=== PATIENT | female | born 1945 | race Caucasian/White ===

== ENCOUNTER 2020-01-15 14:23 | Emergency (ER) | payer MEDICARE, MEDICAID, SELFPAY ==
[2020-01-15] VITALS (8 sets, daily range): BP systolic 117–159; BP diastolic 71–92; PULSE 73–94; RESP 15–18; TEMP 36.6; O2SAT 93–96; BMI 23.5
--- NOTE | 2020-01-15 14:49 | CT_ITS ---
WS: [id number] CT HEAD NONCONTRAST HISTORY: AMS TECHNIQUE: Contiguous axial imaging performed through the brain in 2.5 mm imaging. Bone and soft tiss ue windows. Sagittal and coronal reformats reviewed. All CT scans at [facility] use at ast one of these dose optimization techniques: automated exposure control; mA and/or kV adjustment pe r patient size (includes targeted exams where dose is matched to clinical indication); or iterative r econstruction. DLP: 530.27 mGy.cm COMPARISON: 06/15/2019 No acute intracranial hemorrhage, midline shift or mass effect. Mild atrophy and moderate chronic microvascular ischemic disease. Ventricles: Normal size with no hydrocephalus. Paranasal sinuses: As visualized are clear. Mastoid air cells: Well pneumatized. Calvarium and scalp: Skull is intact with no soft tissue edema or swelling. CT/CT head wo con* [id number] IMPRESSION: 1. No acute intracranial hemorrhage. 2. Mild cerebral atrophy and moderate chronic microvascular ischemic disease. Similar to the prior study of 06/15/2019.
--- NOTE | 2020-01-15 14:49 | XR_ITS ---
WS: [id number] PORTABLE CHEST HISTORY: AMS COMPARISON: 03/15/2019 Mild pulmonary hyperexpansion. No pneumonia. Normal vasculature. No pleural effusion or pneumothorax. Cardiac size: Normal. Mediastinum/Aorta: Mild atherosclerosis aorta. Diffuse osteopenia. XR/XR chest 1V portable [id number] IMPRESSION: Chronic emphysema with no pneumonia.
--- NOTE | 2020-01-15 14:50 | ECG_ITS ---
Measurements Intervals [place] Rate: 79 P: 52 IL: 142 QRS: 36 QRSD: 89 T: 84 QT: 401 QTc: 461 SINUS RHYTHM NONSPECIFIC T-WAVE ABNORMALITY Compared to ECG 06/13/2019 23:41:49 T-wave abnormality now present Electronically Signed On 01-15-2020 16:48:16 CDT by Ata Stapleton M.D. [id number] f
--- NOTE | 2020-01-15 15:31 | W.ED.AMS ---
HPI - Altered Mental Status General: Chief Complaint: Altered Mental Status Stated Complaint: AMS Time Seen by Provider: 01/15/20 14:38 History of Present Illness: HPI narrative: Patient is a 74-year-old female coming from [facility]. She was sent for decreased mental status and decreased respiratory rate. She also had a fall over the weekend and there is concern that she could have an occult right hip fracture. Review of Systems General: Reports: ROS unobtainable due to mental status PFSH ED PFSH: Social History Smoking and tobacco status: unknown if ever smoked Physical Exam Const: COMMON NORMALS: no acute distress and no limitations GENERAL APPEARANCE: comfortable HENMT: HEAD & SCALP: normal to inspection FACE & SINUS: normal facial exam Eye: GENERAL EYE: appearance normal, both eyes and all related structures Neck/C-Spine: COMMON NORMALS: supple, no meningeal signs and no JVD Chest: COMMONS NORMALS: normal inspection of the chest Resp: COMMON NORMALS: normal respiratory effort, No use of accessory muscles and clear to auscultation bilaterally AUSCULTATION: clear to auscultation bilaterally Cardio: COMMON NORMALS: no JVD, regular rate, regular rhythm and No murmurs present (Cardio) RATE: regular rate RHYTHM: regular rhythm GI: COMMON NORMALS: Normal to inspection, nondistended, normoactive bowel sounds present, Soft to palpation and non-tender INSPECTION: Yes normal to inspection AUSCULTATION: Yes normoactive bowel sounds PALPATION: Yes Soft to palpation Back/Pelvis: COMMON NORMALS: thoracic and lumbar spine normal to inspection Extremity: COMMON NORMALS: normal to inspection RIGHT LOWER EXTREMITY: Yes hip joint (Pain with any attempt to range the hip, pulses intact bilaterally.) Neuro: COMMON NORMALS: moves all extremities, no focal motor deficits and no sensory deficits noted MENINGEAL SIGNS: Yes no meningeal signs Psych: ACTIVITY/MOTOR BEHAVIOR: Yes psychomotor slowing Skin: COMMON NORMALS: no rashes or lesions noted and turgor normal GENERAL SKIN EXAM: no rashes or lesions noted and turgor normal Course ED course: The patient was worked up with head CT, x-rays and then a CT of her hip and blood work. Chest x-ray was also done. The work-up was unremarkable and I called and spoke to Shima who is a nurse at the [place] [facility]. She was familiar with this patient and was able to tell me that this is fairly close to her baseline. It sounds like they have had to make a lot of medication changes recently trying to find something that would control agitation without causing her to be oversedated. As we did not find any acute cause for her mental status today and it sounds like this is very close to her baseline we will let her go back to the [place] [facility]. Vital Signs: Vital signs: Vital Signs Temperature 97.8 F 01/15/20 14:29 Pulse Rate 94 01/15/20 18:30 Respiratory Rate 18 01/15/20 18:30 Blood Pressure 159/92 01/15/20 18:30 Pulse Oximetry 95 01/15/20 18:30 MDM - Altered Mental Status Lab Data: Labs: Lab Results 01/15/20 01/15/20 01/15/20 Range/Units 15:25 15:36 15:36 WBC 11.9 H (4.0-10.0) 10^3/ uL RBC 3.65 L (4.1-5.3) 10^6/u L Hgb 11.5 (11.5-15.3) g/dL Hct 36.4 L (37.0-47.0) % MCV 99.7 H (81-99) fL MCH 31.5 (28.0-34.0) pg MCHC 31.6 (30.0-36.0) g/dL RDW 12.8 (12.1-15.1) % Plt Count 289 (130-400) 10^3/c mm MPV 10.6 H (7.4-10.4) fL Neut % (Auto) 61.9 % Lymph % (Auto) 23.7 % [place] % (Auto) 12.4 % Eos % (Auto) 1.0 % Baso % (Auto) 0.7 % Neut # (Auto) 7.4 (1.8-7.7) 10^3/u L Lymph # (Auto) 2.8 (0.8-4.8) 10^3/u L [place] # (Auto) 1.5 H (0.2-0.9) 10^3/u L Eos # (Auto) 0.1 (0.0-0.8) 10^3/u L Baso # (Auto) 0.1 (0.0-0.1) 10^3/u L Nucleated RBC % (a uto) 0 % Nucleated RBCs # 0.0 /100WBC ESR (0-15) mm/hr D-Dimer (0-0.59) ug/mIFE U Specimen Type Arterial Sample Site Radial, left ABG pH 7.45 (7.35-7.45) ABG pCO2 40.7 (35-45) mmHg ABG pO2 56.7 L (80.0-100.0) mmH g ABG HCO3 27.9 H (22-26) mmol/L ABG Base Excess 3.5 H (-2.0-2.0) mmol/ L Yovany Test Pos Hematocrit 38.7 (37-47) % O2 Delivery Device Nc O2 Liters/Min 2.0 % Hospital Sales Representative ID jmn Sodium 139 (136-145) mmol/L Potassium 4.2 (3.5-5.1) mmol/L Chloride 101 (98-107) mmol/L Carbon Dioxide 24 (22-29) mmol/L Anion Gap 18.2 (5-19) BUN 24 H (8-23) mg/dL Creatinine 0.7 (0.5-0.9) mg/dL Glucose 105 (65-115) mg/dL Calculated Osmolal ity 285 (285-295) mOsm/k g Lactate (0.5-2.2) mmol/L Calcium 9.4 (8.5-10.5) mg/dL Total Bilirubin 0.7 (0.15-1.2) mg/dL AST 14 (0-32) U/L ALT 8 (0-33) U/L Alkaline Phosphata se 74 (35-105) IU/L Troponin T Baselin e (0-10) ng/mL Troponin T 120 Min jackson (0-10) ng/mL Delta Troponin T (0-10) ABS# C-Reactive Protein 21.3 H (0.0-4.9) mg/L Total Protein 7.2 (6.6-8.7) g/dL Albumin 3.9 (3.5-5.2) g/dL Globulin 3.3 (1.3-4.6) g/dL Procalcitonin 0.06 (0-0.5) ng/mL Urine Color (Yellow) Urine Appearance (CLEAR) Urine pH (5-7) Ur Specific Gravit y (1.005-1.030) Urine Protein (Negative) Urine Glucose (UA) (Normal) Urine Ketones (Negative) Urine Blood (Negative) Urine Nitrate (Negative) Urine Bilirubin (NEGATIVE) Urine Urobilinogen (Negative) mg/dL Ur Leukocyte Faye ase (Negative) Valproic Acid 44.9 L (50-100) mcg/mL 01/15/20 01/15/20 01/15/20 Range/Units 15:36 15:36 15:36 WBC (4.0-10.0) 10^3/ uL RBC (4.1-5.3) 10^6/u L Hgb (11.5-15.3) g/dL Hct (37.0-47.0) % MCV (81-99) fL MCH (28.0-34.0) pg MCHC (30.0-36.0) g/dL RDW (12.1-15.1) % Plt Count (130-400) 10^3/c mm MPV (7.4-10.4) fL Neut % (Auto) % Lymph % (Auto) % [place] % (Auto) % Eos % (Auto) % Baso % (Auto) % Neut # (Auto) (1.8-7.7) 10^3/u L Lymph # (Auto) (0.8-4.8) 10^3/u L [place] # (Auto) (0.2-0.9) 10^3/u L Eos # (Auto) (0.0-0.8) 10^3/u L Baso # (Auto) (0.0-0.1) 10^3/u L Nucleated RBC % (a uto) % Nucleated RBCs # /100WBC ESR 56 H (0-15) mm/hr D-Dimer 0.60 H (0-0.59) ug/mIFE U Specimen Type Sample Site ABG pH (7.35-7.45) ABG pCO2 (35-45) mmHg ABG pO2 (80.0-100.0) mmH g ABG HCO3 (22-26) mmol/L ABG Base Excess (-2.0-2.0) mmol/ L Yovany Test Hematocrit (37-47) % O2 Delivery Device O2 Liters/Min % Hospital Sales Representative ID Sodium (136-145) mmol/L Potassium (3.5-5.1) mmol/L Chloride (98-107) mmol/L Carbon Dioxide (22-29) mmol/L Anion Gap (5-19) BUN (8-23) mg/dL Creatinine (0.5-0.9) mg/dL Glucose (65-115) mg/dL Calculated Osmolal ity (285-295) mOsm/k g Lactate 1.3 (0.5-2.2) mmol/L Calcium (8.5-10.5) mg/dL Total Bilirubin (0.15-1.2) mg/dL AST (0-32) U/L ALT (0-33) U/L Alkaline Phosphata se (35-105) IU/L Troponin T Baselin e (0-10) ng/mL Troponin T 120 Min jackson (0-10) ng/mL Delta Troponin T (0-10) ABS# C-Reactive Protein (0.0-4.9) mg/L Total Protein (6.6-8.7) g/dL Albumin (3.5-5.2) g/dL Globulin (1.3-4.6) g/dL Procalcitonin (0-0.5) ng/mL Urine Color (Yellow) Urine Appearance (CLEAR) Urine pH (5-7) Ur Specific Gravit y (1.005-1.030) Urine Protein (Negative) Urine Glucose (UA) (Normal) Urine Ketones (Negative) Urine Blood (Negative) Urine Nitrate (Negative) Urine Bilirubin (NEGATIVE) Urine Urobilinogen (Negative) mg/dL Ur Leukocyte Faye ase (Negative) Valproic Acid (50-100) mcg/mL 01/15/20 01/15/20 01/15/20 Range/Units 15:36 17:34 18:30 WBC (4.0-10.0) 10^3/ uL RBC (4.1-5.3) 10^6/u L Hgb (11.5-15.3) g/dL Hct (37.0-47.0) % MCV (81-99) fL MCH (28.0-34.0) pg MCHC (30.0-36.0) g/dL RDW (12.1-15.1) % Plt Count (130-400) 10^3/c mm MPV (7.4-10.4) fL Neut % (Auto) % Lymph % (Auto) % [place] % (Auto) % Eos % (Auto) % Baso % (Auto) % Neut # (Auto) (1.8-7.7) 10^3/u L Lymph # (Auto) (0.8-4.8) 10^3/u L [place] # (Auto) (0.2-0.9) 10^3/u L Eos # (Auto) (0.0-0.8) 10^3/u L Baso # (Auto) (0.0-0.1) 10^3/u L Nucleated RBC % (a uto) % Nucleated RBCs # /100WBC ESR (0-15) mm/hr D-Dimer (0-0.59) ug/mIFE U Specimen Type Sample Site ABG pH (7.35-7.45) ABG pCO2 (35-45) mmHg ABG pO2 (80.0-100.0) mmH g ABG HCO3 (22-26) mmol/L ABG Base Excess (-2.0-2.0) mmol/ L Yovany Test Hematocrit (37-47) % O2 Delivery Device O2 Liters/Min % Hospital Sales Representative ID Sodium (136-145) mmol/L Potassium (3.5-5.1) mmol/L Chloride (98-107) mmol/L Carbon Dioxide (22-29) mmol/L Anion Gap (5-19) BUN (8-23) mg/dL Creatinine (0.5-0.9) mg/dL Glucose (65-115) mg/dL Calculated Osmolal ity (285-295) mOsm/k g Lactate (0.5-2.2) mmol/L Calcium (8.5-10.5) mg/dL Total Bilirubin (0.15-1.2) mg/dL AST (0-32) U/L ALT (0-33) U/L Alkaline Phosphata se (35-105) IU/L Troponin T Baselin e 13 H (0-10) ng/mL Troponin T 120 Min jackson 12.43 H (0-10) ng/mL Delta Troponin T -0.57 L (0-10) ABS# C-Reactive Protein (0.0-4.9) mg/L Total Protein (6.6-8.7) g/dL Albumin (3.5-5.2) g/dL Globulin (1.3-4.6) g/dL Procalcitonin (0-0.5) ng/mL Urine Color Yellow (Yellow) Urine Appearance Clear (CLEAR) Urine pH 8 H (5-7) Ur Specific Gravit y 1.015 (1.005-1.030) Urine Protein Neg (Negative) Urine Glucose (UA) Norm (Normal) Urine Ketones Negative (Negative) Urine Blood Neg (Negative) Urine Nitrate Negative (Negative) Urine Bilirubin Neg (NEGATIVE) Urine Urobilinogen 1 H (Negative) mg/dL Ur Leukocyte Faye ase Negative (Negative) Valproic Acid (50-100) mcg/mL Discharge Plan Discharge Patient Disposition: [facility] Clinical Impression: Altered mental status Qualifiers: Altered mental status type: unspecified Qualified Code(s): R41.82 - Altered mental status, unspecified Contusion of hip Qualifiers: Encounter type: initial encounter Laterality: right Qualified Code(s): S70.01XA - Contusion of right hip, initial encounter Condition: Stable Prescriptions: No Action metformin 500 mg Tablet 500 mg PO DAILY RF: 0 Advair Diskus 250-50 mcg/dose Blister With Device 1 inh INHALATION BID RF: 0 atorvastatin 20 mg Tablet 20 mg PO DAILY RF: 0 divalproex 250 mg Tablet,Delayed Release (Dr/Ec) 250 mg PO BID RF: 0 [place] 5-325 mg Tablet 1 tab PO Q4H PRN (Reason: Pain) RF: 0 cyanocobalamin (vitamin B-12) 1,000 mcg Tablet 1,000 mcg PO DAILY RF: 0 Norvasc 5 mg Tablet 5 mg PO DAILY RF: 0 Aspir-81 81 mg Tablet,Delayed Release (Dr/Ec) 81 mg PO DAILY RF: 0 venlafaxine 100 mg Tablet 100 mg PO BID RF: 0 lorazepam 0.5 mg Tablet 0.5 mg PO BID PRN (Reason: unknown) RF: 0 baclofen 10 mg Tablet 10 mg PO TID RF: 0 benztropine 1 mg Tablet 1 mg PO DAILY RF: 0 omeprazole 20 mg Capsule,Delayed Release(Dr/Ec) 20 mg PO DAILY RF: 0 folic acid 1 mg Tablet 1 mg PO DAILY RF: 0 Singulair 10 mg Tablet 10 mg PO DAILY RF: 0 mirtazapine 15 mg Tablet 15 mg PO DAILY RF: 0 Flonase Allergy Relief 50 mcg/actuation [place],Suspension 2 spray INTRANASAL DAILY RF: 0 memantine 5 mg Tablet 5 mg PO BID RF: 0 metoprolol tartrate 25 mg Tablet 25 mg PO DAILY RF: 0 T-Gel Shampoo See Rx Instructions .ROUTE .COMPLEX RF: 0 Miralax 17 gram Powder In Packet 17 g PO DAILY PRN (Reason: Constipation) RF: 0 Senna-S 8.6-50 mg Tablet 1 tab-cap PO BID PRN (Reason: Constipation) RF: 0 acetaminophen 500 mg Tablet 500 mg PO DAILY PRN (Reason: prn) RF: 0 Milk of Magnesia 400 mg/5 mL Suspension 30 ml PO DAILY PRN (Reason: Constipation) RF: 0 calcium carbonate 500 mg calcium (1,250 mg) Tablet 500 mg PO DAILY PRN (Reason: unknown) RF: 0 bisacodyl 10 mg Suppository 10 mg OH DAILY PRN (Reason: Constipation) RF: 0 Enema Disposable 19-7 gram/118 mL Enema 118 ml OH DAILY PRN (Reason: unknown) RF: 0 Colace 100 mg Capsule 100 mg PO BID PRN (Reason: unknown) RF: 0 haloperidol decanoate 50 mg/mL solution 50 mg IM Q30D RF: 0 albuterol sulfate 90 mcg/actuation Hfa Aerosol Inhaler 2 puff INHALATION Q6H PRN (Reason: Shortness Of Breath) RF: 0 Discharge Orders: Discharge Order (Routine); Ordered 01/15/20 Ordered By: Norma Bobby Discharge Diet: Usual diet Discharge Activity: Resume usual activity Activity Restrictions/Additional Instructions: Continue current medications Coding Level of Care Code ED Apparel Sales Associate for Michael Catalan
--- NOTE | 2020-01-15 15:32 | XR_ITS ---
WS: [id number] PELVIS AND BILATERAL HIPS TECHNIQUE: AP pelvis and AP and lateral hips. HISTORY: fall, hip pain COMPARISON: None available. Pelvis: Osteopenia. Symmetric appearance of the bones of the pelvis. Sacrum is poorly visualized due to overlying soft tissue. Mild narrowing of the hip joints. Right hip: Mild narrowing of the RIGHT hip joint. No fracture or dislocation. Left hip: Mild narrowing of the LEFT hip joint. No fracture or dislocation. Quality of examination is limited. XR/XR hip BI m 5V wo/w pel* [id number] IMPRESSION: 1. No fractures are identified within the pelvis or hips. Quality of examinati on is slightly suboptimal due to body habitus. If pain continues consider addit ional evaluation by CT. 2. Mild bilateral hip joint arthritis.
[2020-01-15 15:38] LABS: ABG PCO2 40.7 mmHg (35-45); ABG PH Result 7.45 (7.35-7.45); Arterial Blood Gas Hematocrit 38.7 % (37-47); Base Excess ABG 3.5 mmol/L (-2.0-2.0); Blood Gas Allen Test Pos; Blood Gas Sample Site Radial, left; Blood Gas Sample Type Arterial; HCO3 ABG 27.9 mmol/L (22-26); Oxygen Device NC; PO2 ABG 56.7 mmHg (80.0-100.0)
[2020-01-15 15:47] LABS: Basophils # 0.1 10^3/uL (0.0-0.1); Basophils % 0.7 %; Eosinophils # 0.1 10^3/uL (0.0-0.8); Hematocrit 36.4 % (37.0-47.0); Hemoglobin 11.5 g/dL (11.5-15.3); Lymphocytes # 2.8 10^3/uL (0.8-4.8); Lymphocytes % 23.7 %; Mean Corpuscular HGB Conc 31.6 g/dL (30.0-36.0); Mean Corpuscular Hemoglobin 31.5 pg (28.0-34.0); Mean Corpuscular Volume 99.7 fL (81-99); Mean Platelet Volume 10.6 fL (7.4-10.4); Monocytes # 1.5 10^3/uL (0.2-0.9); Monocytes % 12.4 %; Neutrophils # 7.4 10^3/uL (1.8-7.7); Neutrophils % 61.9 %; Nucleated Red Blood Cells % 0 %; Platelet Count 289 10^3/cmm (130-400); Red Blood Count 3.65 10^6/uL (4.1-5.3); Red Cell Distribution Width 12.8 % (12.1-15.1); White Blood Count 11.9 10^3/uL (4.0-10.0)
[2020-01-15 16:03] LABS: Lactate (Lactic Acid level) 1.3 mmol/L (0.5-2.2)
[2020-01-15 16:04] LABS: Troponin(5th) Baseline 13 ng/mL (0-10)
[2020-01-15 16:30] LABS: Alanine Aminotransferase 8 U/L (0-33); Albumin Level 3.9 g/dL (3.5-5.2); Alkaline Phosphatase 74 IU/L (35-105); Anion Gap 18.2 (5-19); Aspartate Amino Transferase 14 U/L (0-32); Blood Urea Nitrogen 24 mg/dL (8-23); Calcium 9.4 mg/dL (8.5-10.5); Carbon Dioxide 24 mmol/L (22-29); Chloride 101 mmol/L (98-107); Creatinine Clr Calc Pharmacy 64.3984; Globulin 3.3 g/dL (1.3-4.6); Glucose 105 mg/dL (65-115); Osmolality Calculated 285 mOsm/kg (285-295); Potassium 4.2 mmol/L (3.5-5.1); Sodium 139 mmol/L (136-145); Total Bilirubin 0.7 mg/dL (0.15-1.2); Total Protein 7.2 g/dL (6.6-8.7); Valproic Acid Level 44.9 mcg/mL (50-100)
[2020-01-15 17:17] LABS: Procalcitonin 0.06 ng/mL (0-0.5)
[2020-01-15 17:28] LABS: C Reactive Protein 21.3 mg/L (0.0-4.9)
--- NOTE | 2020-01-15 17:44 | PC.NURSE ---
EKG done at 1714 and shown to ER doctor
[2020-01-15 18:10] LABS: Troponin 5 2HR 12.43 ng/mL (0-10)
[2020-01-15 18:13] LABS: Troponin 5 2HR Delta -0.57 ABS# (0-10)
[2020-01-15 18:39] LABS: Add Urine Microscopic? NO
[2020-01-15 18:48] LABS: Bilirubin Urine Neg (NEGATIVE); Blood Urine Neg (Negative); Glucose Urine UA Norm (Normal); Ketones Urine Negative (Negative); Leukocyte Esterase Urine Negative (Negative); Nitrate Urine Negative (Negative); Protein Urine Neg (Negative); Specific Gravity, Urine 1.015 (1.005-1.030); Urine Appearance Clear (CLEAR); Urine Color Yellow (Yellow); Urobilinogen Urine 1 mg/dL (Negative); pH Urine 8 (5-7)
--- NOTE | 2020-01-15 19:15 | CTR_ITS ---
PROCEDURE INFORMATION: Exam: CT Right Lower Extremity Without Contrast, Hip Exam date and time: 01/15/2020 7:21 PM Age: 74 years old Clinical indication: Injury or trauma; Fall; Initial encounter; Blunt trauma; Hip; Right; Additional info: Pain, equivalent xray TECHNIQUE: Imaging protocol: CT of the Right lower extremity without contrast was performed. Exam focused on the hip. Radiation optimization: All CT scans at this facility use at least one of these dose optimization techniques: automated exposure control; mA and/or kV adjustment per patient size (includes targeted exams where dose is matched to clinical indication); or iterative reconstruction. COMPARISON: CR XR hip BI m 5V wo/w pel* [id number] 01/15/2020 4:11 PM RADIATION DOSE METRICS: Total DLP: 1822.9 mGy-cm FINDINGS: Bones/joints: No visible fracture, subluxation, or dislocation. No visible joint effusion. 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 Soft tissues: Right buttocks subcutaneous contusion and hematoma measuring approximately 80 mm x 38 mm x 60 mm. Retroperitoneal space: Intraperitoneal and retroperitoneal structures within the field of view without visible evidence of active pathologic process. CT/CT hip RT wo con* [id number] IMPRESSION: 1. No visible fracture, subluxation, or dislocation. 2. Right buttock soft tissue contusion/hematoma. Radiation Dose CTDIVOL = (mGy): DLP = 1822.9 (mGy-cm)
[2020-01-15 20:08] LABS: Erythrocyte Sedimentation Rate 56 mm/hr (0-15)
--- NOTE | 2020-01-15 20:50 | ECG_ITS ---
Measurements Intervals [place] Rate: 85 P: 53 IL: 148 QRS: 38 QRSD: 84 T: 63 QT: 378 QTc: 450 SINUS RHYTHM Compared to ECG 01/15/2020 15:20:30 T-wave abnormality no longer present Electronically Signed On 01-16-2020 19:00:43 CDT by Kaitlynn Salter M.D. [id number]
[2020-01-16 00:59] VITALS: PULSE 102; O2SAT 96
== END 2020-01-15 23:50 | disposition skilled nursing facility (03) ==
PROVIDERS: Emergency Provider Emergency Medicine
DX: R41.82 Altered mental status, unspecified (principal); S70.01XA Contusion of right hip, initial encounter; W19.XXXA Unspecified fall, initial encounter; Z79.82 Long term (current) use of aspirin
CPT/HCPCS: 12345; 36415; 36600; 70450; 71045; 73523; 73700; 80053; 80164; 81003; 82803; 83605; 84145; 84484; 85025; 85378; 85651; 86140; 93005; 99283; 99284

== ENCOUNTER 2020-07-03 13:01 | Inpatient (IN) | payer MEDICARE, MEDICAID, SELFPAY ==
[2020-07-03] VITALS (25 sets, daily range): BP systolic 79–108; BP diastolic 53–79; PULSE 73–135; RESP 14–54; TEMP 36.9–38.4; O2SAT 81–97; BMI 23.1
[2020-07-03] MEDS: succinylcholine 20 mg/mL SDV 10mL 125 MG IVP (13:09)
--- NOTE | 2020-07-03 13:17 | XRR_ITS ---
PROCEDURE INFORMATION: Exam: XR Chest, 1 View Exam date and time: 07/03/2020 1:23 PM Age: 75 years old Clinical indication: Shortness of breath; Patient HX: PT intubated, limited HX available, PT did test positive for covid recently; Additional info: SOB TECHNIQUE: Imaging protocol: XR of the chest Views: 1 view. COMPARISON: CR XR chest 1V portable [id number] 01/15/2020 3:16 PM FINDINGS: Tubes, catheters and devices: An endotracheal tube is present in satisfactory position. A nasogastric tube is present with the tip projecting at the gastroesophageal junction and further advancement into the stomach is advised. Lungs: There is pulmonary interstitial fibrosis which is similar to old study. No new infiltrates are seen. Pleural space: Unremarkable. No pleural effusion. No pneumothorax. Heart/Mediastinum: Unremarkable. No cardiomegaly. Bones/joints: Unremarkable. XR/XR chest 1V portable [id number] IMPRESSION: 1. The tip of the nasogastric tube is at the GE junction and advancement into the stomach is advised. 2. No acute cardiopulmonary abnormality.
[2020-07-03] MEDS: sodium chloride 0.9% 1,000 ML 999 ML IV ×2 (13:22→15:45)
--- NOTE | 2020-07-03 13:27 | ECG_ITS ---
[facility] Test Date: 2020-07-03 Pat Name: Naida Yap Department: Room: Gender: Female Boom Worker: : 1945 Requested By: Norma Heath Order Number: [id number] Shawn MD: Chandler Santos M.D. Measurements Intervals [place] Rate: 104 P: 81 VT: 122 QRS: 52 QRSD: 80 T: 72 QT: 355 QTc: 468 Interpretive Statements SINUS TACHYCARDIA WITH OCCASIONAL SUPRAVENTRICULAR PREMATURE COMPLEXES ABNORMAL RHYTHM ECG Compared to ECG 01/15/2020 17:14:25 Sinus rhythm no longer present Electronically Signed On 07-03-2020 18:58:07 CANVAS GOODS SUPERVISOR by Chandler Santos M.D. [email or web address] health st. rita's medical centerBluePoint Security™/store/[id number] f
[2020-07-03 13:36] LABS: INR 1.98 (0.8-1.2)
[2020-07-03 13:37] LABS: Basophils # 0.1 10^3/uL (0.0-0.1); Basophils % 0.5 %; Eosinophils # 0.1 10^3/uL (0.0-0.8); Eosinophils % 0.2 %; Fibrinogen 613 mg/dL (174-498); Hemoglobin 15.2 g/dL (11.5-15.3); Lymphocytes # 1.2 10^3/uL (0.8-4.8); Lymphocytes % 5.6 %; Mean Corpuscular HGB Conc 29.8 g/dL (30.0-36.0); Mean Corpuscular Hemoglobin 30.9 pg (28.0-34.0); Mean Corpuscular Volume 103.7 fL (81-99); Mean Platelet Volume 12.3 fL (7.4-10.4); Monocytes % 4.7 %; Neutrophils % 86.1 %; Nucleated Red Blood Cells # 0.1 /100WBC; Nucleated Red Blood Cells % 0.5 %; Platelet Count 332 10^3/cmm (130-400); Red Blood Count 4.92 10^6/uL (4.1-5.3); Red Cell Distribution Width 15.3 % (12.1-15.1)
[2020-07-03 13:43] LABS: ABG PCO2 35.7 mmHg (35-45); ABG PH Result 7.33 (7.35-7.45); Arterial Blood Gas Hematocrit 40.5 % (37-47); Base Excess ABG -6.5 mmol/L (-2.0-2.0); Blood Gas Allen Test Pos; Blood Gas Sample Type Arterial; HCO3 ABG 18.7 mmol/L (22-26); PO2 ABG 73.3 mmHg (80.0-100.0)
[2020-07-03 13:44] LABS: Blood Gas Operator Identificat CAK; Blood Gas Sample Site Brachial, left; Blood Gas Tidal Volume 0.45; Oxygen Device VENT
[2020-07-03 13:44] LABS: Troponin(5th) Baseline 66 ng/L (0-10)
--- NOTE | 2020-07-03 13:49 | PC.NURSE ---
Pt arrived via EMS from [facility] in resp distress. RT and Dr Bobby at bedside with pt arrival. Pt was immediately set up for intubation. Pt was given medications and intubated with an 8.0 tube, 24 at the lip at 1310. OG placed by Dr Bobby. Kowalski catheter placed. Pt tolerated all procedures well. Pt was given a bolus of 50mcg from the drip at 1327. Pt placed in soft restraints for safety at 1332. OG tube placed further by Dr Bobby at 1352. EKG performed at bedside at 1343. Pt tolerating sedation at this time. Dr Bobby aware of pt BP trends.
--- NOTE | 2020-07-03 13:57 | W.ED.COVID ---
HPI - COVID General: Chief Complaint: COVID symptoms Stated Complaint: RESP DISTRESS; COVID + Time Seen by Provider: 07/03/20 13:16 Triage information: Has fever, cough or shortness of breath. Exposure to COVID + person last 14 days History of Present Illness: HPI Narrative: This patient is a 75-year-old snf resident from [facility]. She presents today with respiratory failure on day 9 of a Covid diagnosis. She had a positive Covid test on June 24. I am not able to obtain any further history about her course. I see from her snf MAR that she is on azithromycin and dexamethasone which were prescribed on the . She has a history of dementia but is normally conversational. Today she is poorly responsive. At the snf she had sats in the 80s on nasal cannula. She was put on 15 L by nonrebreather by EMS and her sats are still only in the mid 80s. Respiratory rates in the 60s and heart rates in the 130s. She is a full code. MD complaint: known COVID positive Prior covid testing: yes, results known Prior testing date: 06/24/20 COVID 19 common symptoms: positive fever(s) and dyspnea Onset (ago): unknown Severity: severe Pertinent comorbid conditions: diabetes, COPD/respiratory disease and on home oxygen Treatment prior to arrival: other (See HPI) COVID Results: No Data to Display Review of Systems General: Reports: ROS unobtainable due to medical condition and ROS unobtainable due to mental status Const: Reports: fever(s) Resp: Reports: dyspnea [facility] ED PFSH: Social History Smoking and tobacco status: unknown if ever smoked Physical Exam Const: GENERAL APPEARANCE: in distress, anxious, lethargic, ill appearing and frail appearing NUTRITIONAL APPEARANCE: thin ORIENTATION/CONSCIOUSNESS: Yes lethargic HENMT: HEAD & SCALP: normal to inspection FACE & SINUS: normal facial exam Eye: GENERAL EYE: appearance normal, both eyes and all related structures Neck/C-Spine: COMMON NORMALS: supple, no meningeal signs and no JVD Chest: COMMONS NORMALS: normal inspection of the chest Resp: EFFORT & INSPECTION: Yes tachypneic, Yes respiratory distress and Yes uses accessory muscles AUSCULTATION: diminished lung sounds Cardio: COMMON NORMALS: no JVD, regular rate, regular rhythm and No murmurs present (Cardio) RATE: regular rate RHYTHM: regular rhythm GI: COMMON NORMALS: Normal to inspection, nondistended, normoactive bowel sounds present, Soft to palpation and non-tender INSPECTION: Yes normal to inspection AUSCULTATION: Yes normoactive bowel sounds PALPATION: Yes Soft to palpation Back/Pelvis: COMMON NORMALS: thoracic and lumbar spine normal to inspection Extremity: COMMON NORMALS: normal to inspection Neuro: COMMON NORMALS: moves all extremities, no focal motor deficits and no sensory deficits noted SENSORIUM/ORIENTATION: Yes lethargic MENINGEAL SIGNS: Yes no meningeal signs Psych: COMMON NORMALS: mental status grossly normal, cooperative and normal affect Skin: COMMON NORMALS: no rashes or lesions noted and turgor normal GENERAL SKIN EXAM: no rashes or lesions noted and turgor normal Procedures Central Line Placement Left IJ: Time Out Performed: Yes Patient Placed on Monitor/Pulse Ox: Yes MD Prep: mask, gown and gloves Central Line Prep: Chlorhexidine scrub Ultrasound Used for Placement: No (Ultrasound was not functioning properly and was of limited utility) Central Line Lumen Inserted: triple Post Procedure: sutured in place, good blood return, all ports aspirated, flushed, capped and sterile dressing applied Post Procedure X-Ray: tip of catheter in good position (Suspicious for arterial placement) Complications: arterial puncture/cannulation (Possibly) Additional Comments: Initial attempt on the right IJ with difficulty passing the catheter. Intubation Time out performed: Yes sedative: Etomidate paralytic: Succinylcholine Laryngoscope: fiber optic video scope ET Tube Size: 8 ET Tube Uncuffed: No Tube Secured Depth (cm): 24 Tube Secured Location: lips Tube Placement Confirmation: visualized tube passing through cords, equal breath sounds bilaterally, no breath sounds over epigastrium and confirmation by capnometry Patient Tolerated Procedure: well Intubation Complications: none Course ED course: Ms. byrne was having severe respiratory distress on arrival and was intubated very shortly after arrival. She was given succinylcholine and etomidate and intubated without difficulty. Her oxygenation did improve but she continued to require high FiO2 of 80%. Chest x-ray was remarkably clear. Clinically she appeared extremely dry and this was confirmed by her blood work with a sodium of 162. Renal function showed a BUN of 55 and a creatinine of 1.8. BNP was elevated at 2062. She was given fluids for hypotension and dehydration. A total of 2 L of normal saline were eventually given and then she was started on Levophed for continued hypotension. She was given IV Decadron, remdesivir, IV Tylenol and subcu heparin due to a Lovenox allergy. White count was 22,000. INR was 1.98. D-dimer was 15.65. Fibrinogen was 613. Lactate was 4.8. CRP was 86.5. Procalcitonin was 1.9. Initial ABG showed a pH of 7.33 with a PaCO2 of 35.7 and a PaO2 of 73.3. Bicarb was 18.7 with a base excess of -6.5. Initially we did not think we were can have a bed here at this hospital but we were able to eventually get 1 after moving some patients around on the floor and in the VICU. She remained borderline hypotensive in the ER. Heart rate remained around 80 and her sats right now are 97% on the ventilator. Temperature came down. She looked overall better with better perfusion of her skin. She will be admitted to Dr. Sanford. He requested that I put a central line in. At the time she did have 4 peripheral IVs but he wanted to run Levophed and preferred to have a central line. Attempted a central line in the right IJ and was not able to get it to advance. And then attempted again in the left IJ and I am suspicious that it might be placed in the artery. The chest x-ray was also suspicious for this though not confirmatory. I discussed this with Dr. Sanford and were going to see what it looks like on the CT of the chest that he has already ordered. If it appears to be in the artery we will take it out and apply pressure. For now I have asked the nurses not to use the central line and we will not give any further anticoagulation until the location of the line is confirmed. She is getting the Levophed through peripheral line without any problem so far. She also has a Kowalski in place with very minimal urine output. Reevaluation(s): Reevaluation #1: The patient still not had gone for CT or to the ICU when I left at the end of my shift. I explained the situation to Dr. Honeycutt and he will be available to place another central line if necessary. Vital Signs: Vital signs: Vital Signs Temperature 98.5 F 07/04/20 04:00 Pulse Rate 82 07/04/20 16:15 Respiratory Rate 19 H 07/04/20 17:06 Blood Pressure 96/53 07/04/20 16:15 Pulse Oximetry 93 07/04/20 16:15 MDM - COVID Lab Data Result diagrams: 07/04/20 03:15 07/04/20 10:55 Labs: Lab Results 07/03/20 07/03/20 07/03/20 Range/Units 13:07 13:07 13:07 WBC 22.0 H (4.0-10.0) 10^3/uL RBC 4.92 (4.1-5.3) 10^6/uL Hgb 15.2 (11.5-15.3) g/dL Hct 51.0 H (37.0-47.0) % MCV 103.7 H (81-99) fL MCH 30.9 (28.0-34.0) pg MCHC 29.8 L (30.0-36.0) g/dL RDW 15.3 H (12.1-15.1) % Plt Count 332 (130-400) 10^3/cmm MPV 12.3 H (7.4-10.4) fL Neut % (Auto) 86.1 % Lymph % (Auto) 5.6 % Daggett % (Auto) 4.7 % Eos % (Auto) 0.2 % Baso % (Auto) 0.5 % Neut # (Auto) 18.90 H (1.8-7.7) 10^3/uL Lymph # (Auto) 1.2 (0.8-4.8) 10^3/uL Daggett # (Auto) 1.0 H (0.2-0.9) 10^3/uL Eos # (Auto) 0.1 (0.0-0.8) 10^3/uL Baso # (Auto) 0.1 (0.0-0.1) 10^3/uL Nucleated RBC % (auto) 0.5 % Nucleated RBCs # 0.1 /100WBC PT 23.30 H (12.1-14.9) SECONDS INR 1.98 H (0.8-1.2) Fibrinogen 613 H (174-498) mg/dL D-Dimer (0-0.59) ug/mIFEU Specimen Type Sample Site ABG pH (7.35-7.45) ABG pCO2 (35-45) mmHg ABG pO2 (80.0-100.0) mmHg ABG HCO3 (22-26) mmol/L ABG Base Excess (-2.0-2.0) mmol/L Yovany Test Hematocrit (37-47) % O2 Delivery Device FiO2 % Tidal Volume PEEP cmH20 Wireless Technician ID Sodium 162 H* (136-145) mmol/L Potassium 4.4 (3.5-5.1) mmol/L Chloride 123 H (98-107) mmol/L Carbon Dioxide 19 L (22-29) mmol/L Anion Gap 24.4 H (5-19) BUN 55 H (8-23) mg/dL Creatinine 1.8 H (0.5-0.9) mg/dL GFR Calculation Not Reportable Glucose 152 H (65-115) mg/dL Calculated Osmolality 352 H (285-295) mOsm/kg Lactic Acid (0.5-2.2) mmol/L Lactic Acid (Sepsis) (0.5-2.2) mmol/L Uric Acid (2.4-5.7) mg/dL Calcium 9.4 (8.5-10.5) mg/dL Magnesium (1.7-2.3) mg/dL Total Bilirubin 0.3 (0.15-1.2) mg/dL AST 33 H (0-32) U/L ALT 11 (0-33) U/L Alkaline Phosphatase 75 (35-105) IU/L Creatine Kinase (26-192) U/L Troponin T Baseline (0-10) ng/L Troponin T 120 Minute (0-10) ng/L Delta Troponin T (0-10) ABS# C-Reactive Protein 86.5 H (0.0-4.9) mg/L NT-Pro-B Natriuret Pep 2062 H (0-125) pg/mL Total Protein 7.1 (6.6-8.7) g/dL Albumin 3.7 (3.5-5.2) g/dL Globulin 3.4 (1.3-4.6) g/dL Procalcitonin (0-0.5) ng/mL TSH (0.27-4.20) uIU/mL Urine Color (Yellow) Urine Appearance (CLEAR) Urine pH (5-7) Ur Specific [place] (1.005-1.030) Urine Protein (Negative) Urine Glucose (UA) (Normal) Urine Ketones (Negative) Urine Blood (Negative) Urine Nitrate (Negative) Urine Bilirubin (Negative) Urine Urobilinogen (Negative) mg/dL Ur Leukocyte Esterase (Negative) Urine RBC (0-2) /hpf Urine WBC (0-5) /hpf Ur Eosinophil Smear (0-0) Ur Squamous Epith Cells (0-5) /hpf Amorphous Sediment Urine Bacteria (NONE) /hpf Hyaline Casts /lpf Urine Mucus /hpf Urine Eosinophils U Random Total Protein mg/dL Ur Random Sodium mmol/L Ur Random Potassium mmol/L Ur Random Chloride mmol/L Ur Random Urea Nitrogn mg/dL Urine Creatinine Valproic Acid (50-100) ug/mL Influenza Type A Ag (Negative) Influenza Type B Ag (Negative) 07/03/20 07/03/20 07/03/20 Range/Units 13:07 13:07 13:07 WBC (4.0-10.0) 10^3/uL RBC (4.1-5.3) 10^6/uL Hgb (11.5-15.3) g/dL Hct (37.0-47.0) % MCV (81-99) fL MCH (28.0-34.0) pg MCHC (30.0-36.0) g/dL RDW (12.1-15.1) % Plt Count (130-400) 10^3/cmm MPV (7.4-10.4) fL Neut % (Auto) % Lymph % (Auto) % Daggett % (Auto) % Eos % (Auto) % Baso % (Auto) % Neut # (Auto) (1.8-7.7) 10^3/uL Lymph # (Auto) (0.8-4.8) 10^3/uL Daggett # (Auto) (0.2-0.9) 10^3/uL Eos # (Auto) (0.0-0.8) 10^3/uL Baso # (Auto) (0.0-0.1) 10^3/uL Nucleated RBC % (auto) % Nucleated RBCs # /100WBC PT (12.1-14.9) SECONDS INR (0.8-1.2) Fibrinogen (174-498) mg/dL D-Dimer 15.65 H (0-0.59) ug/mIFEU Specimen Type Sample Site ABG pH (7.35-7.45) ABG pCO2 (35-45) mmHg ABG pO2 (80.0-100.0) mmHg ABG HCO3 (22-26) mmol/L ABG Base Excess (-2.0-2.0) mmol/L Yovany Test Hematocrit (37-47) % O2 Delivery Device FiO2 % Tidal Volume PEEP cmH20 Wireless Technician ID Sodium (136-145) mmol/L Potassium (3.5-5.1) mmol/L Chloride (98-107) mmol/L Carbon Dioxide (22-29) mmol/L Anion Gap (5-19) BUN (8-23) mg/dL Creatinine (0.5-0.9) mg/dL GFR Calculation Glucose (65-115) mg/dL Calculated Osmolality (285-295) mOsm/kg Lactic Acid 4.8 H* (0.5-2.2) mmol/L Lactic Acid (Sepsis) (0.5-2.2) mmol/L Uric Acid (2.4-5.7) mg/dL Calcium (8.5-10.5) mg/dL Magnesium 2.5 H (1.7-2.3) mg/dL Total Bilirubin (0.15-1.2) mg/dL AST (0-32) U/L ALT (0-33) U/L Alkaline Phosphatase (35-105) IU/L Creatine Kinase (26-192) U/L Troponin T Baseline (0-10) ng/L Troponin T 120 Minute (0-10) ng/L Delta Troponin T (0-10) ABS# C-Reactive Protein (0.0-4.9) mg/L NT-Pro-B Natriuret Pep (0-125) pg/mL Total Protein (6.6-8.7) g/dL Albumin (3.5-5.2) g/dL Globulin (1.3-4.6) g/dL Procalcitonin 1.90 H (0-0.5) ng/mL TSH (0.27-4.20) uIU/mL Urine Color (Yellow) Urine Appearance (CLEAR) Urine pH (5-7) Ur Specific [place] (1.005-1.030) Urine Protein (Negative) Urine Glucose (UA) (Normal) Urine Ketones (Negative) Urine Blood (Negative) Urine Nitrate (Negative) Urine Bilirubin (Negative) Urine Urobilinogen (Negative) mg/dL Ur Leukocyte Esterase (Negative) Urine RBC (0-2) /hpf Urine WBC (0-5) /hpf Ur Eosinophil Smear (0-0) Ur Squamous Epith Cells (0-5) /hpf Amorphous Sediment Urine Bacteria (NONE) /hpf Hyaline Casts /lpf Urine Mucus /hpf Urine Eosinophils U Random Total Protein mg/dL Ur Random Sodium mmol/L Ur Random Potassium mmol/L Ur Random Chloride mmol/L Ur Random Urea Nitrogn mg/dL Urine Creatinine Valproic Acid (50-100) ug/mL Influenza Type A Ag (Negative) Influenza Type B Ag (Negative) 07/03/20 07/03/20 07/03/20 Range/Units 13:07 13:07 13:07 WBC (4.0-10.0) 10^3/uL RBC (4.1-5.3) 10^6/uL Hgb (11.5-15.3) g/dL Hct (37.0-47.0) % MCV (81-99) fL MCH (28.0-34.0) pg MCHC (30.0-36.0) g/dL RDW (12.1-15.1) % Plt Count (130-400) 10^3/cmm MPV (7.4-10.4) fL Neut % (Auto) % Lymph % (Auto) % Daggett % (Auto) % Eos % (Auto) % Baso % (Auto) % Neut # (Auto) (1.8-7.7) 10^3/uL Lymph # (Auto) (0.8-4.8) 10^3/uL Daggett # (Auto) (0.2-0.9) 10^3/uL Eos # (Auto) (0.0-0.8) 10^3/uL Baso # (Auto) (0.0-0.1) 10^3/uL Nucleated RBC % (auto) % Nucleated RBCs # /100WBC PT (12.1-14.9) SECONDS INR (0.8-1.2) Fibrinogen (174-498) mg/dL D-Dimer (0-0.59) ug/mIFEU Specimen Type Sample Site ABG pH (7.35-7.45) ABG pCO2 (35-45) mmHg ABG pO2 (80.0-100.0) mmHg ABG HCO3 (22-26) mmol/L ABG Base Excess (-2.0-2.0) mmol/L Yovany Test Hematocrit (37-47) % O2 Delivery Device FiO2 % Tidal Volume PEEP cmH20 Wireless Technician ID Sodium (136-145) mmol/L Potassium (3.5-5.1) mmol/L Chloride (98-107) mmol/L Carbon Dioxide (22-29) mmol/L Anion Gap (5-19) BUN (8-23) mg/dL Creatinine (0.5-0.9) mg/dL GFR Calculation Glucose (65-115) mg/dL Calculated Osmolality (285-295) mOsm/kg Lactic Acid (0.5-2.2) mmol/L Lactic Acid (Sepsis) (0.5-2.2) mmol/L Uric Acid 10.5 H (2.4-5.7) mg/dL Calcium (8.5-10.5) mg/dL Magnesium (1.7-2.3) mg/dL Total Bilirubin (0.15-1.2) mg/dL AST (0-32) U/L ALT (0-33) U/L Alkaline Phosphatase (35-105) IU/L Creatine Kinase 31 (26-192) U/L Troponin T Baseline 66 H (0-10) ng/L Troponin T 120 Minute (0-10) ng/L Delta Troponin T (0-10) ABS# C-Reactive Protein (0.0-4.9) mg/L NT-Pro-B Natriuret Pep (0-125) pg/mL Total Protein (6.6-8.7) g/dL Albumin (3.5-5.2) g/dL Globulin (1.3-4.6) g/dL Procalcitonin (0-0.5) ng/mL TSH 0.86 (0.27-4.20) uIU/mL Urine Color (Yellow) Urine Appearance (CLEAR) Urine pH (5-7) Ur Specific [place] (1.005-1.030) Urine Protein (Negative) Urine Glucose (UA) (Normal) Urine Ketones (Negative) Urine Blood (Negative) Urine Nitrate (Negative) Urine Bilirubin (Negative) Urine Urobilinogen (Negative) mg/dL Ur Leukocyte Esterase (Negative) Urine RBC (0-2) /hpf Urine WBC (0-5) /hpf Ur Eosinophil Smear (0-0) Ur Squamous Epith Cells (0-5) /hpf Amorphous Sediment Urine Bacteria (NONE) /hpf Hyaline Casts /lpf Urine Mucus /hpf Urine Eosinophils U Random Total Protein mg/dL Ur Random Sodium mmol/L Ur Random Potassium mmol/L Ur Random Chloride mmol/L Ur Random Urea Nitrogn mg/dL Urine Creatinine Valproic Acid 27.0 L (50-100) ug/mL Influenza Type A Ag (Negative) Influenza Type B Ag (Negative) 07/03/20 07/03/20 07/03/20 Range/Units 13:28 13:28 13:28 WBC (4.0-10.0) 10^3/uL RBC (4.1-5.3) 10^6/uL Hgb (11.5-15.3) g/dL Hct (37.0-47.0) % MCV (81-99) fL MCH (28.0-34.0) pg MCHC (30.0-36.0) g/dL RDW (12.1-15.1) % Plt Count (130-400) 10^3/cmm MPV (7.4-10.4) fL Neut % (Auto) % Lymph % (Auto) % Daggett % (Auto) % Eos % (Auto) % Baso % (Auto) % Neut # (Auto) (1.8-7.7) 10^3/uL Lymph # (Auto) (0.8-4.8) 10^3/uL Daggett # (Auto) (0.2-0.9) 10^3/uL Eos # (Auto) (0.0-0.8) 10^3/uL Baso # (Auto) (0.0-0.1) 10^3/uL Nucleated RBC % (auto) % Nucleated RBCs # /100WBC PT (12.1-14.9) SECONDS INR (0.8-1.2) Fibrinogen (174-498) mg/dL D-Dimer (0-0.59) ug/mIFEU Specimen Type Sample Site ABG pH (7.35-7.45) ABG pCO2 (35-45) mmHg ABG pO2 (80.0-100.0) mmHg ABG HCO3 (22-26) mmol/L ABG Base Excess (-2.0-2.0) mmol/L Yovany Test Hematocrit (37-47) % O2 Delivery Device FiO2 % Tidal Volume PEEP cmH20 Wireless Technician ID Sodium (136-145) mmol/L Potassium (3.5-5.1) mmol/L Chloride (98-107) mmol/L Carbon Dioxide (22-29) mmol/L Anion Gap (5-19) BUN (8-23) mg/dL Creatinine (0.5-0.9) mg/dL GFR Calculation Glucose (65-115) mg/dL Calculated Osmolality (285-295) mOsm/kg Lactic Acid (0.5-2.2) mmol/L Lactic Acid (Sepsis) (0.5-2.2) mmol/L Uric Acid (2.4-5.7) mg/dL Calcium (8.5-10.5) mg/dL Magnesium (1.7-2.3) mg/dL Total Bilirubin (0.15-1.2) mg/dL AST (0-32) U/L ALT (0-33) U/L Alkaline Phosphatase (35-105) IU/L Creatine Kinase (26-192) U/L Troponin T Baseline (0-10) ng/L Troponin T 120 Minute (0-10) ng/L Delta Troponin T (0-10) ABS# C-Reactive Protein (0.0-4.9) mg/L NT-Pro-B Natriuret Pep (0-125) pg/mL Total Protein (6.6-8.7) g/dL Albumin (3.5-5.2) g/dL Globulin (1.3-4.6) g/dL Procalcitonin (0-0.5) ng/mL TSH (0.27-4.20) uIU/mL Urine Color Yellow (Yellow) Urine Appearance Hazy A (CLEAR) Urine pH 5 (5-7) Ur Specific [place] 1.010 (1.005-1.030) Urine Protein 1+ H (Negative) Urine Glucose (UA) Norm (Normal) Urine Ketones 1+ H (Negative) Urine Blood 3+ H (Negative) Urine Nitrate Negative (Negative) Urine Bilirubin Neg (Negative) Urine Urobilinogen 1 H (Negative) mg/dL Ur Leukocyte Esterase Trace H (Negative) Urine RBC 15-25 H (0-2) /hpf Urine WBC 0-4 H (0-5) /hpf Ur Eosinophil Smear 0 (0-0) Ur Squamous Epith Cells 0-4 H (0-5) /hpf Amorphous Sediment Not Reportable Urine Bacteria Trace (NONE) /hpf Hyaline Casts /lpf Urine Mucus 2+ /hpf Urine Eosinophils No eosinophils seen U Random Total Protein 73 mg/dL Ur Random Sodium 13 mmol/L Ur Random Potassium 42 mmol/L Ur Random Chloride 18 mmol/L Ur Random Urea Nitrogn mg/dL Urine Creatinine Cancelled 138 Valproic Acid (50-100) ug/mL Influenza Type A Ag (Negative) Influenza Type B Ag (Negative) 07/03/20 07/03/20 07/03/20 Range/Units 13:28 13:28 13:31 WBC (4.0-10.0) 10^3/uL RBC (4.1-5.3) 10^6/uL Hgb (11.5-15.3) g/dL Hct (37.0-47.0) % MCV (81-99) fL MCH (28.0-34.0) pg MCHC (30.0-36.0) g/dL RDW (12.1-15.1) % Plt Count (130-400) 10^3/cmm MPV (7.4-10.4) fL Neut % (Auto) % Lymph % (Auto) % Daggett % (Auto) % Eos % (Auto) % Baso % (Auto) % Neut # (Auto) (1.8-7.7) 10^3/uL Lymph # (Auto) (0.8-4.8) 10^3/uL Daggett # (Auto) (0.2-0.9) 10^3/uL Eos # (Auto) (0.0-0.8) 10^3/uL Baso # (Auto) (0.0-0.1) 10^3/uL Nucleated RBC % (auto) % Nucleated RBCs # /100WBC PT (12.1-14.9) SECONDS INR (0.8-1.2) Fibrinogen (174-498) mg/dL D-Dimer (0-0.59) ug/mIFEU Specimen Type Arterial Sample Site Brachial, left ABG pH 7.33 L (7.35-7.45) ABG pCO2 35.7 (35-45) mmHg ABG pO2 73.3 L (80.0-100.0) mmHg ABG HCO3 18.7 L (22-26) mmol/L ABG Base Excess -6.5 L (-2.0-2.0) mmol/L Yovany Test Pos Hematocrit 40.5 (37-47) % O2 Delivery Device Vent FiO2 80.0 % Tidal Volume 0.45 PEEP 10.0 cmH20 Wireless Technician ID Cak Sodium (136-145) mmol/L Potassium (3.5-5.1) mmol/L Chloride (98-107) mmol/L Carbon Dioxide (22-29) mmol/L Anion Gap (5-19) BUN (8-23) mg/dL Creatinine (0.5-0.9) mg/dL GFR Calculation Glucose (65-115) mg/dL Calculated Osmolality (285-295) mOsm/kg Lactic Acid (0.5-2.2) mmol/L Lactic Acid (Sepsis) (0.5-2.2) mmol/L Uric Acid (2.4-5.7) mg/dL Calcium (8.5-10.5) mg/dL Magnesium (1.7-2.3) mg/dL Total Bilirubin (0.15-1.2) mg/dL AST (0-32) U/L ALT (0-33) U/L Alkaline Phosphatase (35-105) IU/L Creatine Kinase (26-192) U/L Troponin T Baseline (0-10) ng/L Troponin T 120 Minute (0-10) ng/L Delta Troponin T (0-10) ABS# C-Reactive Protein (0.0-4.9) mg/L NT-Pro-B Natriuret Pep (0-125) pg/mL Total Protein (6.6-8.7) g/dL Albumin (3.5-5.2) g/dL Globulin (1.3-4.6) g/dL Procalcitonin (0-0.5) ng/mL TSH (0.27-4.20) uIU/mL Urine Color Yellow (Yellow) Urine Appearance Sl hazy (CLEAR) Urine pH 5 (5-7) Ur Specific [place] 1.010 (1.005-1.030) Urine Protein 1+ H (Negative) Urine Glucose (UA) Norm (Normal) Urine Ketones 1+ H (Negative) Urine Blood 3+ H (Negative) Urine Nitrate Negative (Negative) Urine Bilirubin Neg (Negative) Urine Urobilinogen Norm (Negative) mg/dL Ur Leukocyte Esterase Negative (Negative) Urine RBC 50-80 H (0-2) /hpf Urine WBC 5-10 H (0-5) /hpf Ur Eosinophil Smear (0-0) Ur Squamous Epith Cells 15-25 H (0-5) /hpf Amorphous Sediment 2+ Urine Bacteria 2+ H (NONE) /hpf Hyaline Casts 0-4 H /lpf Urine Mucus /hpf Urine Eosinophils U Random Total Protein mg/dL Ur Random Sodium Cancelled mmol/L Ur Random Potassium mmol/L Ur Random Chloride mmol/L Ur Random Urea Nitrogn 908 mg/dL Urine Creatinine Valproic Acid (50-100) ug/mL Influenza Type A Ag (Negative) Influenza Type B Ag (Negative) 07/03/20 07/03/20 07/03/20 Range/Units 13:54 15:33 16:30 WBC (4.0-10.0) 10^3/uL RBC (4.1-5.3) 10^6/uL Hgb (11.5-15.3) g/dL Hct (37.0-47.0) % MCV (81-99) fL MCH (28.0-34.0) pg MCHC (30.0-36.0) g/dL RDW (12.1-15.1) % Plt Count (130-400) 10^3/cmm MPV (7.4-10.4) fL Neut % (Auto) % Lymph % (Auto) % Daggett % (Auto) % Eos % (Auto) % Baso % (Auto) % Neut # (Auto) (1.8-7.7) 10^3/uL Lymph # (Auto) (0.8-4.8) 10^3/uL Daggett # (Auto) (0.2-0.9) 10^3/uL Eos # (Auto) (0.0-0.8) 10^3/uL Baso # (Auto) (0.0-0.1) 10^3/uL Nucleated RBC % (auto) % Nucleated RBCs # /100WBC PT (12.1-14.9) SECONDS INR (0.8-1.2) Fibrinogen (174-498) mg/dL D-Dimer (0-0.59) ug/mIFEU Specimen Type Arterial Sample Site Radial, right ABG pH 7.30 L (7.35-7.45) ABG pCO2 34.1 L (35-45) mmHg ABG pO2 84.8 (80.0-100.0) mmHg ABG HCO3 16.8 L (22-26) mmol/L ABG Base Excess -8.6 L (-2.0-2.0) mmol/L Yovany Test Pos Hematocrit 37.4 (37-47) % O2 Delivery Device Vent FiO2 90.0 % Tidal Volume 0.45 PEEP 10.0 cmH20 Wireless Technician ID Cak Sodium (136-145) mmol/L Potassium (3.5-5.1) mmol/L Chloride (98-107) mmol/L Carbon Dioxide (22-29) mmol/L Anion Gap (5-19) BUN (8-23) mg/dL Creatinine (0.5-0.9) mg/dL GFR Calculation Glucose (65-115) mg/dL Calculated Osmolality (285-295) mOsm/kg Lactic Acid (0.5-2.2) mmol/L Lactic Acid (Sepsis) (0.5-2.2) mmol/L Uric Acid (2.4-5.7) mg/dL Calcium (8.5-10.5) mg/dL Magnesium (1.7-2.3) mg/dL Total Bilirubin (0.15-1.2) mg/dL AST (0-32) U/L ALT (0-33) U/L Alkaline Phosphatase (35-105) IU/L Creatine Kinase (26-192) U/L Troponin T Baseline (0-10) ng/L Troponin T 120 Minute 80.13 H (0-10) ng/L Delta Troponin T 14.13 H* (0-10) ABS# C-Reactive Protein (0.0-4.9) mg/L NT-Pro-B Natriuret Pep (0-125) pg/mL Total Protein (6.6-8.7) g/dL Albumin (3.5-5.2) g/dL Globulin (1.3-4.6) g/dL Procalcitonin (0-0.5) ng/mL TSH (0.27-4.20) uIU/mL Urine Color (Yellow) Urine Appearance (CLEAR) Urine pH (5-7) Ur Specific [place] (1.005-1.030) Urine Protein (Negative) Urine Glucose (UA) (Normal) Urine Ketones (Negative) Urine Blood (Negative) Urine Nitrate (Negative) Urine Bilirubin (Negative) Urine Urobilinogen (Negative) mg/dL Ur Leukocyte Esterase (Negative) Urine RBC (0-2) /hpf Urine WBC (0-5) /hpf Ur Eosinophil Smear (0-0) Ur Squamous Epith Cells (0-5) /hpf Amorphous Sediment Urine Bacteria (NONE) /hpf Hyaline Casts /lpf Urine Mucus /hpf Urine Eosinophils U Random Total Protein mg/dL Ur Random Sodium mmol/L Ur Random Potassium mmol/L Ur Random Chloride mmol/L Ur Random Urea Nitrogn mg/dL Urine Creatinine Valproic Acid (50-100) ug/mL Influenza Type A Ag Negative (Negative) Influenza Type B Ag Negative (Negative) 07/03/20 07/03/20 Range/Units 16:30 16:30 WBC (4.0-10.0) 10^3/uL RBC (4.1-5.3) 10^6/uL Hgb (11.5-15.3) g/dL Hct (37.0-47.0) % MCV (81-99) fL MCH (28.0-34.0) pg MCHC (30.0-36.0) g/dL RDW (12.1-15.1) % Plt Count (130-400) 10^3/cmm MPV (7.4-10.4) fL Neut % (Auto) % Lymph % (Auto) % [place] % (Auto) % Eos % (Auto) % Baso % (Auto) % Neut # (Auto) (1.8-7.7) 10^3/uL Lymph # (Auto) (0.8-4.8) 10^3/uL [place] # (Auto) (0.2-0.9) 10^3/uL Eos # (Auto) (0.0-0.8) 10^3/uL Baso # (Auto) (0.0-0.1) 10^3/uL Nucleated RBC % (auto) % Nucleated RBCs # /100WBC PT (12.1-14.9) SECONDS INR (0.8-1.2) Fibrinogen (174-498) mg/dL D-Dimer (0-0.59) ug/mIFEU Specimen Type Sample Site ABG pH (7.35-7.45) ABG pCO2 (35-45) mmHg ABG pO2 (80.0-100.0) mmHg ABG HCO3 (22-26) mmol/L ABG Base Excess (-2.0-2.0) mmol/L Yovany Test Hematocrit (37-47) % O2 Delivery Device FiO2 % Tidal Volume PEEP cmH20 Wireless Technician ID Sodium 161 H* (136-145) mmol/L Potassium (3.5-5.1) mmol/L Chloride (98-107) mmol/L Carbon Dioxide (22-29) mmol/L Anion Gap (5-19) BUN (8-23) mg/dL Creatinine (0.5-0.9) mg/dL GFR Calculation Glucose (65-115) mg/dL Calculated Osmolality (285-295) mOsm/kg Lactic Acid (0.5-2.2) mmol/L Lactic Acid (Sepsis) 4.7 H* (0.5-2.2) mmol/L Uric Acid (2.4-5.7) mg/dL Calcium (8.5-10.5) mg/dL Magnesium (1.7-2.3) mg/dL Total Bilirubin (0.15-1.2) mg/dL AST (0-32) U/L ALT (0-33) U/L Alkaline Phosphatase (35-105) IU/L Creatine Kinase (26-192) U/L Troponin T Baseline (0-10) ng/L Troponin T 120 Minute (0-10) ng/L Delta Troponin T (0-10) ABS# C-Reactive Protein (0.0-4.9) mg/L NT-Pro-B Natriuret Pep (0-125) pg/mL Total Protein (6.6-8.7) g/dL Albumin (3.5-5.2) g/dL Globulin (1.3-4.6) g/dL Procalcitonin (0-0.5) ng/mL TSH (0.27-4.20) uIU/mL Urine Color (Yellow) Urine Appearance (CLEAR) Urine pH (5-7) Ur Specific [place] (1.005-1.030) Urine Protein (Negative) Urine Glucose (UA) (Normal) Urine Ketones (Negative) Urine Blood (Negative) Urine Nitrate (Negative) Urine Bilirubin (Negative) Urine Urobilinogen (Negative) mg/dL Ur Leukocyte Esterase (Negative) Urine RBC (0-2) /hpf Urine WBC (0-5) /hpf Ur Eosinophil Smear (0-0) Ur Squamous Epith Cells (0-5) /hpf Amorphous Sediment Urine Bacteria (NONE) /hpf Hyaline Casts /lpf Urine Mucus /hpf Urine Eosinophils U Random Total Protein mg/dL Ur Random Sodium mmol/L Ur Random Potassium mmol/L Ur Random Chloride mmol/L Ur Random Urea Nitrogn mg/dL Urine Creatinine Valproic Acid (50-100) ug/mL Influenza Type A Ag (Negative) Influenza Type B Ag (Negative) COVID Results: No Data to Display Discharge Plan Discharge Patient Disposition: Admitted As Inpatient Admit Provider: Kaitlynn Valadez Clinical Impression: Pneumonia due to 2019 novel coronavirus, Acute hyponatremia, Acute renal insufficiency Condition: Stable Coding Level of Care Code ED Energy Sales Consultant for Jodig Fwd Exam Comprehensive
[2020-07-03] MEDS: dexamethasone 4 mg/mL INJ 6 MG IVP (14:02)
--- NOTE | 2020-07-03 14:06 | PC.NURSE ---
Reastraints removed and ROM done for pt. Radial pulses strong bilaterally. Placed back in restraints for safety. Pt resting comfortably at this time.
[2020-07-03 14:18] LABS: D Dimer 15.65 ug/mIFEU (0-0.59)
[2020-07-03 14:27] LABS: Lactic Sepsis W/Reflex 4.8 mmol/L (0.5-2.2)
[2020-07-03 14:29] LABS: Influenza A by IFA Negative (Negative); Influenza B by IFA Negative (Negative)
[2020-07-03] MEDS: heparin 5,000 unit/mL INJ 1 mL 5000 UNIT SUBCUT (14:53)
[2020-07-03 15:08] LABS: Alanine Aminotransferase 11 U/L (0-33); Albumin Level 3.7 g/dL (3.5-5.2); Alkaline Phosphatase 75 IU/L (35-105); Anion Gap 24.4 (5-19); Aspartate Amino Transferase 33 U/L (0-32); Blood Urea Nitrogen 55 mg/dL (8-23); C Reactive Protein 86.5 mg/L (0.0-4.9); Calcium 9.4 mg/dL (8.5-10.5); Carbon Dioxide 19 mmol/L (22-29); Chloride 123 mmol/L (98-107); Globulin 3.4 g/dL (1.3-4.6); Glucose 152 mg/dL (65-115); NT Pro B Type Natriuretic Pept 2062 pg/mL (0-125); Osmolality Calculated 352 mOsm/kg (285-295); Potassium 4.4 mmol/L (3.5-5.1); Total Bilirubin 0.3 mg/dL (0.15-1.2); Total Protein 7.1 g/dL (6.6-8.7)
[2020-07-03 15:14] LABS: Reflex Lactate Order REFLEX LACTIC ORDERD
[2020-07-03 15:19] LABS: Sodium 162 mmol/L (136-145)
[2020-07-03 15:22] LABS: Magnesium 2.5 mg/dL (1.7-2.3)
[2020-07-03 15:27] LABS: Add Urine Microscopic? YES; Bilirubin Urine Neg (Negative); Blood Urine 3+ (Negative); Glucose Urine UA Norm (Normal); Ketones Urine 1+ (Negative); Leukocyte Esterase Urine Trace (Negative); Nitrate Urine Negative (Negative); Protein Urine 1+ (Negative); Urine Appearance Hazy (CLEAR); Urine Color Yellow (Yellow); Urobilinogen Urine 1 mg/dL (Negative); pH Urine 5 (5-7)
[2020-07-03 15:40] LABS: Mucus Urine 2+ /hpf; RBC Urine 15-25 /hpf (0-2); Squamous Epithelial Cell Urine 0-4 /hpf (0-5); WBC Urine 0-4 /hpf (0-5)
[2020-07-03 15:41] LABS: Add Urine Culture? Yes; Bacteria Urine TRACE /hpf
[2020-07-03 15:44] LABS: Blood Gas Allen Test Pos; Blood Gas Operator Identificat CAK; Blood Gas Sample Type Arterial
[2020-07-03 16:05] LABS: ABG PCO2 34.1 mmHg (35-45); Arterial Blood Gas Hematocrit 37.4 % (37-47); Base Excess ABG -8.6 mmol/L (-2.0-2.0); Blood Gas Sample Site Radial, right; Blood Gas Tidal Volume 0.45; HCO3 ABG 16.8 mmol/L (22-26); Oxygen Device VENT; PO2 ABG 84.8 mmHg (80.0-100.0)
--- NOTE | 2020-07-03 16:21 | PM.HP ---
Providers/Chief Complaint Chief Complaint: RESP DISTRESS; COVID + History of Present Illness This is a 75-year-old female with a past medical history of TIA, frequent UTIs, COPD, hypertension, type 2 diabetes mellitus, GERD, chronic back pain, depression and anxiety, possible CVA requiring transfer to [place] on June 14, 2019 who presents to [facility] due to complaints of confusion, hypoxia, shortness of breath, cough, fevers, fatigue, malaise. Patient tested positive at [facility], 3 weeks ago from COVID-19, she was on 5 L at 1 point, she would have intermittent shortness of breath, fatigue, malaise, poor appetite. Yesterday according to nursing staff patient did not look well, received a liter bolus, look better. This morning patient had increased shortness of breath, increased confusion, was not responding appropriately, desat to the low 80s on 15 L, complaints of shortness of breath. According to group home, patient has had a slow decline over the last few months, her mentation has slowly declined, appetite has slowly declined, she is less mobile, she has become less functional. Over the last 3 weeks, she is has had a significant decline in her functioning, she has not been eating well, less mobile, not responding appropriate, more confused. Down to the emergency room, patient was found to have decreased mental status, decreased respiratory rate, so she was intubated by the ER physician. Patient was examined in the ER, she is intubated, sedated, awaiting central line placement, she has mottling of her bilateral lower extremities, urine output is minimal at 150 cc. Review of Systems General: Reports: ROS unobtainable due to endotracheal tube and ROS unobtainable due to medical condition Medications/Allergies Home Medications Medication Instructions Recorded Confirmed Last Taken Type T-Gel Shampoo See Rx Instructions .ROUTE .COMPLEX 01/15/20 07/03/20 07/02/20 History amlodipine [Norvasc] 5 mg PO DAILY 01/15/20 07/03/20 07/03/20 History aspirin [Aspir-81] 81 mg PO DAILY 01/15/20 07/03/20 07/03/20 History atorvastatin 20 mg PO DAILY 01/15/20 07/03/20 07/02/20 History benztropine 1 mg PO DAILY 01/15/20 07/03/2007/03/20 History bisacodyl 10 mg SD DAILY PRN 01/15/20 07/03/20 06/28/20 History cyanocobalamin (vitamin B-12) 1,000 mcg PO DAILY 01/15/20 07/03/20 07/03/20 History divalproex 250 mg PO BID 01/15/20 07/03/20 07/03/20 History docusate sodium [Colace] 100 mg PO BID PRN 01/15/20 07/03/20 07/03/20 History fluticasone propion-salmeterol 1 inh INHALATION BID 01/15/20 07/03/20 07/03/20 History [Advair Diskus] fluticasone propionate [Flonase 2 spray INTRANASAL DAILY 01/15/20 07/03/20 07/03/20 History Allergy Relief] folic acid 1 mg PO DAILY 01/15/20 07/03/20 07/03/20 History memantine 5 mg PO BID 01/15/20 07/03/20 07/03/20 History metformin 500 mg PO DAILY 01/15/20 07/03/20 07/03/20 History metoprolol tartrate 25 mg PO DAILY 01/15/20 07/03/20 07/03/20 History mirtazapine 15 mg PO DAILY 01/15/20 07/03/20 07/02/20 History montelukast [Singulair] 10 mg PO DAILY 01/15/20 07/03/20 07/02/20 History omeprazole 20 mg PO DAILY 01/15/20 07/03/20 07/03/20 History sennosides-docusate sodium 1 tab-cap PO BID PRN 01/15/20 07/03/20 06/29/20 History [Senna-S] venlafaxine 100 mg PO BID 01/15/20 07/03/20 07/03/20 History ascorbic acid (vitamin C) [Vitamin 1 tab PO DAILY 07/03/20 07/03/20 07/03/20 History C] azithromycin 250 mg PO DAILY 07/03/20 07/03/20 07/03/20 History cholecalciferol (vitamin D3) 125 mcg PO DAILY 07/03/20 07/03/20 07/03/20 History [Vitamin D3] dexamethasone 6 mg PO DAILY 07/03/20 07/03/20 07/03/20 History zinc 100 mg PO DAILY 07/03/20 07/03/20 07/03/20 History Allergies Allergy/AdvReac Type Severity Reaction Status Date / Time cephalexin Allergy Unknown Verified 01/15/20 14:36 enoxaparin [From Lovenox] Allergy Unknown Verified 01/15/20 14:36 Penicillins Allergy Unknown Verified 01/15/20 14:36 Sulfa (Sulfonamide Allergy Unknown Verified 01/15/20 14:36 Antibiotics) sulfamethoxazole Allergy Unknown Verified 01/15/20 14:36 [From Bactrim] trimethoprim Allergy Unknown Verified 01/15/20 14:36 PFSH Acute PFSH: Social History Smoking and tobacco status: unknown if ever smoked Vitals/I&O/Wt Last Vital Signs Temp 101.1 F H 07/03/20 14:08 Pulse 96 07/03/20 15:14 Resp 18 07/03/20 15:29 BP 81/53 07/03/20 15:14 Pulse Ox 90 07/03/20 15:14 07/03/20 07/03/20 07/03/20 06:59 14:59 22:59 Intake Total 100 / 100 Balance 100 / 100 Weight last 48 hrs Weight 61.235 kg Physical Exam Narrative: EXAM NARRATIVE: Intubated sedated Const: COMMON NORMALS: no acute distress HENMT: COMMON NORMALS: normocephalic HEAD & SCALP: normocephalic Eye: COMMON NORMALS: Equal, round and reactive pupils present GENERAL EYE: appearance normal, both eyes and all related structures PUPIL: Yes Equal, round and reactive pupils present DIRECT OPHTHALMOSCOPY: Yes no papilledema Neck/C-Spine: COMMON NORMALS: full ROM, no lymphadenopathy, no JVD and Thyroid normal THYROID: Thyroid normal Lymph: LYMPHATIC: no lymphadenopathy noted Resp: COMMON NORMALS: normal respiratory effort, No retractions, No use of accessory muscles and clear to auscultation bilaterally AUSCULTATION: crackles and wheezes Cardio: COMMON NORMALS: no JVD, regular rate, regular rhythm, S1 normal heart sound present, S2 normal heart sound present, No gallops present (Cardio), No clicks present (Cardio) and No murmurs present (Cardio) RATE: regular rate RHYTHM: regular rhythm HEART SOUNDS: S1 normal heart sound present and S2 normal heart sound present GI: COMMON NORMALS: Normal to inspection, nondistended, normoactive bowel sounds present, Soft to palpation, non-tender and No hepatosplenomegaly present PALPATION: Yes Soft to palpation and Yes No hepatosplenomegaly present Extremity: COMMON NORMALS: normal to inspection, full ROM and no pedal edema Neuro: OTHER: Intubated, sedated Urinary Catheter Management^: Kowalski: Cath Placed During This Visit: yes Reason for Continuing Indwelling Catheter: Accurate Measurement of Urinary Output in Critically Ill Patients Urinary Catheter Date of Insertion: 07/03/20 Urinary Catheter Time of Insertion: 13:27 Sepsis: Is patient septic: Yes Focused sepsis exam performed: Yes Date exam was performed: 07/03/20 Time exam was performed: 16:30 Data : 07/03/20 13:07 07/03/20 13:07 Micro: Microbiology 07/03/20 14:50 Gram Stain - Final Sputum - Endotracheal Tube Aspirate A&P Assessment and plan (1) Acute respiratory failure with hypoxia: -Secondary to COVID-19 pneumonia, secondary bacterial infection, UTI -Evidence of multiorgan failure -Evidence of septic shock PLAN: -Admit to viral ICU -Patient is a full code -Therapeutic Lovenox for DVT prophylaxis -Patient's DPOA is Sukh Andrade counts [phone], I have already updated on patient's status -Prognosis is guarded, status is critical -On the ventilator, minimize PEEP, minimize FiO2 -Fentanyl and propofol for sedation -Decadron day 1 -Remdesivir day 1 -Broad-spectrum antibiotics vancomycin, Primaxin, azithromycin -Start tube feeds, Jevity, low-dose sliding scale, maintain blood sugars between 180-225 -D5 water hydration for hypovolemic hyponatremia -Start Levophed, maintain MAP greater than 65 -Therapeutic Lovenox, for concerns for hypercoagulability associate with COVID-19, high D-dimer, cannot do CT angiogram given creatinine -For now I will hold off on Lasix therapy, given TODD, concerns for dehydration -Follow urine cultures, blood cultures, respiratory cultures, urine bacterial antigens -Follow serial inflammatory markers -Daily EKGs to monitor QTC -We will consider consulting pulmonary service Status: Acute (2) Pneumonia due to 2019 novel coronavirus: Status: Acute (3) Acute renal insufficiency: -Acute kidney injury, secondary to sepsis, secondary to dehydration, creatinine 1.8, BUN 55 -D5 water at 100 cc an hour, monitor urine output, monitor creatinine Status: Acute (4) Secondary bacterial pneumonia: Status: Acute (5) Septic shock: Status: Acute (6) Lactic acidosis: Status: Acute (7) NSTEMI (non-ST elevated myocardial infarction): -Likely supply demand ischemia from acute respiratory failure, septic shock, lactic acidosis -Continue aspirin 81 mg, atorvastatin 40 mg -We will order cardiac echocardiogram -Serial EKGs, serial troponins, telemetry monitoring Status: Acute (8) UTI (urinary tract infection): Primaxin as above, CT abdomen pelvis to rule out obstructive uropathy, follow urine culture Status: Acute (9) Dehydration with hypernatremia: -Hypovolemic hypernatremia -D5 water at 100 cc an hour Status: Acute (10) Transaminitis: Status: Acute (11) Type 2 diabetes mellitus: A1c, moderate dose sliding scale Status: Acute Attestations Medical Necessity Statement*: Patient requires hospitalization, inpatient, greater than 2 midnights, for acute hypoxic respiratory failure, COVID-19 pneumonia, secondary bacterial pneumonia, multiorgan failure, acute kidney injury, hypernatremia, dehydration Coding Level of Care Code Acute Traffic Operations Manager for Chg Fwd Exam Comprehensive Diagnoses Acute respiratory failure with hypoxia J96.01 Pneumonia due to 2019 novel coronavirus U07.1; J12.89 Acute renal insufficiency N28.9 Secondary bacterial pneumonia J15.9 Septic shock A41.9; R65.21 Lactic acidosis E87.2 NSTEMI (non-ST elevated myocardial infarction) I21.4 UTI (urinary tract infection) N39.0 Dehydration with hypernatremia E87.0 Transaminitis R74.01 Type 2 diabetes mellitus E11.9 Sepsis Event Note Evaluation Current stage of sepsis: severe sepsis Initial hypotension due to sepsis/infection: SBP < 90 mmHg Possible source: pulmonary and genitourinary Focused Exam Vital Signs Temp Pulse Pulse Resp BP BP Pulse Ox 07/03/20 16:35 88 27 H 108/58 95 07/03/20 15:29 18 07/03/20 15:14 96 24 H 81/53 90 07/03/20 14:41 24 H 07/03/20 14:37 96 07/03/20 14:36 91 24 H 91/58 07/03/20 14:08 101.1 F H 100 25 H 87/66 94 07/03/20 14:01 100 22 H 90/59 93 07/03/20 13:53 100 20 H 82/57 93 07/03/20 13:45 111 H 23 H 89/53 92 07/03/20 13:33 110 H 20 H 79/59 96 07/03/20 13:30 120 H 20 H 92/71 96 07/03/20 13:28 120 H 20 H 92/71 96 07/03/20 13:24 25 H 07/03/20 13:22 109 H 20 H 87/69 95 07/03/20 13:13 106 H 14 108/76 92 07/03/20 13:09 100.6 F H 135 H 54 H 104/79 81 L 07/03/20 13:08 100.6 F H 135 H 54 H 104/79 81 L Capillary refill: > 3 Seconds Peripheral pulse strength: 1+ Faint Peripheral pulse location: Pedal Skin exam: pale and mottling Date exam was performed: 07/03/20 Time exam was performed: 16:58 Problem List (1) Acute respiratory failure with hypoxia: Status: Acute (2) Pneumonia due to 2019 novel coronavirus: Status: Acute (3) Acute renal insufficiency: Status: Acute (4) Secondary bacterial pneumonia: Status: Acute (5) Septic shock: Status: Acute (6) Lactic acidosis: Status: Acute (7) NSTEMI (non-ST elevated myocardial infarction): Status: Acute (8) UTI (urinary tract infection): Status: Acute (9) Dehydration with hypernatremia: Status: Acute (10) Transaminitis: Status: Acute (11) Type 2 diabetes mellitus: Status: Acute
--- NOTE | 2020-07-03 16:29 | CTR_ITS ---
PROCEDURE INFORMATION: Exam: CT Chest Without Contrast Exam date and time: 07/03/2020 4:45 PM Age: 75 years old Clinical indication: Other: Covid +; Other: Resp distress; Additional info: R/O obstructive uropathy TECHNIQUE: Imaging protocol: Computed tomography of the chest without contrast. Radiation optimization: All CT scans at this facility use at least one of these dose optimization techniques: automated exposure control; mA and/or kV adjustment per patient size (includes targeted exams where dose is matched to clinical indication); or iterative reconstruction. COMPARISON: 1. CR XR hip BI m 5V wo/w pel* [id number] 01/15/2020 4:11 PM 2. CR - (CHEST, ) 07/03/2020 5:18:09 PM RADIATION DOSE METRICS: Total DLP (mGy-cm): 1378.13 FINDINGS: Tubes, catheters and devices: Endotracheal tube is in place with its tip approximately 2 cm above the thomas. There is a catheter entering the left subclavian artery with its tip in the ascending thoracic aorta. Lungs: There is also some dependent density in the upper lobes along the fissures. Some small areas of ground-glass opacity in the periphery of the lower lobes and upper lobes could represent some infectious or inflammatory disease. These findings are indeterminate for COVID-19 infection. There are changes of pulmonary emphysema in both lungs. Pleural space: Unremarkable. No pneumothorax. No pleural effusion. Heart: Unremarkable. No cardiomegaly. No pericardial effusion. 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 There is dependent atelectasis and pneumonia at the posterior lung bases. Aorta: Unremarkable. No aortic aneurysm. Lymph nodes: Unremarkable. No enlarged lymph nodes. Bones/joints: Unremarkable. No acute fracture. Soft tissues: Unremarkable. IMPRESSION: 1. The catheter entering along the left side of the neck is intra arterial in position with its tip in the ascending thoracic aorta. 2. 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 3. Small bilateral pleural effusions. 4. Bilateral lower lobe atelectasis and pneumonia. 5. Minimal peripheral pulmonary infiltrates which are nonspecific and could represent some infectious or inflammatory disease including COVID-19. PROCEDURE INFORMATION: Exam: CT Abdomen And Pelvis Without Contrast Exam date and time: 07/03/2020 4:45 PM Age: 75 years old Clinical indication: Other: Covid +; Other: Resp distress; Additional info: R/O obstructive uropathy TECHNIQUE: Imaging protocol: Computed tomography of the abdomen and pelvis without contrast. Radiation optimization: All CT scans at this facility use at least one of these dose optimization techniques: automated exposure control; mA and/or kV adjustment per patient size (includes targeted exams where dose is matched to clinical indication); or iterative reconstruction. COMPARISON: CR XR hip BI m 5V wo/w pel* [id number] 01/15/2020 4:11 PM RADIATION DOSE METRICS: Total DLP (mGy-cm): 1378.13 FINDINGS: Limitations: The absence of intravenous contrast lessens the sensitivity of this study for solid organ abnormalities. Liver: There is no focal abnormality within the liver. Gallbladder and bile ducts: There has been a cholecystectomy. Pancreas: The pancreas is normal. Spleen: The spleen is normal. Adrenal glands: The adrenal glands are normal. Kidneys and ureters: There are multiple left renal collecting system calcifications. There is a 2 mm stone in the proximal left ureter. This measures approximately 400 Hounsfield units and is not definitely seen on the equipment oiler image. There is no evidence of hydronephrosis. There is no stone in the right ureter. Stomach and bowel: There is no evidence of intestinal obstruction. There is no evidence of colitis/diverticulitis. Appendix: Not identified. Intraperitoneal space: There is no evidence of free intraperitoneal fluid. Vasculature: The aorta demonstrates severe atherosclerotic calcification and ectasia. There is ectasia of the distal abdominal aorta with maximum diameter of 2.7 cm. Lymph nodes: Unremarkable. No enlarged lymph nodes. Urinary bladder: Drained by Kowalski catheter. Reproductive: There has been a hysterectomy. Bones/joints: There is compression fracture of the superior endplate of L3 which appears to be chronic. Correlation with the clinical findings is suggested.. Soft tissues: Unremarkable. CT/CT chest abd pel wo con IMPRESSION: 1. Left nephrolithiasis 2. Small stone in the proximal left ureter. 3. L3 compression fracture probably chronic. Correlate with clinical findings Radiation Dose CTDIVOL = (mGy): DLP = 1378.13~1378.13 (mGy-cm)
[2020-07-03] MEDS: midazolam 1 mg/mL INJ 2 mL 2 MG (16:44)
--- NOTE | 2020-07-03 17:18 | XRR_ITS ---
PROCEDURE INFORMATION: Exam: XR Chest, 1 View Exam date and time: 07/03/2020 5:19 PM Age: 75 years old Clinical indication: Device placement; Other: Central line; Additional info: Central line placement TECHNIQUE: Imaging protocol: XR of the chest Views: 1 view. COMPARISON: CR XR chest 1V portable [id number] 07/03/2020 1:12 PM FINDINGS: Tubes, catheters and devices: There is an endotracheal tube in place with its tip approximately 1.5 cm above the thomas. There is a new catheter in place on the left side of the neck, the tip is overlying the mid mediastinum and it is difficult to tell from this examination where there it is an arterial or venous catheter. Additional radiography is suggested. Lungs: There are changes of COPD in both lungs and interstitial fibrosis in both lungs not significantly changed. There is mild basilar atelectasis. Pleural space: No pneumothorax is identified. Heart/Mediastinum: Unremarkable. No cardiomegaly. Bones/joints: Unremarkable. XR/XR chest 1V portable [id number] IMPRESSION: 1. New catheter identified. It is uncertain this is an arterial or venous catheter. 2. No pneumothorax.
[2020-07-03 17:25] LABS: Troponin 5 2HR 80.13 ng/L (0-10)
--- NOTE | 2020-07-03 17:49 | PM.CONSULT ---
Providers/Reason For Consult Consulting Physican/Specialty*: Nephrology Reason for Consult*: TODD History of Present Illness History of Present Illness Thank you for consultation. Today I had the pleasure of reviewing this unfortunate 75-year-old female for evaluation of acute renal failure. She presents to our facility with a known COVID-19 positive test 3 weeks ago. She apparently presented with intermittent shortness of breath, fatigue, malaise, poor appetite, progressive confusion, progressively altered mental status. Essentially she developed hypoxic respiratory failure in the emergency room and required intubation mechanical ventilation. She is now critically sick. She has been profoundly hypotensive since hospitalization and has now been started on Levophed at 4 mics per minute. She is received 2 L of normal saline bolus as well. There is slight improvement in her blood pressure, last measured 85/56. Creatinine is elevated at 1.8. Kowalski catheter was placed in the 150 cc of urine has been produced over the last 4-5 hours. No known pre-existing kidney disease: Back in December of this year creatinine was 0.7. Other germane labs include an elevated serum sodium 162, giving us a free water deficit of 5.7 L. Her bicarb is drifting down to 19, she hasn't elevated lactic acid of 5, last blood gas demonstrated pH 7.3, PCO2 down to 34 and bicarb of 16.8. Otherwise she has a known past medical history of CVA, TIA, frequent UTI, COPD, hypertension, type 2 diabetes, GERD, chronic back pain, depression and anxiety. Meds/Allergies Home Medications and Allergies Home Medications Medication Instructions Recorded Confirmed Last Taken Type T-Gel Shampoo See Rx Instructions .ROUTE .COMPLEX 01/15/20 07/03/20 07/02/20 History amlodipine [Norvasc] 5 mg PO DAILY 01/15/20 07/03/20 07/03/20 History aspirin [Aspir-81] 81 mg PO DAILY 01/15/20 07/03/20 07/03/20 History atorvastatin 20 mg PO DAILY 01/15/20 07/03/20 07/02/20 History benztropine 1 mg PO DAILY 01/15/20 07/03/20 07/03/20 History bisacodyl 10 mg MA DAILY PRN 01/15/20 07/03/20 06/28/20 History cyanocobalamin (vitamin B-12) 1,000 mcg PO DAILY 01/15/20 07/03/20 07/03/20 History divalproex 250 mg PO BID 01/15/20 07/03/20 07/03/20 History docusate sodium [Colace] 100 mg PO BID PRN 01/15/20 07/03/20 07/03/20 History fluticasone propion-salmeterol 1 inh INHALATION BID 01/15/20 07/03/20 07/03/20 History [Advair Diskus] fluticasone propionate [Flonase 2 spray INTRANASAL DAILY 01/15/20 07/03/20 07/03/20 History Allergy Relief] folic acid 1 mg PO DAILY 01/15/20 07/03/20 07/03/20 History memantine 5 mg PO BID 01/15/20 07/03/20 07/03/20 History metformin 500 mg PO DAILY 01/15/20 07/03/20 07/03/20 History metoprolol tartrate 25 mg PO DAILY 01/15/20 07/03/20 07/03/20 History mirtazapine 15 mg PO DAILY 01/15/20 07/03/20 07/02/20 History montelukast [Singulair] 10 mg PO DAILY 01/15/20 07/03/20 07/02/20 History omeprazole 20 mg PO DAILY 01/15/20 07/03/20 07/03/20 History sennosides-docusate sodium 1 tab-cap PO BID PRN 01/15/20 07/03/20 06/29/20 History [Senna-S] venlafaxine 100 mg PO BID 01/15/20 07/03/20 07/03/20 History ascorbic acid (vitamin C) [Vitamin 1 tab PO DAILY 07/03/20 07/03/20 07/03/20 History C] azithromycin 250 mg PO DAILY 07/03/20 07/03/20 07/03/20 History cholecalciferol (vitamin D3) 125 mcg PO DAILY 07/03/20 07/03/20 07/03/20 History [Vitamin D3] dexamethasone 6 mg PO DAILY 07/03/20 07/03/20 07/03/20 History zinc 100 mg PO DAILY 07/03/20 07/03/20 07/03/20 History Allergies Allergy/AdvReac Type Severity Reaction Status Date / Time cephalexin Allergy Unknown Verified 01/15/20 14:36 enoxaparin [From Lovenox] Allergy Unknown Verified 01/15/20 14:36 Penicillins Allergy Unknown Verified 01/15/20 14:36 Sulfa (Sulfonamide Allergy Unknown Verified 01/15/20 14:36 Antibiotics) sulfamethoxazole Allergy Unknown Verified 01/15/20 14:36 [From Bactrim] trimethoprim Allergy Unknown Verified 01/15/20 14:36 Current Medications Current Medications Generic Name Dose Route Start Last Admin Trade Name Freq PRN Reason Stop Dose Admin Fentanyl 1,000 mcg/ Sodium 100 mls @ 0 mls/hr 07/03/20 13:15 07/03/20 16:40 Chloride IV 50 mcg/hr .Q0M TAJ 5 mls/hr Titration Protocol Per Protocol Norepinephrine Bitartrate 4 mg 254 mls @ 0 mls/hr 07/03/20 16:55 07/03/20 17:15 / Dextrose IV 4 mcg/min .Q0M TAJ 15.2 mls/hr Administration Protocol Per Protocol PFSH Acute PFSH: Social History Smoking and tobacco status: unknown if ever smoked Vitals/I&O/Wt Last Vital Signs Temp 101.1 F H 07/03/20 14:08 Pulse 88 07/03/20 16:35 Resp 27 H 07/03/20 16:35 BP 108/58 07/03/20 16:35 Pulse Ox 95 07/03/20 16:35 07/03/20 07/03/20 07/03/20 06:59 14:59 22:59 Intake Total 100 / 100 1108.375 / 1208.375 Balance 100 / 100 1108.375 / 1208.375 Weight last 48 hrs Weight 61.235 kg Physical Exam Narrative: EXAM NARRATIVE: Per RN Patient intubated and vented Rales in bases of lungs Belly soft, BS Ext without edema Grossly non focal but sedated on the vent Urinary Catheter Management^: Kowalski: Cath Placed During This Visit: yes Reason for Continuing Indwelling Catheter: Accurate Measurement of Urinary Output in Critically Ill Patients Urinary Catheter Date of Insertion: 07/03/20 Urinary Catheter Time of Insertion: 13:27 Data Micro: Micro: Microbiology 07/03/20 14:50 Gram Stain - Final Sputum - Endotrac heal Tube Aspirate A&P Additional A&P Information 1. Oligoanuric renal failure. Likely to have profound prerenal azotemia, also a high risk of developing ATN both from renal hypoperfusion and sepsis. At this time we are giving her volume i.e. she does not require ultrafiltration. She does have a metabolic acidosis with partial respiratory compensation, if the acidosis gets progressively worse, this may require dialysis. Otherwise chemistry looks noncritical. In the next 24-48 hours we'll get renal sonogram, more for completion as I do not suspect anatomical injury to cause renal failure We'll repeat urine microscopy, fractional excretion of sodium and urea We'll get CPK, TSH, uric acid for completion Continue pressors to maintain MAP greater than 65 Continue IV hydration for the time being Avoid usual nephrotoxic agents Strict ins and outs 2. Hypernatremia Free water deficit 5.7 L We'll give half-normal saline at 100 cc/h Every 12 BMP 3. Vent dependent respiratory failure Secondary to Covid, possible superimposed pneumonia On combination antibiotics including vancomycin, Primaxin, azithromycin Dexamethasone Remdesivir Vent management per ICU team I would like to thank Dr. Chandler for this consultation, as always it is a pleasure for myself and the [facility] Renal Telemed team to follow these cases with you. Interview performed via telemedicine with the aid of the bedside nurse. Albert Hitchcock MD [phone] Consult Attestations Medical Necessity Statement: eval for renal failure Coding Level of Care Code Acute Hot Air Furnace Installer And Repairer for Michael Catalan
[2020-07-03 17:53] LABS: Lactic Acid level (Lactate) 4.7 mmol/L (0.5-2.2); Sodium 161 mmol/L (136-145); Troponin 5 2HR Delta 14.13 ABS# (0-10)
--- NOTE | 2020-07-03 18:07 | CTR_ITS ---
PROCEDURE INFORMATION: Exam: CT Neck Without Contrast Exam date and time: 07/03/2020 6:10 PM Age: 75 years old Clinical indication: Device placement; Central line; Additional info: Possible arterial central line TECHNIQUE: Imaging protocol: Computed tomography images of the neck without contrast. Radiation optimization: All CT scans at this facility use at least one of these dose optimization techniques: automated exposure control; mA and/or kV adjustment per patient size (includes targeted exams where dose is matched to clinical indication); or iterative reconstruction. COMPARISON: CTA Head/Neck [id number] 06/14/2019 2:07 AM RADIATION DOSE METRICS: Total DLP (mGy-cm): 449.72 FINDINGS: Nasopharynx: Unremarkable. Oropharynx: Unremarkable. No significant tonsillar enlargement. Hypopharynx: Unremarkable. Larynx: Unremarkable. Normal epiglottis. Retropharyngeal space: Unremarkable. Submandibular/Parotid glands: Normal. Glands are normal in size. Thyroid: Normal. No enlarged or calcified nodules. Lymph nodes: Unremarkable. No lymphadenopathy. Trachea: Endotracheal tube is in place. Lungs: Unremarkable as visualized. Bones/joints: Unremarkable. No acute fracture. Vasculature: There is a left sided central line in intra arterial position. This is described also on the preceding CT scan of the chest, the tip is in the ascending thoracic aorta as seen on that examination. There is atherosclerotic calcification in the carotid arteries on both sides. Soft tissues: Unremarkable. No significant soft tissue swelling. CT/CT neck wo con [id number] IMPRESSION: 1. Intra-arterial position of catheter. 2. Otherwise no acute finding in the neck Radiation Dose CTDIVOL = (mGy): DLP = 449.72 (mGy-cm)
[2020-07-03] MEDS: sodium chloride 0.45% 1,000 ML 100 ML IV (18:18)
[2020-07-03] MEDS: azithromycin 500 MG in sodium chloride 0.9% 250 ML 250 MG IV (18:19)
[2020-07-03 19:00] LABS: Bilirubin Urine Neg (Negative); Blood Urine 3+ (Negative); Glucose Urine UA Norm (Normal); Ketones Urine 1+ (Negative); Leukocyte Esterase Urine Negative (Negative); Nitrate Urine Negative (Negative); Protein Urine 1+ (Negative); Urine Appearance SL Hazy (CLEAR); Urine Color Yellow (Yellow); Urobilinogen Urine Norm (Negative); pH Urine 5 (5-7)
[2020-07-03 19:02] LABS: Add Urine Culture? No; Amorphous Sediment Urine 2+ /hpf; Bacteria Urine 2+ /hpf; Hyaline Casts Urine 0-4 /lpf; RBC Urine 50-80 /hpf (0-2); Squamous Epithelial Cell Urine 15-25 /hpf (0-5)
[2020-07-03 19:17] LABS: Potassium, Radom Urine 42 mmol/L; Urine Creatinine 138 mg/dL (28-217)
--- NOTE | 2020-07-03 19:27 | ECG_ITS ---
[facility] ED Test Date: 2020-07-03 Pat Name: Naida Yap Department: Room: ICU19 Gender: Female Child Care Nurse: : 1945 Requested By: Norma Heath Order Number: [id number] Shawn MD: Blessing Bertrand M.D. Measurements Intervals [place] Rate: 102 P: NE: -1 QRS: 49 QRSD: 84 T: 58 QT: 349 QTc: 455 Interpretive Statements ATRIAL FIBRILLATION WITH RAPID VENTRICULAR RESPONSE NONSPECIFIC ST & T-WAVE ABNORMALITY Compared to ECG 07/03/2020 13:42:36 T-wave abnormality now present Sinus tachycardia no longer present Electronically Signed On 07-07-2020 8:09:41 EPITAXIAL REACTOR TECHNICIAN by Blessing Bertrand M.D. [id number]
[2020-07-03 19:28] LABS: Urine Protein Random 73 mg/dL; Urine Random Chloride 18 mmol/L; Urine Random Sodium 13 mmol/L
[2020-07-03 19:29] LABS: Urea Nitrogen,Urine Random 908 mg/dL
[2020-07-03 19:30] LABS: Eosinophil Urine No Eosinophils Seen; Urine Eosinophil Count 0 (0-0)
[2020-07-03 19:51] LABS: Creatine Phosphokinase 31 U/L (26-192); Thyroid Stimulating Hormone 0.86 uIU/mL (0.27-4.20); Uric Acid 10.5 mg/dL (2.4-5.7)
[2020-07-03] MEDS: pantoprazole 40 mg SDV IVP (20:06)
[2020-07-03] MEDS: enoxaparin 100 mg/mL Syringe 60 MG SUBCUT (20:07)
[2020-07-03 22:12] LABS: Sodium 160 mmol/L (136-145)
[2020-07-03 22:13] LABS: Troponin 5 6HR 61.29 ng/L (0-10)
[2020-07-03 22:16] LABS: Troponin 5 6HR Delta -4.71 ng/L (0-12)
[2020-07-04] VITALS (157 sets, daily range): BP systolic 76–123; BP diastolic 46–79; PULSE 76–167; RESP 12–30; TEMP 36.6–37.4; O2SAT 89–98
[2020-07-04] MEDS: vancomycin 1,000 MG in sodium chloride 0.9% 250 ML 250 MG IV (01:41)
[2020-07-04] MEDS: dextrose 5% 1,000 ML 100 ML IV (01:41)
[2020-07-04 04:15] LABS: Hemoglobin 10.8 g/dL (11.5-15.3); Mean Corpuscular HGB Conc 28.4 g/dL (30.0-36.0); Mean Corpuscular Hemoglobin 30.6 pg (28.0-34.0); Mean Corpuscular Volume 107.6 fL (81-99); Mean Platelet Volume 13.3 fL (7.4-10.4); Platelet Count 220 10^3/cmm (130-400); Red Blood Count 3.53 10^6/uL (4.1-5.3)
[2020-07-04 04:24] LABS: Lactic Sepsis W/Reflex 2.4 mmol/L (0.5-2.2)
[2020-07-04 04:30] LABS: Alanine Aminotransferase 9 U/L (0-33); Albumin Level 2.5 g/dL (3.5-5.2); Alkaline Phosphatase 57 IU/L (35-105); Anion Gap 18.4 (5-19); Aspartate Amino Transferase 33 U/L (0-32); Blood Urea Nitrogen 60 mg/dL (8-23); C Reactive Protein 260.8 mg/L (0.0-4.9); Calcium 7.7 mg/dL (8.5-10.5); Carbon Dioxide 19 mmol/L (22-29); Chloride 126 mmol/L (98-107); Globulin 2.7 g/dL (1.3-4.6); Glucose 175 mg/dL (65-115); Magnesium 2.2 mg/dL (1.7-2.3); Osmolality Calculated 351 mOsm/kg (285-295); Phosphorus 3.7 mg/dL (2.5-4.5); Potassium 3.4 mmol/L (3.5-5.1); Sodium 160 mmol/L (136-145); Total Bilirubin 0.3 mg/dL (0.15-1.2); Total Protein 5.2 g/dL (6.6-8.7)
[2020-07-04 04:45] LABS: INR 2.21 (0.8-1.2)
[2020-07-04 04:46] LABS: Fibrinogen 484 mg/dL (174-498); NT Pro B Type Natriuretic Pept 2779 pg/mL (0-125); Procalcitonin 5.84 ng/mL (0-0.5)
[2020-07-04 04:59] LABS: Creatine Phosphokinase 79 U/L (26-192); Sodium 157 mmol/L (136-145)
[2020-07-04 05:00] LABS: Slide Review Slide Review Perform
[2020-07-04 05:02] LABS: White Blood Count 30.2 10^3/uL (4.0-10.0)
[2020-07-04 05:08] LABS: Absolute Neutrophil 23.9 10^3/cmm (1.4-6.5); Absolute Segmented Neutrophil 15.4 10/cmm (1.6-7.1); Band Neutrophils Absolute 8.5 10^3/cmm (0.0-1.2); D Dimer >= 20.00 ug/mIFEU (0-0.59); Eosinophils 0 %; Lymphocytes 11 %; Monocytes Absolute 2.1 10^3/cmm (0.1-0.6); Platelet Estimate Normal (Normal); Polychromasia 1+; Segmented Neutrophils 51 %; Total Cells Counted 100 (0-100)
[2020-07-04 05:11] LABS: ABG PCO2 39.6 mmHg (35-45); ABG PH Result 7.32 (7.35-7.45); Arterial Blood Gas Hematocrit 36.4 % (37-47); Base Excess ABG -5.4 mmol/L (-2.0-2.0); Blood Gas Allen Test Pos; Blood Gas Sample Site Brachial, right; Blood Gas Sample Type Arterial; HCO3 ABG 20.3 mmol/L (22-26); Oxygen Device VENT; PO2 ABG 69.9 mmHg (80.0-100.0)
[2020-07-04 05:12] LABS: Blood Gas Tidal Volume 0.45
[2020-07-04 05:35] LABS: Reflex Lactate Order REFLEX LACTIC ORDERD
--- NOTE | 2020-07-04 06:00 | ECG_ITS ---
[facility] ED Test Date: 2020-07-04 Pat Name: Naida Yap Department: Room: ICU19 Gender: Female Stream Control Officer: : 1945 Requested By: Omero Sanford Order Number: [id number] Shawn MD: Blessing Bertrand M.D. Measurements Intervals [place] Rate: 99 P: PA: -1 QRS: 54 QRSD: 84 T: -83 QT: 380 QTc: 489 Interpretive Statements ATRIAL FIBRILLATION NONSPECIFIC ST & T-WAVE ABNORMALITY Compared to ECG 07/03/2020 23:41:29 No significant changes Electronically Signed On 07-06-2020 22:04:27 DIRECTOR TRIAL by Blessing Bertrand M.D. [id number]
--- NOTE | 2020-07-04 07:00 | XRR_ITS ---
PROCEDURE INFORMATION: Exam: XR Chest, 1 View Exam date and time: 07/04/2020 4:00 AM Age: 75 years old Clinical indication: Condition or disease and device placement; Ett placement (vent status); Other: Covid; Patient HX: Et, og, central lines; Additional info: SOB TECHNIQUE: Imaging protocol: XR of the chest Views: 1 view. COMPARISON: CT chest abd pel wo con 07/03/2020 11:02 PM FINDINGS: Tubes, catheters and devices: An endotracheal tube is placed with its tip approximately 3.8 cm from the thomas. Lungs: There are diffuse ground-glass opacities present within the hemithoraces with some strandy opacities seen in lower hemithoraces, findings compatible with a bilateral interstitial pneumonia. Pleural space: Unremarkable. No pleural effusion. No pneumothorax. Heart/Mediastinum: Unremarkable. No cardiomegaly. Bones/joints: Unremarkable. XR/XR chest 1V portable [id number] IMPRESSION: Bilateral ground-glass opacities with strandy opacities present in the lung bases bilaterally, findings suggesting a bilateral interstitial pneumonia and bilateral basilar atelectasis. Imaging features can be seen with COVID-19 pneumonia, though are nonspecific and can occur with a variety of infectious and noninfectious processes. (Reference: López) REFERENCES: López Soler, et al., Radiological Society of [place] Expert Consensus Statement on Reporting Chest CT Findings Related to COVID-19. Endorsed by the Society of Thoracic Radiology, the [employer], and RSNA. Published November 12, 2019.
[2020-07-04 07:03] LABS: Lactic Acid level (Lactate) 2.3 mmol/L (0.5-2.2)
--- NOTE | 2020-07-04 07:32 | USCV_ITS ---
Naida Yap Age: 75 Gender: F : 1945 Exam Date: 07/04/2020 08:33 Ordering Phys: Omero Sanford MD Technologist: Zhane Mckenna Exam Location: [facility] [place] Indication: LEFT SUBCLAVIAN ARTERY INJURY Risk Factors: Unknown Previous Vascular Surgery: Unknown Right BP: / Left BP: / RIGHT LEFT PSV PSV (cm/s) (cm/s) Waveform Waveform Subclavian Proximal 145.7 Triphasic Subclavian Distal 98.6 Biphasic Axillary 65.3 Biphasic Brachial Proximal 33.6 Biphasic Brachial Mid 48.6 Biphasic Brachial at AC 88.1 Biphasic Radial at Wrist 82.7 Triphasic Ulnar at Wrist 70.1 Triphasic FINDINGS See measurements listed above. Relatively low Doppler flow velocities in the proximal and mid brachial artery segments The proximal and mid radial and ulnar arteries were not visualized-due to IV lines Normal Doppler signals in the distal radial and ulnar arteries CONCLUSIONS 1. Patent left subclavian, axillary, brachial, distal radial and ulnar arteries. The proximal and mid brachial, radial and ulnar arteries were not visualized Possibly no significant arterial obstruction, based on the above findings. Technically somewhat limited study Dr Chandler Santos MD [facility] (Electronically Signed) Final Date: 04 July 2020 10:23 S
--- NOTE | 2020-07-04 07:45 | PM.PN ---
Subjective Subjective: Interval history: sedated, intubated,unable to get a ROS. Medications: Reviewed: Yes Medication Review Details: Current Medications Ascorbic Acid (Ascorbic Acid 500 Mg Tablet) 500 mg PO DAILY [facility] Aspirin (Aspirin 81 Mg Chew Tablet) 81 mg PO DAILY TAJ Atorvastatin Calcium (Atorvastatin 40 Mg Tablet) 20 mg PO DAILY [facility] Cyanocobalamin (Cyanocobalamin 1,000 Mcg Tablet) 1,000 mcg PO DAILY [facility] Dexamethasone (Dexamethasone 4 Mg/Ml Inj) 6 mg IVP Q24H TAJ Dextrose (Dextrose 50% Syringe 50 Ml) 25 ml IVP ONCE PRN; Protocol PRN Reason: hypoglycemia protocol Dextrose (Dextrose 50% Syringe 50 Ml) 50 ml IVP PRN PRN; Protocol PRN Reason: hypoglycemia protocol Divalproex Sodium (Divalproex Dr 250 Mg Tablet) 250 mg PO BID [facility] Last Admin: 07/04/20 01:25 Dose: Not Given Documented by: Enoxaparin Sodium (Enoxaparin 60 Mg/0.6 Ml Syringe) 60 mg SUBCUT Q24H [facility] Folic Acid (Folic Acid 1 Mg Tablet) 1 mg PO DAILY [facility] Glucagon (Glucagon 1 Mg/Ml Inj 1 Ml) 1 mg IM ONCE PRN; Protocol PRN Reason: Adult Acute Hypoglycemia Prot. Fentanyl 1,000 mcg/ Sodium (Chloride) 100 mls @ 0 mls/hr IV .Q0M TAJ; Protocol Last Admin: 07/03/20 23:40 Dose: 100 mcg/hr, 10 mls/hr Documented by: remdesivir (EUA) 100 mg/ (Sodium Chloride) 100 mls @ 100 mls/hr IV Q24H [facility] Stop: 07/07/20 16:59 Propofol (Diprivan) 1,000 mg in 100 mls @ 0 mls/hr IV .Q0M TAJ; Protocol Vancomycin HCl 1,000 mg/ (Sodium Chloride) 250 mls @ 250 mls/hr IV Q24H TAJ; Protocol Last Admin: 07/04/20 01:41 Dose: 250 mls/hr Documented by: Azithromycin 500 mg/ Sodium (Chloride) 250 mls @ 250 mls/hr IV Q24H TAJ; Protocol Last Admin: 07/03/20 18:19 Dose: 250 mls/hr Documented by: Dextrose (D5w) 1,000 mls @ 100 mls/hr IV .Q10H TAJ Last Admin: 07/04/20 01:41 Dose: 100 mls/hr Documented by: Norepinephrine Bitartrate 4 mg (/ Dextrose) 254 mls @ 0 mls/hr IV .Q0M [facility]; Protocol Last Admin: 07/03/20 17:15 Dose: 4 mcg/min, 15.2 mls/hr Documented by: Dextrose (D5w) 500 mls @ 100 mls/hr IV ONCE PRN; Protocol PRN Reason: Adult Acute Hypoglycemia Prot Sodium Chloride (Sodium Chloride 0.45%) 1,000 mls @ 100 mls/hr IV .Q10H [facility] Last Admin: 07/03/20 18:18 Dose: 100 mls/hr Documented by: Imipenem/Cilastatin Sodium 250 (mg/ Sodium Chloride) 100 mls @ 200 mls/hr IV Q6H TAJ Insulin Aspart (Insulin Aspart 100 Unit/1 Ml) 0 unit SUBCUT TIDWM [facility]; Protocol Last Admin: 07/03/20 23:45 Dose: Not Given Documented by: Naloxone HCl (Naloxone 0.4 Mg/Ml Sdv) 0.1 mg IVP Q2M PRN PRN Reason: OPIATERV Ondansetron HCl (Ondansetron 2 Mg/Ml Sdv 2 Ml) 4 mg IVP Q8H PRN PRN Reason: vomiting, or N/V if npo Pantoprazole Sodium (Pantoprazole 40 Mg Sdv) 40 mg IVP Q24H [facility] Last Admin: 07/03/20 20:06 Dose: 40 mg Documented by: Vitamin D (Cholecalciferol (Vitamin D3) 5,000 Unit Tablet) 5,000 unit PO DAILY [facility] Zinc Gluconate (Zinc Gluconate 50 Mg Tablet) 100 mg PO DAILY [facility] Vitals/I&O/Wt Last Vital Signs Temp 98.5 F 07/04/20 04:00 Pulse 79 07/04/20 06:55 Resp 17 07/04/20 06:55 BP 105/64 07/04/20 06:55 Pulse Ox 95 07/04/20 06:55 07/03/20 07/04/20 07/04/20 22:59 06:59 14:59 Intake Total 1108.375 / 1208.375 35 / 1243.375 Output Total 350 / 350 Balance 1108.375 / 1208.375 -315 / 893.375 Weight last 48 hrs Weight 61.235 kg Physical Exam Narrative: EXAM NARRATIVE: intubated- fio2 65%, TV 450, peep8, rat 14. on levo @ 4 sedated, intubated, monimally responsive heent- nc/at, eomi, anicteric, + NG t neck supple lung ronchi heart reg abd soft, nt, nd, +BS ext minimal edema + lieberman Urinary Catheter Management^: Lieberman: Cath Placed During This Visit: yes Reason for Continuing Indwelling Catheter: Accurate Measurement of Urinary Output in Critically Ill Patients Urinary Catheter Date of Insertion: 07/03/20 Urinary Catheter Time of Insertion: 13:27 Data : 07/04/20 03:15 07/04/20 03:15 Micro: Microbiology 07/03/20 13:28 Bacterial Antigens - Final Urine,Voided 07/03/20 14:50 Gram Stain - Final Sputum - Endotracheal Tube Aspirate A&P Additional A&P Information 75 yr old female h/o TIA, UIT, type 2 dm, GERD. recent dx of COVID-19. Pt admitted w/ septic shock and TODD, hypernatremia. 1. Oligoanuric renal failure. DDX is prerenal azotemia, ATN both from renal hypoperfusion and sepsis. -also concern for COVID-19 induced renal disease - u/a 3+ blood, 50-80 rbc, 5-10 wbc, sq epi- 15-25 -low ur na- monitor w/ ivf -normal TSH, cpk Continue pressors to maintain MAP greater than 65 Continue IV hydration for the time being Avoid usual nephrotoxic agents Strict ins and outs -monitor k, cr, pulm status for dialysis needs -ct w/ left nephrolithiasis- no hydronephrosis 2. Hypernatremia Free water deficit 5.7 L cont half-normal saline at 125 cc/h Every 12 BMP 3. Vent dependent respiratory failure Secondary to Covid- 19 and severe b/l PNA On combination antibiotics including vancomycin, Primaxin, azithromycin - renal dose. monitor vanco levels Dexamethasone Remdesivir -only of GFR above 30 ml/min Vent management per ICU team 4. abg- 7.32/39/70- met and resp acidosis- rx infection, ivf, vent management per critical care -lactate improving from 4.8 to 2.4 5. leukocytosis - worsened- monitor exam- monitor for abscess or other infectious source 6. hgb dropped from 15- 10- pt was likely very dry -check b12, folate- high MCV 7. high INR, D-dimer. can be covid-19 related or DIC 8. uric acid 10.5- repeat- likely from intravascular volume depletion 9. + trop per medicine- check echo, especially given high BNP prognosis guarded Interview performed via telemedicine with the aid of the bedside nurse. Attestations Medical Necessity Statement*: vdrf, pna, todd, septic shock Time Spent in Patient Care: Greater than 35 minutes Coding Level of Care Code Acute Librarian Special Library for Michael Catalan
--- NOTE | 2020-07-04 07:52 | XRR_ITS ---
PROCEDURE INFORMATION: Exam: XR Abdomen, 1 View Exam date and time: 07/04/2020 8:28 AM Age: 75 years old Clinical indication: Device placement; Non-vascular device; Other: Og tube; Patient HX: PT intubated no HX available; Additional info: Gastric tube placement TECHNIQUE: Imaging protocol: XR of the abdomen. Views: Frontal supine view of the abdomen. 1 View. COMPARISON: CT chest abd pel wo con 07/03/2020 11:02 PM FINDINGS: Tubes, catheters and devices: The feeding tube enters the stomach with the tip in the distal second portion duodenum. EKG leads present overlying the abdomen. Gastrointestinal tract: Unremarkable. No bowel dilation. Organs: The gallbladder is likely surgically absent, with metallic clips overlying the gallbladder fossa. Bones/joints: L3 vertebral body compression deformity redemonstrated. XR/XR abdomen 1V* [id number] IMPRESSION: 1. Feeding tube tip in the second portion duodenum. 2. Prior cholecystectomy.
[2020-07-04 07:55] LABS: Glucose Point of Care 146 mg/dL (70-110)
[2020-07-04] MEDS: sodium chloride 0.45% 1,000 ML 100 ML IV ×2 (08:36→15:25)
[2020-07-04] MEDS: sodium bicarbonate 8.4% 1 mEq/mL 50mL Syr 50 MEQ IVP (08:36)
[2020-07-04] MEDS: dexamethasone 4 mg/mL INJ 6 MG IVP (08:37)
--- NOTE | 2020-07-04 09:02 | PC.NURSE ---
IV site where levophed is infusing noted to be infiltrated. Upon last assessment at 0800 IV site appeared WNL. IV discontinued, border marked, physician notified, will continue to monitor closely.
[2020-07-04] MEDS: zinc gluconate 50 mg Tablet 100 MG PO (09:06)
[2020-07-04] MEDS: ascorbic acid 500 mg Tablet PO (09:06)
[2020-07-04] MEDS: atorvastatin 40 mg Tablet 20 MG PO (09:06)
[2020-07-04] MEDS: cholecalciferol (vitamin D3) 5,000 unit Tablet 5000 UNIT PO (09:07)
[2020-07-04] MEDS: folic acid 1 mg Tablet PO (09:07)
[2020-07-04] MEDS: cyanocobalamin 1,000 mcg Tablet 1000 MCG PO (09:07)
[2020-07-04] MEDS: aspirin 81 mg Chew Tablet PO (09:07)
[2020-07-04] MEDS: valproic acid 250 mg/5 mL UDC PO ×2 (09:15→17:34)
[2020-07-04] MEDS: nitroglycerin 1 gm/inch oint Pkt 1 INCH TOPICAL ×2 (10:30→14:15)
[2020-07-04 11:34] LABS: Sodium 157 mmol/L (136-145)
--- NOTE | 2020-07-04 11:47 | XRR_ITS ---
PROCEDURE INFORMATION: Exam: XR Chest, 1 View Exam date and time: 07/04/2020 11:58 AM Age: 75 years old Clinical indication: Device placement; Picc; Additional info: Central line TECHNIQUE: Imaging protocol: XR of the chest Views: Frontal portable semiupright view of the chest. COMPARISON: CR XR chest 1V portable [id number] 07/04/2020 5:12 AM FINDINGS: Tubes, catheters and devices: The right internal jugular venous catheter tip is in the lower SVC. The feeding tube enters the stomach with the tip off the limits of the image. The endotracheal tube tip is approximately 13 mm above the thomas. EKG leads are present overlying the chest. Lungs: Improved right basilar pulmonary subsegmental atelectasis. Stable left basilar pulmonary subsegmental atelectasis. The pulmonary vasculature appears attenuated in the bilateral upper lung zones. Pleural space: No pleural effusion. No pneumothorax. Heart/Mediastinum: The heart is normal in size and contour. Mediastinum: Stable. Mediastinum: Stable. Vasculature: Mild aortic arch atherosclerotic calcification without ectasia. Mild tortuosity of the upper descending thoracic aorta. Diaphragm: The left hemidiaphragm is mildly elevated. Bones/joints: Stable. Stable. XR/XR chest 1V portable [id number] IMPRESSION: 1. Improved right basilar pulmonary subsegmental atelectasis. 2. Stable left basilar pulmonary subsegmental atelectasis. 3. Bilateral pulmonary emphysema. 4. The endotracheal tube tip is approximately 13 mm above the thomas. Recommend retraction of 2-3 cm. 5. Central venous catheter placement as above. No evidence of complication.
[2020-07-04 11:52] LABS: Vancomycin Random 14.8 ug/mL (20.0-40.0)
--- NOTE | 2020-07-04 12:17 | PM.PN ---
Subjective Subjective: Interval history: This morning patient was examined, she is intubated, sedated, currently on fentanyl, she remains on Levophed, had episodes with A. fib RVR, requiring Cardizem, right IJ was inserted by ER physician Dr. Grayson, left subclavian artery injury site, looks clean and dry, no active bleeding, ultrasound reviewed shows no active bleeding, has good radial and ulnar pulses on the left, she also had a right IJ attempt yesterday in the ER, no active bleeding, has minimal mottling of bilateral lower extremities, currently on 65% FiO2, tidal volume 450, PEEP of 8, respiratory rate 14. Urine output remains lackluster, 350 cc, but this has picked up a bit, additional 100 cc in the bag now, getting IV hydration with the help of nephro service Vitals/I&O/Wt Last Vital Signs Temp 98.5 F 07/04/20 04:00 Pulse 87 07/04/20 10:15 Resp 16 07/04/20 10:15 BP 111/60 07/04/20 10:15 Pulse Ox 94 07/04/20 10:15 07/03/20 07/04/20 07/04/20 22:59 06:59 14:59 Intake Total 1108.375 / 9694.662 8531 / 2243.375 753.333 / 753.333 Output Total 350 / 350 Balance 1108.375 / 1208.375 685 / 1893.375 753.333 / 753.333 Weight last 48 hrs Weight 61.235 kg Physical Exam Const: COMMON NORMALS: no acute distress GENERAL APPEARANCE: ill appearing NUTRITIONAL APPEARANCE: thin OTHER: Intubated, sedated, on the ventilator HENMT: COMMON NORMALS: normocephalic HEAD & SCALP: normocephalic Neck/C-Spine: COMMON NORMALS: no JVD Resp: COMMON NORMALS: normal respiratory effort, No retractions and No use of accessory muscles AUSCULTATION: crackles and rales Cardio: COMMON NORMALS: no JVD, S1 normal heart sound present and S2 normal heart sound present RATE: tachycardic RHYTHM: abnormal rhythm irregularly irregular HEART SOUNDS: S1 normal heart sound present and S2 normal heart sound present GI: COMMON NORMALS: Normal to inspection, nondistended, normoactive bowel sounds present, Soft to palpation, non-tender, No hepatosplenomegaly present, no masses and no bruits PALPATION: Yes Soft to palpation and Yes No hepatosplenomegaly present Extremity: COMMON NORMALS: capillary refill normal, no calf tenderness and no pedal edema NARRATIVE EXTREMITY EXAM: Minimal skin mottling bilaterally Right upper extremity, radial and ulnar pulses palpable, good capillary refill Psych: COMMON NORMALS: mental status grossly normal Urinary Catheter Management^: Kowalski: Cath Placed During This Visit: yes Reason for Continuing Indwelling Catheter: Accurate Measurement of Urinary Output in Critically Ill Patients Urinary Catheter Date of Insertion: 07/03/20 Urinary Catheter Time of Insertion: 13:27 Data : 07/04/20 03:15 07/04/20 10:55 Micro: Microbiology 07/03/20 14:50 Gram Stain - Final Sputum - Endotracheal Tube Aspirate Sputum Culture - Preliminary 07/03/20 13:28 Bacterial Antigens - Final Urine,Voided A&P Assessment and plan (1) Acute respiratory failure with hypoxia: -Secondary to COVID-19 pneumonia, secondary bacterial infection, UTI, pulmonary edema -Evidence of multiorgan failure -Evidence of DIC -A. fib with RVR -Evidence of septic shock -CT of the chest shows bilateral lower lobe atelectasis and pneumonia, minimal peripheral pulmonary infiltrates PLAN: -Admit to viral ICU -Patient is a full code -Right central line in place, x-ray no pneumothorax, tip over SVC -Therapeutic Lovenox for hypercoagulability is on hold, due to left subclavian artery injury -Patient's DPOA is Sukh Andrade counts [phone], I have already updated on patient's status -Prognosis is guarded, status is critical -On the ventilator, minimize PEEP, minimize FiO2: Currently on 65% FiO2, 450 tidal volume, PEEP of 8, will try to titrate it down -pH this morning 7.32, give 1 amp of bicarb -Fentanyl and propofol for sedation -Decadron day 1 -Remdesivir on hold due to GFR less than 30 -Broad-spectrum antibiotics vancomycin, Primaxin, azithromycin -Start tube feeds, Jevity, low-dose sliding scale, maintain blood sugars between 180-225 -On normal saline at 150 cc an hour for hypovolemic hyponatremia, if urine output does not improve, electrolyte and creatinine do not improve, will seriously consider dialysis catheter placement -On Cardizem drip for A. fib with RVR -Start Levophed, maintain MAP greater than 65 -On hold is therapeutic Lovenox, for concerns for hypercoagulability associate with COVID-19, high D-dimer, cannot do CT angiogram given creatinine -For now I will hold off on Lasix therapy, given TODD, concerns for dehydration -Follow urine cultures, blood cultures, respiratory cultures, urine bacterial antigens -Follow serial inflammatory markers -Daily EKGs to monitor QTC -Consult pulmonary service Status: Acute (2) Pneumonia due to 2019 novel coronavirus: Status: Acute (3) Acute renal insufficiency: -Acute kidney injury, secondary to sepsis, secondary to dehydration, creatinine 1.8 -Normal saline 150 cc an hour monitor urine output, monitor creatinine Status: Acute (4) Secondary bacterial pneumonia: Status: Acute (5) Septic shock: Status: Acute (6) Lactic acidosis: Status: Acute (7) NSTEMI (non-ST elevated myocardial infarction): -Likely supply demand ischemia from acute respiratory failure, septic shock, lactic acidosis -Continue aspirin 81 mg, atorvastatin 40 mg -Echocardiogram shows EF of 55%, segmental wall motion analysis difficult to analyze because of arrhythmia, however no gross wall motion abnormalities were noted -Continue telemetry monitoring Status: Acute (8) UTI (urinary tract infection): Primaxin as above, CT abdomen pelvis shows left nephrolithiasis, small stone in proximal left ureter, no evidence hydronephrosis, Status: Acute (9) Dehydration with hypernatremia: -Hypovolemic hypernatremia - Status: Acute (10) Transaminitis: Status: Acute (11) Type 2 diabetes mellitus: A1c, moderate dose sliding scale Status: Acute (12) DIC (disseminated intravascular coagulation): Status: Acute (13) Atrial fibrillation with RVR: -Cardizem drip as above -Hold anticoagulation given subclavian injury Status: Acute (14) Injury of left subclavian artery: -ct chest showed: The catheter entering along the left side of the neck is intra arterial in position with its tip in the ascending thoracic aorta. -us LUE showed;Patent left subclavian, axillary, brachial, distal radial and ulnar arteries. The proximal and mid brachial, radial and ulnar arteries were not visualized Possibly no significant arterial obstruction, based on the above findings. Technically somewhat limited study -Site looks clean and dry, no active bleeding pressure dressing applied -For now I would hold off on anticoagulation given injury -INR is elevated, D-dimer is elevated, likely DIC, would hold off on FFP, as no active bleeding -In the morning we will talk to Dr. Dias Status: Acute Attestations Medical Necessity Statement*: Patient requires hospitalization for acute hypoxic respiratory failure, multiorgan failure, DIC, A. 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 [facility] Diagnoses Acute respiratory failure with hypoxia J96.01 Pneumonia due to 2019 novel coronavirus U07.1; J12.89 Acute renal insufficiency N28.9 Secondary bacterial pneumonia J15.9 Septic shock A41.9; R65.21 Lactic acidosis E87.2 NSTEMI (non-ST elevated myocardial infarction) I21.4 UTI (urinary tract infection) N39.0 Dehydration with hypernatremia E87.0 Transaminitis R74.01 Type 2 diabetes mellitus E11.9 DIC (disseminated intravascular coagulation) D65 Atrial fibrillation with RVR I48.91 Injury of left subclavian artery S25.102A Sepsis Event Note Evaluation Current stage of sepsis: severe sepsis Persistent hypotension due to sepsis/infection: SBP < 90 mmHg Possible source: pulmonary and genitourinary Focused Exam Vital Signs Temp Pulse Resp BP Pulse Ox 07/04/20 10:15 87 16 111/60 94 07/04/20 10:00 89 18 105/61 95 07/04/20 09:45 84 14 103/69 95 07/04/20 09:30 83 16 107/61 94 07/04/20 09:15 117 H 14 109/76 95 07/04/20 09:00 98 13 115/73 94 07/04/20 08:45 86 13 117/79 95 07/04/20 08:30 118 H 19 H 111/56 93 07/04/20 08:28 86 14 94 07/04/20 08:15 84 14 96/62 95 07/04/20 08:00 86 15 94/61 94 07/04/20 07:45 88 14 97/79 93 07/04/20 07:30 92 22 H 96/57 95 07/04/20 07:15 87 14 106/62 94 07/04/20 07:00 112 H 17 105/64 93 07/04/20 06:55 79 17 105/64 95 07/04/20 06:50 89 20 H 105/64 95 07/04/20 06:45 90 17 102/56 94 07/04/20 06:40 106 H 16 102/56 94 07/04/20 06:35 83 16 102/56 94 07/04/20 06:30 113 H 15 89/56 94 07/04/20 06:25 108 H 15 89/56 94 07/04/20 06:20 88 17 89/56 95 07/04/20 06:18 15 07/04/20 06:15 99 15 91/51 95 07/04/20 06:10 85 14 91/51 95 07/04/20 06:05 107 H 15 91/51 95 07/04/20 06:00 93 16 98/56 95 07/04/20 05:55 79 15 98/56 94 07/04/20 05:50 101 H 13 98/56 94 07/04/20 05:45 113 H 12 89/52 94 07/04/20 05:40 97 16 89/52 94 07/04/20 05:35 93 13 89/52 93 07/04/20 05:30 91 13 102/70 93 07/04/20 05:25 95 19 H 102/70 92 07/04/20 05:20 121 H 18 102/70 93 07/04/20 05:15 98 13 100/60 96 07/04/20 05:10 90 15 100/60 95 07/04/20 05:05 105 H 17 100/60 95 07/04/20 05:00 81 16 102/61 95 07/04/20 04:55 93 17 102/61 95 07/04/20 04:50 95 20 H 102/61 95 07/04/20 04:45 94 18 115/64 96 07/04/20 04:40 105 H 18 115/64 95 07/04/20 04:35 93 19 H 115/64 96 07/04/20 04:30 88 15 101/60 95 07/04/20 04:25 88 16 101/60 95 07/04/20 04:20 105 H 15 101/60 95 07/04/20 04:15 105 H 16 105/64 95 07/04/20 04:10 80 19 H 105/64 95 07/04/20 04:05 97 14 105/64 95 07/04/20 04:00 98.5 F 91 15 103/63 95 07/04/20 03:55 105 H 18 103/63 95 07/04/20 03:50 84 16 103/63 95 07/04/20 03:45 77 15 104/69 95 07/04/20 03:40 110 H 28 H 104/69 95 07/04/20 03:35 88 16 104/69 95 07/04/20 03:30 107 H 18 104/58 95 07/04/20 03:28 16 07/04/20 03:27 84 15 96 07/04/20 03:25 84 16 104/58 96 07/04/20 03:20 84 14 104/58 96 07/04/20 03:15 85 19 H 100/63 96 07/04/20 03:10 112 H 16 100/63 95 07/04/20 03:05 78 16 100/63 95 07/04/20 03:00 94 19 H 107/67 96 07/04/20 02:55 76 18 107/67 96 07/04/20 02:50 92 14 107/67 96 07/04/20 02:45 100 20 H 105/65 96 07/04/20 02:40 96 13 105/65 95 07/04/20 02:35 99 17 105/65 95 07/04/20 02:30 94 13 99/66 95 07/04/20 02:25 79 13 99/66 95 07/04/20 02:20 107 H 16 99/66 95 07/04/20 02:15 89 13 107/63 96 07/04/20 02:10 93 13 107/63 95 07/04/20 02:05 79 13 107/63 95 07/04/20 02:00 98 14 107/71 95 07/04/20 01:55 85 15 107/71 95 07/04/20 01:50 103 H 13 107/71 95 07/04/20 01:45 115 H 19 H 123/65 95 07/04/20 01:40 110 H 30 H 123/65 93 07/04/20 01:36 15 07/04/20 01:35 103 H 17 123/65 98 07/04/20 01:30 101 H 19 H 98 07/04/20 01:25 93 22 H 97 07/04/20 01:20 95 22 H 98 07/04/20 01:15 93 15 98 07/04/20 01:10 93 15 98 07/04/20 01:05 94 15 98 07/04/20 01:00 95 13 98 07/04/20 00:55 76 13 98 07/04/20 00:50 100 13 98 07/04/20 00:45 94 15 98 07/04/20 00:40 123 H 17 98 07/04/20 00:35 92 15 98 07/04/20 00:30 97 14 98 Respiratory exam: Present patient mechanically ventilated Cardiovascular exam: Present tachycardia and irregularly irregular Capillary refill: > 3 Seconds Peripheral pulse strength: 1+ Faint Peripheral pulse location: Radial Skin exam: mottling Date exam was performed: 07/04/20 Time exam was performed: 12:27 Bedside Monitoring Fluid responsiveness: Fluid Responsive Date bedside monitoring was performed: 07/04/20 Time bedside monitoring was performed: 12:27 Problem List (1) Acute respiratory failure with hypoxia: Status: Acute (2) Pneumonia due to 2019 novel coronavirus: Status: Acute (3) Acute renal insufficiency: Status: Acute (4) Secondary bacterial pneumonia: Status: Acute (5) Septic shock: Status: Acute (6) Lactic acidosis: Status: Acute (7) NSTEMI (non-ST elevated myocardial infarction): Status: Acute (8) UTI (urinary tract infection): Status: Acute (9) Dehydration with hypernatremia: Status: Acute (10) Transaminitis: Status: Acute (11) Type 2 diabetes mellitus: Status: Acute (12) DIC (disseminated intravascular coagulation): Status: Acute (13) Atrial fibrillation with RVR: Status: Acute (14) Injury of left subclavian artery: Status: Acute
[2020-07-04 12:35] LABS: Alanine Aminotransferase 9 U/L (0-33); Albumin Level 2.5 g/dL (3.5-5.2); Alkaline Phosphatase 60 IU/L (35-105); Anion Gap 13.5 (5-19); Aspartate Amino Transferase 27 U/L (0-32); Blood Urea Nitrogen 55 mg/dL (8-23); Calcium 7.9 mg/dL (8.5-10.5); Carbon Dioxide 22 mmol/L (22-29); Chloride 125 mmol/L (98-107); Glucose 157 mg/dL (65-115); Osmolality Calculated 342 mOsm/kg (285-295); Potassium 3.5 mmol/L (3.5-5.1); Sodium 157 mmol/L (136-145); Total Bilirubin 0.2 mg/dL (0.15-1.2); Total Protein 5.5 g/dL (6.6-8.7)
--- NOTE | 2020-07-04 16:53 | USCV_ITS ---
Naida Yap Age: 75 Gender: F : 1945 Exam Date: 07/04/2020 06:03 Ordering Phys: Omero Sanford MD Technologist: Zhane Mckenna Exam Location: [facility] [place] Indication: SOB BP: 102 / 70 HR: 104 Rhythm: Atrial fibrillation Technical Quality: Technically difficult study MEASUREMENTS (Male / Female) Normal Values 2D ECHO LV Chamber Size 2.9 cm RV Chamber Size 2.7 cm LVOT Diameter 2.0 cm LA Diameter 3.6 cm LA Width 3.3 cm LA Height 4.9 cm RA Width 2.5 cm RA Height 3.0 cm M-MODE LV Diastolic Diameter MM 3.5 cm 4.2 - 5.9 / 3.9 - 5.3 cm LV Systolic Diameter MM 1.8 cm LV Ejection Fraction MM Teich 79.8 % IVS Diastolic Thickness MM 1.3 cm 0.6 - 1.0 / 0.6 - 0.9 cm IVS Systolic Thickness MM 1.6 cm LVPW Diastolic Thickness MM 1.6 cm 0.6 - 1.0 / 0.6 - 0.9 cm LVPW Systolic Thickness MM 2.0 cm RV Diastolic Diameter MM 1.7 cm Aortic Annulus Diameter 2.9 cm LA Ao Ratio MM 1.2 DOPPLER AV Peak Velocity 132.0 cm/s LVOT Peak Velocity 79.0 cm/s AV Area Cont Eq vti 2.5 cm squared AV Area Cont Eq pk 1.8 cm squared MV Area PHT 2.7 cm squared Mitral E to A Ratio 0.7 MV E' Velocity 57.3 cm/s TR Peak Velocity 230.0 cm/s TR Peak Gradient 21.2 mmHg TV Peak E Velocity 74.0 cm/s Right Atrial Pressure 15.0 mmHg Pulmonary Artery Systolic Pressu 36.2 mmHg PV Peak Velocity 103.0 cm/s RV Acceleration Time 0.1 s RV Ejection Time 0.2 s RV AcT/ET 0.3 FINDINGS Left Ventricle Only subcostal views were obtained. Technically very difficult study possibly normal LV size and ejection fraction. Segmental wall motion analysis difficult because of the arrhythmia. However no gross wall motion of normalities were noted. Right Ventricle Possibly normal RV size and ejection fraction Right Atrium Could not be well visualized. Left Atrium Possibly of normal size Mitral Valve Mild mitral annular calcification. Aortic Valve Thickened aortic valve. Tricuspid Valve [id number] tricuspid valve regurgitation. Pulmonic Valve Pulmonic valve not well visualized. Pericardium No pericardial effusion. Aorta Aorta not well visualized. CONCLUSIONS Possibly normal LV size and ejection fraction. (55%) Segmental wall motion analysis difficult because of the arrhythmia. However no gross wall motion of normalities were noted. Thickened aortic valve. Mild mitral annular calcification. Civi-mi-wcwlzafd tricuspid valve regurgitation. Estimated pulmonary artery peak systolic pressure 36 mmHg. This could be an underestimation because of the poor Doppler signals No pericardial effusion. Technically difficult study because of the poor ultrasonic window. (The subcostal views were obtained) Dr Chandler Santos MD [facility] (Electronically Signed) Final Date: 04 July 2020 10:15 S
--- NOTE | 2020-07-04 16:55 | USR_ITS ---
PROCEDURE INFORMATION: Exam: US Retroperitoneal; Complete; Kidneys and Bladder Exam date and time: 07/03/2020 5:03 PM Age: 75 years old Clinical indication: Abnormal findings; Abnormal lab test; Abnormal kidney function lab tests; Additional info: Gilberto TECHNIQUE: Imaging protocol: Real-time ultrasound of the retroperitoneum with image documentation. Complete exam focused on the kidneys and bladder. COMPARISON: CT chest abd pel wo con 07/03/2020 11:02 PM FINDINGS: Right kidney: The right kidney measures 10.7 x 4.1 x 4.5 cm. The renal cortex measures 1.0 cm. Unremarkable. A brief color Doppler examination of the right kidney was performed showing normal color shifts. Left kidney: Left mid renal 6.0 mm calyceal calculus. Additional smaller left renal calculi suggested, as previously demonstrated. The left kidney measures 8.7 x 4.4 x 4.0 cm. The renal cortex measured at 1.0 cm, multiple areas of focal cortical thinning. No hydronephrosis. Previously depicted left renal upper pole cyst not well demonstrated on this examination. Aorta: The proximal abdominal aorta measures 1.8 cm. The mid abdominal aorta measures 1.8 cm. The distal infrarenal abdominal aorta measures 2.5 cm (remeasured). US/US renal BI* [id number] IMPRESSION: 1. Mild distal infrarenal abdominal aortic ectasia. 2. Left renal calyceal lithiasis. 3. Left renal cortical scarring.
[2020-07-04] MEDS: azithromycin 500 MG in sodium chloride 0.9% 250 ML 250 MG IV (17:34)
[2020-07-04] MEDS: pantoprazole 40 mg SDV IVP (17:34)
[2020-07-04 17:43] LABS: Glucose Point of Care 213 mg/dL (70-110)
--- NOTE | 2020-07-04 19:00 | PC.NURSE ---
Report received, care assumed. Monitor alarms, plan of care et previous orders reviewed. Cardizem, Fentanyl, et Levophed gtts infusing, titrating to effect. Orally intubated with an 8.0 ETT secured 25 cm at the lip, see RT flowsheet for details. OGT present, placement verified per air bolus et x-ray with Jevity 1.2 infusing. Right triple lumen IJ present, placement verified per x-ray. Kowalski catheter to dependent drainage. Bilateral lower extremity SCDs. See physical assessment et vital sign flowsheet for details.
[2020-07-04] MEDS: propofol 1,000 MG/100 ML INJ 1.8 MG IV (22:27)
--- NOTE | 2020-07-04 22:28 | PC.NURSE ---
2230 Danielle Assessment: Patient is not agitated but RT is having difficulty ventilating the patient. Patient is extremely stiff, not relaxing her head or body. Attempts to verbally calm patient have been unsuccessful. Propofol gtt started et titrating to effect. Will continue to monitor.
--- NOTE | 2020-07-04 22:45 | PC.NURSE ---
Patient ventilating et sating better after propofol gtt initiation. Will continue to monitor.
[2020-07-05] VITALS (107 sets, daily range): BP systolic 86–127; BP diastolic 48–73; PULSE 78–135; RESP 14–16; TEMP 36.7–37.3; O2SAT 89–100
[2020-07-05] MEDS: sodium chloride 0.45% 1,000 ML 100 ML IV (00:07)
[2020-07-05] MEDS: vancomycin 1,000 MG in sodium chloride 0.9% 250 ML 250 MG IV ×2 (00:07→23:54)
[2020-07-05] MEDS: ipratropium-albuterol 3 mL Neb INHALATION ×2 (00:45→07:57)
[2020-07-05] MEDS: nitroglycerin 1 gm/inch oint Pkt 1 INCH TOPICAL (01:49)
[2020-07-05 04:11] LABS: ABG PCO2 42.5 mmHg (35-45); ABG PH Result 7.32 (7.35-7.45); Arterial Blood Gas Hematocrit 34.3 % (37-47); Blood Gas Allen Test Pos; Blood Gas Sample Type Arterial; HCO3 ABG 21.9 mmol/L (22-26)
[2020-07-05 04:12] LABS: Blood Gas Operator Identificat HARKR; Blood Gas Sample Site Radial, right; Blood Gas Tidal Volume 0.45; Oxygen Device VENT
[2020-07-05 04:57] LABS: Lactic Sepsis W/Reflex 2.2 mmol/L (0.5-2.2)
[2020-07-05 05:15] LABS: Creatine Phosphokinase 58 U/L (26-192); NT Pro B Type Natriuretic Pept 1245 pg/mL (0-125)
[2020-07-05 05:52] LABS: INR 1.76 (0.8-1.2)
[2020-07-05 05:53] LABS: Fibrinogen 465 mg/dL (174-498); Partial Thromboplastin Time 39.2 SECONDS (23.9-36.7)
--- NOTE | 2020-07-05 06:00 | ECG_ITS ---
[facility] ED Test Date: 2020-07-05 Pat Name: Naida Yap Department: Room: ICU19 Gender: Female [employer] Operator: : 1945 Requested By: Omero Sanford Order Number: [id number] Shawn MD: Blessing Bertrand M.D. Measurements Intervals [place] Rate: 87 P: 67 DC: 128 QRS: 18 QRSD: 78 T: 54 QT: 366 QTc: 441 Interpretive Statements SINUS RHYTHM WITH OCCASIONAL SUPRAVENTRICULAR PREMATURE COMPLEXES LOW QRS VOLTAGE IN PRECORDIAL LEADS [QRS DEFLECTION < 1.0 mV IN CHEST LEADS] SEPTAL MYOCARDIAL INFARCTION [40+ ms Q WAVE IN V1/V2], OF INDETERMINATE AGE Compared to ECG 07/04/2020 03:41:24 Low QRS voltage now present Myocardial infarct finding now present Atrial fibrillation no longer present T-wave abnormality no longer present Electronically Signed On 07-06-2020 22:00:26 [employer] VAT TENDER by Blessing Bertrand M.D. [email or web address]
[2020-07-05 06:06] LABS: D Dimer 5.94 ug/mIFEU (0-0.59)
[2020-07-05 06:17] LABS: Reflex Lactate Order REFLEX LACTIC ORDERD
--- NOTE | 2020-07-05 07:00 | XR_ITS ---
WS: [id number] Exam: XR chest 1V portable [id number] Date/Time of Exam: 07/05/2020 5:34 AM Reason For Exam: sob Comparison 07/04/2020. Bibasal pulmonary infiltrates show little change. Left lower lobe atelectasis. The lungs remain fully expanded. No pneumothorax or pleural effusion. Heart size is normal. The mediastinum is not widened. ET tube ends about 1.5 cm above the thomas unchanged in position. Right-sided IJ catheter ends at th e cavoatrial junction. Monitoring leads superimpose the chest. XR/XR chest 1V portable [id number] IMPRESSION: 1. Bilateral pulmonary infiltrates show little change. 2. ET tube ending about 1.5 cm above the thomas. Suggest retraction of the tube 2 to 3 cm for optimal position. 3. Left lower lobe atelectasis.
[2020-07-05 07:10] LABS: Basophils # 0.1 10^3/uL (0.0-0.1); Basophils % 0.3 %; Hematocrit 32.6 % (37.0-47.0); Hemoglobin 9.4 g/dL (11.5-15.3); Lymphocytes # 1.8 10^3/uL (0.8-4.8); Lymphocytes % 6.8 %; Mean Corpuscular HGB Conc 28.8 g/dL (30.0-36.0); Mean Corpuscular Hemoglobin 30.6 pg (28.0-34.0); Mean Corpuscular Volume 106.2 fL (81-99); Monocytes # 1.2 10^3/uL (0.2-0.9); Monocytes % 4.4 %; Neutrophils # 22.33 10^3/uL (1.8-7.7); Neutrophils % 84.6 %; Nucleated Red Blood Cells # 0.1 /100WBC; Nucleated Red Blood Cells % 0.3 %; Platelet Count 228 10^3/cmm (130-400); Red Blood Count 3.07 10^6/uL (4.1-5.3); White Blood Count 26.4 10^3/uL (4.0-10.0)
[2020-07-05 07:21] LABS: Lactic Acid level (Lactate) 2.4 mmol/L (0.5-2.2)
--- NOTE | 2020-07-05 07:22 | PC.NURSE ---
Report given to next shift.
[2020-07-05 07:23] LABS: Alanine Aminotransferase 10 U/L (0-33); Albumin Level 2.2 g/dL (3.5-5.2); Alkaline Phosphatase 83 IU/L (35-105); Anion Gap 12.7 (5-19); Aspartate Amino Transferase 28 U/L (0-32); Blood Urea Nitrogen 54 mg/dL (8-23); C Reactive Protein 186.8 mg/L (0.0-4.9); Calcium 7.5 mg/dL (8.5-10.5); Carbon Dioxide 23 mmol/L (22-29); Chloride 117 mmol/L (98-107); Globulin 2.5 g/dL (1.3-4.6); Glucose 265 mg/dL (65-115); Magnesium 2.1 mg/dL (1.7-2.3); Osmolality Calculated 332 mOsm/kg (285-295); Phosphorus 2.8 mg/dL (2.5-4.5); Potassium 3.7 mmol/L (3.5-5.1); Sodium 149 mmol/L (136-145); Total Bilirubin 0.2 mg/dL (0.15-1.2); Total Protein 4.7 g/dL (6.6-8.7)
--- NOTE | 2020-07-05 07:48 | PM.PN ---
Subjective Subjective: Interval history: sedated on levophed @ 8. swollen Medications: Reviewed: Yes Medication Review Details: Current Medications Albuterol/Ipratropium (Ipratropium-Albuterol 3 Ml Neb) 3 ml INHALATION Q4H.RESPIRATORY PRN PRN Reason: SHORTNESS OF BREATH Last Admin: 07/05/20 00:45 Dose: 3 ml Documented by: Ascorbic Acid (Ascorbic Acid 500 Mg Tablet) 500 mg PO DAILY [facility] Last Admin: 07/04/20 09:06 Dose: 500 mg Documented by: Aspirin (Aspirin 81 Mg Chew Tablet) 81 mg PO DAILY [facility] Last Admin: 07/04/20 09:07 Dose: 81 mg Documented by: Atorvastatin Calcium (Atorvastatin 40 Mg Tablet) 20 mg PO DAILY [facility] Last Admin: 07/04/20 09:06 Dose: 20 mg Documented by: Cyanocobalamin (Cyanocobalamin 1,000 Mcg Tablet) 1,000 mcg PO DAILY [facility] Last Admin: 07/04/20 09:07 Dose: 1,000 mcg Documented by: Dexamethasone (Dexamethasone 4 Mg/Ml Inj) 6 mg IVP Q24H [facility] Last Admin: 07/04/20 08:37 Dose: 6 mg Documented by: Dextrose (Dextrose 50% Syringe 50 Ml) 25 ml IVP ONCE PRN; Protocol PRN Reason: hypoglycemia protocol Dextrose (Dextrose 50% Syringe 50 Ml) 50 ml IVP PRN PRN; Protocol PRN Reason: hypoglycemia protocol Enoxaparin Sodium (Enoxaparin 60 Mg/0.6 Ml Syringe) 60 mg SUBCUT Q24H [facility] Folic Acid (Folic Acid 1 Mg Tablet) 1 mg PO DAILY [facility] Last Admin: 07/04/20 09:07 Dose: 1 mg Documented by: Glucagon (Glucagon 1 Mg/Ml Inj 1 Ml) 1 mg IM ONCE PRN; Protocol PRN Reason: Adult Acute Hypoglycemia Prot. Fentanyl 1,000 mcg/ Sodium (Chloride) 100 mls @ 0 mls/hr IV .Q0M TAJ; Protocol Last Admin: 07/04/20 21:47 Dose: 100 mcg/hr, 10 mls/hr Documented by: remdesivir (EUA) 100 mg/ (Sodium Chloride) 100 mls @ 100 mls/hr IV Q24H [facility] Propofol (Diprivan) 1,000 mg in 100 mls @ 0 mls/hr IV .Q0M [facility]; Protocol Last Titration: 07/05/20 00:30 Dose: 10 mcg/kg/min, 3.7 mls/hr Documented by: Vancomycin HCl 1,000 mg/ (Sodium Chloride) 250 mls @ 250 mls/hr IV Q24H [facility]; Protocol Last Admin: 07/05/20 00:07 Dose: 250 mls/hr Documented by: Azithromycin 500 mg/ Sodium (Chloride) 250 mls @ 250 mls/hr IV Q24H [facility]; Protocol Last Admin: 07/04/20 17:34 Dose: 250 mls/hr Documented by: Norepinephrine Bitartrate 4 mg (/ Dextrose) 254 mls @ 0 mls/hr IV .Q0M [facility]J; Protocol Last Titration: 07/05/20 00:30 Dose: 0 mcg/min, 0 mls/hr Documented by: Dextrose (D5w) 500 mls @ 100 mls/hr IV ONCE PRN; Protocol PRN Reason: Adult Acute Hypoglycemia Prot Sodium Chloride (Sodium Chloride 0.45%) 1,000 mls @ 100 mls/hr IV .Q10H [facility] Last Admin: 07/05/20 00:07 Dose: 100 mls/hr Documented by: Imipenem/Cilastatin Sodium 250 (mg/ Sodium Chloride) 100 mls @ 200 mls/hr IV Q6H [facility] Last Admin: 07/05/20 03:37 Dose: 200 mls/hr Documented by: Diltiazem HCl 125 mg/ Sodium (Chloride) 125 mls @ 0 mls/hr IV .Q0M [facility]; Protocol Last Titration: 07/05/20 04:12 Dose: Infused Documented by: Insulin Aspart (Insulin Aspart 100 Unit/1 Ml) 0 unit SUBCUT TIDWM [facility]; Protocol Last Admin: 07/04/20 17:34 Dose: 6 unit Documented by: Naloxone HCl (Naloxone 0.4 Mg/Ml Sdv) 0.1 mg IVP Q2M PRN PRN Reason: OPIATERV Nitroglycerin (Nitroglycerin 1 Gm/Inch Oint Pkt) 1 inch TOPICAL Q12H [facility] Stop: 07/05/20 13:14 Last Admin: 07/05/20 01:49 Dose: 1 inch Documented by: Ondansetron HCl (Ondansetron 2 Mg/Ml Sdv 2 Ml) 4 mg IVP Q8H PRN PRN Reason: vomiting, or N/V if npo Pantoprazole Sodium (Pantoprazole 40 Mg Sdv) 40 mg IVP Q24H [facility] Last Admin: 07/04/20 17:34 Dose: 40 mg Documented by: Sodium Bicarbonate (Sodium Bicarbonate 8.4% 1 Meq/Ml 50ml Syr) 50 meq IVP ONCE ONE Stop: 07/05/20 08:01 Valproic Acid (Valproic Acid 250 Mg/5 Ml Udc) 250 mg PO BID [facility] Last Admin: 07/04/20 17:34 Dose: 250 mg Documented by: Vitamin D (Cholecalciferol (Vitamin D3) 5,000 Unit Tablet) 5,000 unit PO DAILY [facility] Last Admin: 07/04/20 09:07 Dose: 5,000 unit Documented by: Zinc Gluconate (Zinc Gluconate 50 Mg Tablet) 100 mg PO DAILY [facility] Last Admin: 07/04/20 09:06 Dose: 100 mg Documented by: Vitals/I&O/Wt Last Vital Signs Temp 99.2 F 07/05/20 04:00 Pulse 81 07/05/20 06:15 Resp 15 07/05/20 05:14 BP 110/50 07/05/20 06:15 Pulse Ox 94 07/05/20 06:15 07/04/20 07/05/20 07/05/20 22:59 06:59 14:59 Intake Total 1384.272 / 2240.438 1852.082 / 4092.520 Output Total 475 / 475 Balance 909.272 / 6977.626 7504.082 / 3617.520 Weight last 48 hrs Weight 61.235 kg Physical Exam Narrative: EXAM NARRATIVE: intubated- fio2 65%, TV 450, peep 10, rate 14. on levo @ 8 sedated, intubated, heent- nc/at, eomi, anicteric, + NG tube neck supple lung ronchi and coarse b/l heart irreg irreg abd soft, nt, nd, +BS ext inc b/l edema + lieberman neuro- sedated, responds to pain Urinary Catheter Management^: Lieberman: Cath Placed During This Visit: yes Reason for Continuing Indwelling Catheter: Accurate Measurement of Urinary Output in Critically Ill Patients Urinary Catheter Date of Insertion: 07/03/20 Urinary Catheter Time of Insertion: 13:27 Data : 07/05/20 04:00 07/05/20 04:00 Micro: Microbiology 07/03/20 13:28 Urine Culture - Preliminary Urine,Clean Catch Gram Negative Rods 07/03/20 14:50 Gram Stain - Final Sputum - Endotracheal Tube Aspirate Sputum Culture - Preliminary 07/03/20 13:28 Bacterial Antigens - Final Urine,Voided A&P Additional A&P Information 75 yr old female h/o TIA, UIT, type 2 dm, GERD. recent dx of COVID-19. Pt admitted w/ septic shock and TODD, hypernatremia. 1. Oligoanuric renal failure. DDX is prerenal azotemia, ATN both from renal hypoperfusion and sepsis. -also concern for COVID-19 induced renal disease - u/a 3+ blood, 50-80 rbc, 5-10 wbc, sq epi- 15-25 -cr improved w/ ivf -d/c ivf -normal TSH, cpk Continue pressors to maintain MAP greater than 65 Avoid usual nephrotoxic agents Strict ins and outs -monitor k, cr, pulm status for dialysis needs -ct w/ left nephrolithiasis- no hydronephrosis 2. Hypernatremia na down to 149 from 160- use water via ng tube Every 12 BMP 3. Vent dependent respiratory failure Secondary to Covid- 19 and severe b/l PNA On combination antibiotics including vancomycin, Primaxin, azithromycin - renal dose. monitor vanco levels Dexamethasone Remdesivir -only of GFR above 30 ml/min Vent management per ICU team -d/c ivf -use water by ng tube 4. abg- 7.32/42/57- met and resp acidosis- rx infection, vent management per critical care -lactate improving from 4.8 to 2.2 5. leukocytosis - wbc improved to 26- monitor exam- monitor for abscess or other infectious source 6. hgb dropped from 15- 10- pt was likely very dry -check b12, folate- high MCV 7. high INR, D-dimer. can be covid-19 related or DIC 8. uric acid 10.5- repeat- likely from intravascular volume depletion 9. + trop per medicine- check echo, especially given high BNP 10. sob- start zaroxlyn prognosis guarded Interview performed via telemedicine with the aid of the bedside nurse. Attestations Medical Necessity Statement*: VDRF, COVID-19, a fib, improving TODD Time Spent in Patient Care: 16 - 35 minutes Coding Level of Care Code Acute Colorist Dyer for Michael Catalan
[2020-07-05 08:33] LABS: Glucose Point of Care 310 mg/dL (70-110)
[2020-07-05] MEDS: dexamethasone 4 mg/mL INJ 6 MG IVP (08:39)
[2020-07-05] MEDS: zinc gluconate 50 mg Tablet 100 MG PO (08:39)
[2020-07-05] MEDS: atorvastatin 40 mg Tablet 20 MG PO (08:40)
[2020-07-05] MEDS: ascorbic acid 500 mg Tablet PO (08:40)
[2020-07-05 08:41] LABS: Uric Acid 6.3 mg/dL (2.4-5.7)
[2020-07-05] MEDS: cholecalciferol (vitamin D3) 5,000 unit Tablet 5000 UNIT PO (08:41)
[2020-07-05] MEDS: folic acid 1 mg Tablet PO (08:41)
[2020-07-05] MEDS: cyanocobalamin 1,000 mcg Tablet 1000 MCG PO (08:41)
[2020-07-05] MEDS: aspirin 81 mg Chew Tablet PO (08:41)
[2020-07-05] MEDS: valproic acid 250 mg/5 mL UDC PO ×2 (08:41→17:38)
[2020-07-05] MEDS: metOLazone 5 MG Tablet PO (08:42)
[2020-07-05] MEDS: sodium bicarbonate 8.4% 1 mEq/mL 50mL Syr 50 MEQ IVP (08:42)
--- NOTE | 2020-07-05 09:02 | PC.RESP ---
PULMONARY REHAB INFORMATION SENT TO PATIENT.
[2020-07-05 11:21] LABS: Vancomycin Random 18.5 ug/mL (20.0-40.0)
[2020-07-05 11:36] LABS: Glucose Point of Care 318 mg/dL (70-110)
--- NOTE | 2020-07-05 11:54 | P.PN_ITS ---
Subjective Subjective: Interval history: Patient had a couple of A. fib events this morning, remains on Levophed 8, remains on the ventilator, intubated, sedated, FiO2 of 60%, PEEP of 10, tidal volume 450, urine output is a bit lackluster at 450, but creatinine is tending down to 1.1, afebrile, Vitals/I&O/Wt Last Vital Signs Temp 98.9 F 07/05/20 07:00 Pulse 121 H 07/05/20 10:15 Resp 16 07/05/20 11:07 BP 96/60 07/05/20 10:15 Pulse Ox 90 07/05/20 10:15 07/04/20 07/05/20 07/05/20 22:59 06:59 14:59 Intake Total 1384.272 / 2240.438 1952.082 / 4192.520 1166.667 / 1166.667 Output Total 475 / 475 Balance 909.272 / 0241.760 1866.082 / 3717.520 1166.667 / 1166.667 Weight last 48 hrs Weight 61.235 kg Physical Exam Narrative: EXAM NARRATIVE: Intubated sedated Const: COMMON NORMALS: no acute distress GENERAL APPEARANCE: ill appearing NUTRITIONAL APPEARANCE: thin OTHER: Intubated, sedated, on the ventilator HENMT: COMMON NORMALS: normocephalic HEAD & SCALP: normocephalic Eye: OTHER: Bilateral pupils, minimally reactive to light Neck/C-Spine: COMMON NORMALS: no JVD OTHER: Right central line in place, left subclavian artery injury site, has a pressure dressing on top, no skin changes Lymph: LYMPHATIC: no lymphadenopathy noted Chest: COMMONS NORMALS: normal inspection of the chest Resp: COMMON NORMALS: normal respiratory effort, No retractions, No use of acc essory muscles and clear to auscultation bilaterally AUSCULTATION: clear to auscultation bilaterally, crackles, rales and wheezes Cardio: COMMON NORMALS: no JVD, S1 normal heart sound present, S2 normal heart sound present, No gallops present (Cardio), No clicks present (Cardio) and No murmurs present (Cardio) RATE: tachycardic RHYTHM: abnormal rhythm irregularly irregular HEART SOUNDS: S1 normal heart sound present and S2 normal heart sound present GI: COMMON NORMALS: Normal to inspection, nondistended, normoactive bowel sounds present, Soft to palpation, non-tender, No hepatosplenomegaly present, no masses and no bruits PALPATION: Yes Soft to palpation and Yes No hepatosplenomegaly present Extremity: COMMON NORMALS: no pedal edema Neuro: OTHER: Intubated, sedated Skin: NARRATIVE SKIN EXAM: Left arm, Levophed infiltration site, a bit erythematous, good flushing of the skin, borders marked, Urinary Catheter Management^: Kowalski: Cath Placed During This Visit: yes Reason for Continuing Indwelling Catheter: Accurate Measurement of Urinary Output in Critically Ill Patients Urinary Catheter Date of Insertion: 07/03/20 Urinary Catheter Time of Insertion: 13:27 Sepsis: Is patient septic: Yes Focused sepsis exam performed: Yes Date exam was performed: 07/05/20 Time exam was performed: 10:00 Data : 07/05/20 04:00 07/05/20 04:00 Micro: Microbiology 07/03/20 14:50 Gram Stain - Final Sputum - Endotracheal Tube Aspirate Sputum Culture - Final Streptococcus pneumoniae 07/05/20 09:00 Blood Culture - Preliminary Blood SPECIMEN COLLECTED 07/05/20 08:40 Blood Culture - Preliminary Blood SPECIMEN COLLECTED 07/03/20 13:28 Urine Culture - Preliminary Urine,Clean Catch Gram Negative Rods 07/03/20 13:28 Bacterial Antigens - Final Urine,Voided A&P Assessment and plan (1) Acute respiratory failure with hypoxia: -Secondary to COVID-19 pneumonia, secondary bacterial infection, UTI, pulmonary edema -Evidence of multiorgan failure -Evidence of DIC -A. fib with RVR -Evidence of septic shock -CT of the chest shows bilateral lower lobe atelectasis and pneumonia, minimal peripheral pulmonary infiltrates PLAN: -Admit to viral ICU -Patient is a full code -Right central line in place, x-ray no pneumothorax, tip over SVC -Will start on heparin drip tonight for hypercoagulability associate with COVID- 19, its been more than 48 hours since her left subclavian artery injury -Patient's DPOA is Sukh Andrade counts [id number], I have already updated on patient's status -Prognosis is guarded, status is critical -On the ventilator, minimize PEEP, minimize FiO2: Currently on 60% FiO2, 450 tidal volume, PEEP of 10, will try to titrate it down -pH this morning 7.32, give 1 amp of bicarb -Fentanyl and propofol for sedation -Decadron -Remdesivir on hold, her GFR has improved to 44, but as remdesivir is renally cleared her urine output remains lackluster, I would continue to hold -Broad-spectrum antibiotics vancomycin, Primaxin, azithromycin -tube feeds, Jevity, low-dose sliding scale, maintain blood sugars between 180- 225 -Fluids have been stopped for hypovolemic hyponatremia, urine output 400 cc, creatinine 1.1 plan is to give her a diuretic such as metolazone, and see if her kidneys respond, if she does not respond she might require more diuretics and/or dialysis -On Cardizem drip for A. fib with RVR, start heparin drip as above - Levophed, maintain MAP greater than 65 -Follow urine cultures, blood cultures, respiratory cultures, urine bacterial antigens -Follow serial inflammatory markers -Daily EKGs to monitor QTC -Consult pulmonary service Status: Acute (2) Pneumonia due to 2019 novel coronavirus: Status: Acute (3) Acute renal insufficiency: -Acute kidney injury, secondary to sepsis, secondary to dehydration, creatinine 1.1 -Not performed cc, continue to monitor as above Status: Acute (4) Secondary bacterial pneumonia: Status: Acute (5) Septic shock: Status: Acute (6) Lactic acidosis: Status: Acute (7) NSTEMI (non-ST elevated myocardial infarction): -Likely supply demand ischemia from acute respiratory failure, septic shock, lactic acidosis -Continue aspirin 81 mg, atorvastatin 40 mg -Echocardiogram shows EF of 55%, segmental wall motion analysis difficult to analyze because of arrhythmia, however no gross wall motion abnormalities were noted -Continue telemetry monitoring Status: Acute (8) UTI (urinary tract infection): Primaxin as above, CT abdomen pelvis shows left nephrolithiasis, small stone in proximal left ureter, no evidence hydronephrosis, Status: Acute (9) Dehydration with hypernatremia: -Hypovolemic hypernatremia - Status: Acute (10) Transaminitis: Status: Acute (11) Type 2 diabetes mellitus: A1c, moderate dose sliding scale Status: Acute (12) DIC (disseminated intravascular coagulation): Status: Acute (13) Atrial fibrillation with RVR: -Cardizem drip as above -Hold anticoagulation given subclavian injury Status: Acute (14) Injury of left subclavian artery: -ct chest showed: The catheter entering along the left side of the neck is intra arterial in position with its tip in the ascending thoracic aorta. -us LUE showed;Patent left subclavian, axillary, brachial, distal radial and ulnar arteries. The proximal and mid brachial, radial and ulnar arteries were not visualized Possibly no significant arterial obstruction, based on the above findings. Technically somewhat limited study -Site looks clean and dry, no active bleeding pressure dressing applied -It has been more than 48 hours since her arterial injury, will resume heparin drip tonight -No active bleeding around site -unFortunately Dr. Dias is not on for cardiothoracic surgery Status: Acute Attestations Medical Necessity Statement*: Patient requires ICU level hospitalization for acute hypoxic respiratory failure secondary COVID-19, multiorgan failure, septic shock, DIC Coding Level of Care Code Acute Hims Coder for [facility] Fwd Diagnoses Acute respiratory failure with hypoxia J96.01 Pneumonia due to 2019 novel coronavirus U07.1; J12.89 Acute renal insufficiency N28.9 Secondary bacterial pneumonia J15.9 Septic shock A41.9; R65.21 Lactic acidosis E87.2 NSTEMI (non-ST elevated myocardial infarction) I21.4 UTI (urinary tract infection) N39.0 Dehydration with hypernatremia E87.0 Transaminitis R74.01 Type 2 diabetes mellitus E11.9 DIC (disseminated intravascular coagulation) D65 Atrial fibrillation with RVR I48.91 Injury of left subclavian artery S25.102A Sepsis Event Note Evaluation Current stage of sepsis: severe sepsis Persistent hypotension due to sepsis/infection: MAP < 65 mmHg Possible source: pulmonary and genitourinary Focused Exam Vital Signs Temp Pulse Resp BP Pulse Ox 07/05/20 11:07 16 07/05/20 10:15 121 H 96/60 90 07/05/20 10:00 113 H 127/63 90 07/05/20 09:45 135 H 100/65 100 07/05/20 09:30 108 H 112/58 99 07/05/20 09:20 15 07/05/20 09:15 95 105/56 94 07/05/20 09:00 93 110/51 92 07/05/20 08:45 97 108/61 94 07/05/20 08:30 93 111/56 94 07/05/20 08:15 84 104/60 94 07/05/20 08:00 84 116/62 95 07/05/20 07:57 85 15 95 07/05/20 07:45 81 117/59 95 07/05/20 07:30 80 116/60 95 07/05/20 07:15 84 112/59 95 07/05/20 07:00 98.9 F 85 110/55 94 07/05/20 06:45 85 111/62 94 07/05/20 06:30 83 111/58 94 07/05/20 06:15 81 110/50 94 07/05/20 06:00 81 111/57 93 07/05/20 05:45 80 107/55 94 07/05/20 05:30 85 114/67 89 L 07/05/20 05:15 88 89/66 95 07/05/20 05:14 15 07/05/20 05:00 82 112/60 95 07/05/20 04:45 84 104/62 95 07/05/20 04:30 80 102/56 95 07/05/20 04:15 85 107/56 94 07/05/20 04:00 99.2 F 87 95/56 92 07/05/20 03:45 90 114/59 92 07/05/20 03:30 83 107/59 95 07/05/20 03:15 83 111/55 94 07/05/20 03:00 81 109/58 94 07/05/20 02:45 84 102/54 93 07/05/20 02:30 85 98/56 93 07/05/20 02:15 91 14 112/59 92 07/05/20 02:00 86 104/54 94 07/05/20 01:45 85 119/53 95 07/05/20 01:30 86 107/49 95 07/05/20 01:15 82 113/48 94 07/05/20 01:00 86 101/58 94 07/05/20 00:52 99 07/05/20 00:45 78 16 105/52 91 07/05/20 00:30 103/54 89 L 07/05/20 00:15 83 100/65 93 07/05/20 00:03 14 07/05/20 00:00 98.5 F 90 113/63 90 Cardiovascular exam: Present tachycardia and irregularly irregular Capillary refill: < 3 Seconds Peripheral pulse strength: 1+ Faint Peripheral pulse location: Pedal Skin exam: pale Date exam was performed: 07/05/20 Time exam was performed: 11:59 Problem List (1) Acute respiratory failure with hypoxia: Status: Acute (2) Pneumonia due to 2019 novel coronavirus: Status: Acute (3) Acute renal insufficiency: Status: Acute (4) Secondary bacterial pneumonia: Status: Acute (5) Septic shock: Status: Acute (6) Lactic acidosis: Status: Acute (7) NSTEMI (non-ST elevated myocardial infarction): Status: Acute (8) UTI (urinary tract infection): Status: Acute (9) Dehydration with hypernatremia: Status: Acute (10) Transaminitis: Status: Acute (11) Type 2 diabetes mellitus: Status: Acute (12) DIC (disseminated intravascular coagulation): Status: Acute (13) Atrial fibrillation with RVR: Status: Acute (14) Injury of left subclavian artery: Status: Acute
[2020-07-05] MEDS: propofol 1,000 MG/100 ML INJ 3.7 MG IV (14:39)
--- NOTE | 2020-07-05 16:46 | P.CONIM_ITS ---
Providers/Reason For Consult Consulting Physican/Specialty*: Piyush Eisenberg MD/Pulmonary Critcal care Reason for Consult*: Ventilator management Attending Physician: Omero Sanford MD History of Present Illness History of Present Illness Naida Yap is a 75 year old female with PMH of TIA, frequent UTIs, COPD, HTN, type 2 DM, GERD, chronic back pain, depression and anxiety, possible CVA requiring transfer to [place] on June 14, 2019 presented to [facility] due to complaints of confusion, hypoxia, shortness of breath, cough, fevers, fatigue, malaise. Patient tested positive at [facility], 3 weeks ago from COVID-19, she was on 5 L at some point, since then she would have intermittent shortness of breath, fatigue, malaise, poor appetite. on 07/03/2020 morning patient had increased shortness of breath, increased confusion, was not responding appropriately, desat to the low 80s on 15 L, complaints of shortness of breath. According to intermediate, patient has had a slow decline over the last few months, her mentation has slowly declined, appetite has slowly declined, she is less mobile, she has become less functional. Over the last 3 weeks, she is has had a significant decline in her functioning, she has not been eating well, less mobile, not responding appropriate, more confused. In the ER, patient was found to have decreased mental status, decreased respiratory rate, so she was intubated by the ER physician and admitted to Viral ICU. Today is seen in ICU intubated and sedated. on pressors - levophed 7 On cmv 450/14/10/FIO2 60% -Responding to Lasix and started putting urine output Review of Systems General: Reports: ROS unobtainable due to endotracheal tube, ROS unobtainable due to medical condition and ROS unobtainable due to mental status Meds/Allergies Home Medications and Allergies Home Medications Medication Instructions Recorded Confirmed Last Taken Type T-Gel Shampoo See Rx Instructions .ROUTE .COMPLEX 01/15/20 07/03/20 07/02/20 History amlodipine [Norvasc] 5 mg PO DAILY 01/15/20 07/03/20 07/03/20 History aspirin [Aspir-81] 81 mg PO DAILY 01/15/20 07/03/20 07/03/20 History atorvastatin 20 mg PO DAILY 01/15/20 07/03/20 07/02/20 History benztropine 1 mg PO DAILY 01/15/20 07/03/20 07/03/20 History bisacodyl 10 mg MT DAILY PRN 01/15/20 07/03/20 06/28/20 History cyanocobalamin (vitamin B-12) 1,000 mcg PO DAILY 01/15/20 07/03/20 07/03/20 History divalproex 250 mg PO BID 01/15/20 07/03/20 07/03/20 History docusate sodium [Colace] 100 mg PO BID PRN 01/15/20 07/03/20 07/03/20 History fluticasone propion-salmeterol 1 inh INHALATION BID 01/15/20 07/03/20 07/03/20 History [Advair Diskus] fluticasone propionate [Flonase 2 spray INTRANASAL DAILY 01/15/20 07/03/20 07/03/20 History Allergy Relief] folic acid 1 mg PO DAILY 01/15/20 07/03/20 07/03/20 History memantine 5 mg PO BID 01/15/20 07/03/20 07/03/20 History metformin 500 mg PO DAILY 01/15/20 07/03/20 07/03/20 History metoprolol tartrate 25 mg PO DAILY 01/15/20 07/03/20 07/03/20 History mirtazapine 15 mg PO DAILY 01/15/20 07/03/20 07/02/20 History montelukast [Singulair] 10 mg PO DAILY 01/15/20 07/03/20 07/02/20 History omeprazole 20 mg PO DAILY 01/15/20 07/03/20 07/03/20 History sennosides-docusate sodium 1 tab-cap PO BID PRN 01/15/20 07/03/20 06/29/20 History [Senna-S] venlafaxine 100 mg PO BID 01/15/20 07/03/20 07/03/20 History ascorbic acid (vitamin C) [Vitamin 1 tab PO DAILY 07/03/20 07/03/20 07/03/20 History C] azithromycin 250 mg PO DAILY 07/03/20 07/03/20 07/03/20 History cholecalciferol (vitamin D3) 125 mcg PO DAILY 07/03/20 07/03/20 07/03/20 History [Vitamin D3] dexamethasone 6 mg PO DAILY 07/03/20 07/03/20 07/03/20 History zinc 100 mg PO DAILY 07/03/20 07/03/20 07/03/20 History Allergies Allergy/AdvReac Type Severity Reaction Status Date / Time cephalexin Allergy Unknown Verified 01/15/20 14:36 enoxaparin [From Lovenox] Allergy Unknown Verified 01/15/20 14:36 Penicillins Allergy Unknown Verified 01/15/20 14:36 Sulfa (Sulfonamide Allergy Unknown Verified 01/15/20 14:36 Antibiotics) sulfamethoxazole Allergy Unknown Verified 01/15/20 14:36 [From Bactrim] trimethoprim Allergy Unknown Verified 01/15/20 14:36 Current Medications Current Medications Generic Name Dose Route Start Last Admin Trade Name Freq PRN Reason Stop Dose Admin Albuterol/Ipratropium 3 ml 07/05/20 00:43 07/05/20 07:57 Ipratropium-Albuterol 3 Ml Neb INHALATION 3 ml Q4H.RESPIRATORY PRN Administration SHORTNESS OF BREATH Ascorbic Acid 500 mg 07/04/20 09:00 07/05/20 08:40 Ascorbic Acid 500 Mg Tablet PO 500 mg DAILY TAJ Administration Aspirin 81 mg 07/04/20 09:00 07/05/20 08:41 Aspirin 81 Mg Chew Tablet PO 81 mg DAILY TAJ Administration Atorvastatin Calcium 20 mg 07/04/20 09:00 07/05/20 08:40 Atorvastatin 40 Mg Tablet PO 20 mg DAILY TAJ Administration Cyanocobalamin 1,000 mcg 07/04/20 09:00 07/05/20 08:41 Cyanocobalamin 1,000 Mcg Tablet PO 1,000 mcg DAILY TAJ Administration Dexamethasone 6 mg 07/04/20 08:00 07/05/20 08:39 Dexamethasone 4 Mg/Ml Inj IVP 6 mg Q24H TAJ Administration Folic Acid 1 mg 07/04/20 09:00 07/05/20 08:41 Folic Acid 1 Mg Tablet PO 1 mg DAILY TAJ Administration Fentanyl 1,000 mcg/ Sodium 100 mls @ 0 mls/hr 07/03/20 13:15 07/05/20 09:16 Chloride IV 100 mcg/hr .Q0M TAJ 10 mls/hr Administration Protocol Per Protocol Propofol 1,000 mg in 100 mls @ 0 mls/hr 07/03/20 16:55 07/05/20 14:39 Diprivan IV 10 mcg/kg/min .Q0M TAJ 3.7 mls/hr Administration Protocol Per Protocol Vancomycin HCl 1,000 mg/ 250 mls @ 250 mls/hr 07/03/20 23:30 07/05/20 00:07 Sodium Chloride IV 250 mls/hr Q24H TAJ Administration Protocol As Directed Azithromycin 500 mg/ Sodium 250 mls @ 250 mls/hr 07/03/20 16:55 07/04/20 17:34 Chloride IV 250 mls/hr Q24H TAJ Administration Protocol Norepinephrine Bitartrate 4 mg 254 mls @ 0 mls/hr 07/03/20 16:55 07/05/20 07:47 / Dextrose IV 8 mcg/min .Q0M TAJ 30.5 mls/hr Titration Protocol Per Protocol Imipenem/Cilastatin Sodium 250 100 mls @ 200 mls/hr 07/04/20 03:30 07/05/20 14:39 mg/ Sodium Chloride IV 200 mls/hr Q6H TAJ Administration Diltiazem HCl 125 mg/ Sodium 125 mls @ 0 mls/hr 07/04/20 11:00 07/05/20 10:15 Chloride IV 15 mg/hr .Q0M TAJ 15 mls/hr Administration Protocol Per Protocol Metolazone 5 mg 07/05/20 09:00 07/05/20 08:42 Metolazone 5 Mg Tablet PO 5 mg DAILY TAJ Administration Pantoprazole Sodium 40 mg 07/03/20 16:55 07/04/20 17:34 Pantoprazole 40 Mg Sdv IVP 40 mg Q24H TAJ Administration Valproic Acid 250 mg 07/04/20 09:15 07/05/20 08:41 Valproic Acid 250 Mg/5 Ml Udc PO 250 mg BID TAJ Administration Vitamin D 5,000 unit 07/04/20 09:00 07/05/20 08:41 Cholecalciferol (Vitamin D3) 5,000 Unit Tablet PO 5,000 unit DAILY TAJ Administration Zinc Gluconate 100 mg 07/04/20 09:00 07/05/20 08:39 Zinc Gluconate 50 Mg Tablet PO 100 mg DAILY TAJ Administration PFSH Acute PFSH: Social History Smoking and tobacco status: unknown if ever smoked Vitals/I&O/Wt Last Vital Signs Temp 98.9 F 07/05/20 07:00 Pulse 90 07/05/20 16:00 Resp 14 07/05/20 16:09 BP 109/56 07/05/20 16:00 Pulse Ox 92 07/05/20 16:00 07/05/20 07/05/20 07/05/20 06:59 14:59 22:59 Intake Total 1951.082 / 4192.520 1219.022 / 1219.022 Output Total 300 / 300 Balance 1951.082 / 3717.520 919.022 / 919.022 Physical Exam Narrative: EXAM NARRATIVE: PHYSICAL EXAM: General: lying in bed, sedated and intubated. HEENT:NCAT, PERRLA, EOMI Neck: Supple Lungs: Clear, Heart: s1/s2, RRR Abd: soft, NT, ND, BS + Normoactive Extremities: No edema EMPLOYMENT DIRECTOR: sedated and limited EMPLOYMENT DIRECTOR exam possible. SKIN: no rash LDA: # CVC: Right IJ line 07/04/2020 #Urine Lieberman 07/03/2020 Urinary Catheter Management^: Lieberman: Cath Placed During This Visit: yes Reason for Continuing Indwelling Catheter: Accurate Measurement of Urinary Output in Critically Ill Patients Urinary Catheter Date of Insertion: 07/03/20 Urinary Catheter Time of Insertion: 13:27 Data Micro: Micro: Microbiology 07/03/20 13:28 Urine Culture - Fi nal Urine,Clean Catch Pseudomonas aer uginosa 07/03/20 14:50 Gram Stain - Final Sputum - Endotrac heal Tube Aspirate Sputum Culture - F inal Streptococcus p neumoniae 07/05/20 09:00 Blood Culture - Pr eliminary Blood SPECIMEN [facility] 07/05/20 08:40 Blood Culture - Pr eliminary Blood SPECIMEN [facility] Other Data: Other data: Reviewed all the labs, imaging in [facility] CT chest abdomen pelvis 07/03/2020: 1. The catheter entering along the left side of the neck is intra arterial in position with its tip in the ascending thoracic aorta. 2. 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 3. Small bilateral pleural effusions. 4. Bilateral lower lobe atelectasis and pneumonia. 5. Minimal peripheral pulmonary infiltrates which are nonspecific and could represent some infectious or inflammatory disease including COVID-19. 1. Left nephrolithiasis 2. Small stone in the proximal left ureter. 3. L3 compression fracture probably chronic. Correlate with clinical findings Chest x-ray 07/05/2020: 1. Bilateral pulmonary infiltrates show little change. 2. ET tube ending about 1.5 cm above the thomas. Suggest retraction of the tube 2 to 3 cm for optimal position. 3. Left lower lobe atelectasis. Echo 07/04/2020: Possibly normal LV size and ejection fraction. (55%) Segmental wall motion analysis difficult because of the arrhythmia. However no gross wall motion of normalities were noted. Thickened aortic valve. Mild mitral annular calcification. [id number] tricuspid valve regurgitation. Estimated pulmonary artery peak systolic pressure 36 mmHg. This could be an underestimation because of the poor Doppler signals No pericardial effusion. Technically difficult study because of the poor ultrasonic window. (The subcostal views were obtained) A&P Assessment and plan (1) Pneumonia due to 2019 novel coronavirus: Status: Acute (2) Atrial fibrillation with RVR: Status: Acute (3) Type 2 diabetes mellitus: Status: Acute Qualifiers: Diabetes mellitus assisted insulin use: unspecified long filler cigar roller machine insulin use status Diabetes mellitus complication status: with other specified complication Qualified Code(s): E11.69 - Type 2 diabetes mellitus with other specified complication (4) NSTEMI (non-ST elevated myocardial infarction): Status: Acute (5) Septic shock: Status: Acute (6) Acute respiratory failure with hypoxia: Status: Acute (7) Acute renal insufficiency: Status: Acute (8) DIC (disseminated intravascular coagulation): Status: Acute (9) Hypernatremia: Status: Acute Assessment and plan: 75 year old female with PMH of TIA, frequent UTIs, COPD, HTN, type 2 DM, GERD, chronic back pain, depression and anxiety, possible CVA requiring transfer to [place] on June 14, 2019 admitted to viral ICU for acute hypoxic respiratory failure secondary to pneumonia, acute hypernatremia secondary to sepsis related dehydration and acute renal failure NEURO: #Altered mental status on presentation could be due to hypernatremia due to dehydration/sepsis - Recommended to gradually correct sodium #sedation -propofol, fentanyl PULM: #Acute hypoxic respiratory failure likely due to strep pneumonia -Recently tested positive for Covid 3 weeks back in intermediate -Intubated on arrival to ER for sats initially 80s on 15 L -CMV 450/14/PEEP 10 / 60% -ABG today morning 7.3 2/42/57/21/ -CXR Bilateral pulmonary infiltrates show little change. -BNP 1245 today -Covered with remdesivir, vancomycin, azithromycin, dexamethasone, imipenem -Endotracheal tube aspirate strep pneumonia sensitive to penicillin but patient is penicillin allergic -Once patient is hemodynamically stable and vent requirements come down we can try awakening trial and breathing trial and plan to extubate accordingly -Try to keep patient even to negative - CVS: #Shock sepsis versus cardiogenic (NSTEMI) #Troponinemia-could be secondary to sepsis/TODD/NSTEMI -Currently on Levophed 7-Target map> 65 -BNP 1245 today -Aspirin, Lipitor -Echo ejection fraction 55% with moderate TR and increased pulmonary artery pressure 36 -On heparin drip #A. fib with RVR -Diltiazem-rate controlled -On heparin drip-monitor APTT every 6 hours and adjust heparin dose GI: -Tube feeding Jevity at 60 mL/h -Started on bowel regimen senna at bedtime RENAL: #TODD-likely due to hypoperfusion secondary to dehydration/sepsis/NSTEMI #Hypovolemic hyponatremia likely secondary to sepsis related dehydration -On pressors Levophed 7 with map goal greater than 65 -Improving renal functions -Obtaining urine electrolytes after being on diuretics is of limited value-to differentiate prerenal VS renal -Please send urine and serum osmolarity -Strict I/O -Continue lieberman cath -Avoid nephrotoxins -Replace lytes prn -Renal following #Renal stones -CT abdomen pelvis shows left nephrolithiasis, small stone in proximal left ureter, no evidence hydronephrosis, HEM: H&H stable Plts stable,will trend Coagulation profile suggestive of DIC DVT prophylaxis: Patient on heparin drip; patient has a reported history of allergy to Lovenox unknown type. Recent injury to left carotid artery while placing central line-currently no bleeding noted ENDO: Hyperglycemia -sugars 250-300 on medium dose SSI Recommended to increase SSI to high-dose and check POCT Q6H -If consecutive readings of greater than 400 switch to IV insulin ID: - Severe sepsis secondary to strep pneumonia and Pseudomonas UTI -afebrile,Tmax 99.2, leukocytosis 20 6.4K slightly better than yesterday -Lactic acidosis improving -Procalcitonin high -Endotracheal aspirate positive for strep pneumonia -Recent COVID-19 test +3 weeks ago in intermediate-repeat COVID-19 testing -Elevated inflammatory markers -Coagulation profile suggestive of DIC with fibrin degradation products positive -Treat underlying pneumonia with imipenem, azithromycin, dexamethasone -Once renal functions improved can start on remdesivir -Send for MRSA nares and if negative can DC vancomycin Recommendations conveyed to hospitalist covering the patient Consult Attestations Medical Necessity Statement: Septic shock and acute hypoxic respiratory failure secondary to strep pneumonia, acute hypernatremia secondary to sepsis related dehydration and acute renal failure Time Spent in Patient Care: Greater than 35 minutes (>than 50% of time spent in counselling and/or direct pt care on unit) . Coding Level of Care Code Acute Transport Assistant for [facility] Fwd Diagnoses Pneumonia due to 2019 novel coronavirus U07.1; J12.89 Atrial fibrillation with RVR I48.91 Type 2 diabetes mellitus E11.69 Diabetes mellitus assisted insulin use: unspecified long filler cigar roller machine insulin use status Diabetes mellitus complication status: with other specified complication NSTEMI (non-ST elevated myocardial infarction) I21.4 Septic shock A41.9; R65.21 Acute respiratory failure with hypoxia J96.01 Acute renal insufficiency N28.9 DIC (disseminated intravascular coagulation) D65 Hypernatremia E87.0
[2020-07-05 17:27] LABS: Alanine Aminotransferase 10 U/L (0-33); Albumin Level 2.3 g/dL (3.5-5.2); Alkaline Phosphatase 114 IU/L (35-105); Anion Gap 13.1 (5-19); Aspartate Amino Transferase 24 U/L (0-32); Blood Urea Nitrogen 51 mg/dL (8-23); Calcium 7.8 mg/dL (8.5-10.5); Carbon Dioxide 25 mmol/L (22-29); Chloride 113 mmol/L (98-107); Globulin 2.7 g/dL (1.3-4.6); Glucose 279 mg/dL (65-115); Osmolality Calculated 328 mOsm/kg (285-295); Potassium 4.1 mmol/L (3.5-5.1); Sodium 147 mmol/L (136-145); Total Bilirubin 0.2 mg/dL (0.15-1.2)
[2020-07-05 17:32] LABS: Glucose Point of Care 266 mg/dL (70-110)
[2020-07-05] MEDS: azithromycin 500 MG in sodium chloride 0.9% 250 ML 250 MG IV (17:35)
[2020-07-05] MEDS: pantoprazole 40 mg SDV IVP (17:37)
[2020-07-05] MEDS: heparin drip 25,000 UNIT/500 ML PREMIX 17 UNIT IV (17:39)
--- NOTE | 2020-07-05 19:00 | PC.NURSE ---
Upon assuming care of patient the following gtts were infusing: cardizem at 10 mg/hr fentanyl at 100 mcg/hr heparin at 17 mL/ hr levophed at 7 mcg/min propofol at mcg/kg/min Changes the MAR were to reflect the doses/ ratesat which the gtts were running up assuming care of the patient. Changes made from 1900 to 0700 will reflect the changes made on this Rs shift.
--- NOTE | 2020-07-05 20:24 | PC.NURSE ---
1900 Rounding, Turning, Assessment form comments: Patient's ability to tolerate turning is poor due to her de-saturating with turning.
[2020-07-05] MEDS: sennosides-docusate Tablet 1 TAB PO (20:54)
--- NOTE | 2020-07-05 21:45 | PC.NURSE ---
Patient converted to SR with a HR in the 70s-80s. Will continue to titrated cardizem gtt to keep HR less than 100.
[2020-07-06] VITALS (108 sets, daily range): BP systolic 89–144; BP diastolic 50–93; PULSE 68–109; RESP 14–18; TEMP 36–37.2; O2SAT 88–99
[2020-07-06 00:11] LABS: Glucose Point of Care 294 mg/dL (70-110)
--- NOTE | 2020-07-06 01:00 | PC.NURSE ---
Patient's PTT noted. Heparin gtt adjusted per protocol. Will order repeat PTT at 0700.
[2020-07-06 01:08] LABS: Partial Thromboplastin Time 85.3 SECONDS (23.9-36.7)
[2020-07-06 02:11] LABS: Vancomycin Trough 11.3 ug/mL (10-15)
[2020-07-06 04:38] LABS: ABG PCO2 46.4 mmHg (35-45); ABG PH Result 7.38 (7.35-7.45); Arterial Blood Gas Hematocrit 24.1 % (37-47); Base Excess ABG 1.9 mmol/L (-2.0-2.0); Blood Gas Allen Test Pos; Blood Gas Sample Site Radial, right; Blood Gas Sample Type Arterial; Blood Gas Tidal Volume 0.45; HCO3 ABG 27.4 mmol/L (22-26); Oxygen Device VENT; PO2 ABG 67.2 mmHg (80.0-100.0)
[2020-07-06 04:38] LABS: Lactic Sepsis W/Reflex 2.2 mmol/L (0.5-2.2)
[2020-07-06 05:02] LABS: Basophils % 0.2 %; Hematocrit 26.7 % (37.0-47.0); Hemoglobin 7.9 g/dL (11.5-15.3); Lymphocytes # 1.6 10^3/uL (0.8-4.8); Lymphocytes % 8.5 %; Mean Corpuscular HGB Conc 29.6 g/dL (30.0-36.0); Mean Corpuscular Hemoglobin 30.6 pg (28.0-34.0); Mean Corpuscular Volume 103.5 fL (81-99); Mean Platelet Volume 13.5 fL (7.4-10.4); Monocytes # 1.1 10^3/uL (0.2-0.9); Monocytes % 5.9 %; Neutrophils # 15.03 10^3/uL (1.8-7.7); Neutrophils % 78.3 %; Nucleated Red Blood Cells # 0.1 /100WBC; Nucleated Red Blood Cells % 0.6 %; Platelet Count 196 10^3/cmm (130-400); Red Blood Count 2.58 10^6/uL (4.1-5.3); Red Cell Distribution Width 15.2 % (12.1-15.1); White Blood Count 19.2 10^3/uL (4.0-10.0)
[2020-07-06 05:25] LABS: Alanine Aminotransferase 10 U/L (0-33); Alkaline Phosphatase 85 IU/L (35-105); Anion Gap 11.3 (5-19); Aspartate Amino Transferase 24 U/L (0-32); Blood Urea Nitrogen 48 mg/dL (8-23); C Reactive Protein 65.1 mg/L (0.0-4.9); Calcium 7.6 mg/dL (8.5-10.5); Carbon Dioxide 27 mmol/L (22-29); Chloride 114 mmol/L (98-107); Globulin 2.5 g/dL (1.3-4.6); Glucose 220 mg/dL (65-115); Magnesium 2.2 mg/dL (1.7-2.3); Osmolality Calculated 325 mOsm/kg (285-295); Phosphorus 1.8 mg/dL (2.5-4.5); Potassium 4.3 mmol/L (3.5-5.1); Sodium 148 mmol/L (136-145); Total Bilirubin 0.2 mg/dL (0.15-1.2); Total Protein 4.5 g/dL (6.6-8.7)
[2020-07-06 05:35] LABS: INR 1.31 (0.8-1.2)
[2020-07-06 05:35] LABS: Glucose Point of Care 193 mg/dL (70-110)
[2020-07-06 05:36] LABS: Fibrinogen 381 mg/dL (174-498)
[2020-07-06 05:39] LABS: D Dimer 2.96 ug/mIFEU (0-0.59)
[2020-07-06 05:40] LABS: Reflex Lactate Order REFLEX LACTIC ORDERD
--- NOTE | 2020-07-06 06:00 | ECG_ITS ---
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 Measurements Intervals [place] Rate: 89 P: 68 WI: 135 QRS: 51 QRSD: 86 T: 60 QT: 392 QTc: 477 Interpretive Statements SINUS RHYTHM LOW QRS VOLTAGE IN PRECORDIAL LEADS [QRS DEFLECTION < 1.0 mV IN CHEST LEADS] Compared to ECG 07/05/2020 08:11:36 Myocardial infarct finding no longer present Electronically Signed On 07-06-2020 21:55:24 PRIVATE DUTY RN by Blessing Bertrand M.D. [email or web address]
[2020-07-06 06:51] LABS: NT Pro B Type Natriuretic Pept 758 pg/mL (0-125); Procalcitonin 2.77 ng/mL (0-0.5)
--- NOTE | 2020-07-06 07:00 | XR_ITS ---
WS: [id number] Exam: XR chest 1V portable [id number] Date/Time of Exam: 07/06/2020 7:02 AM Reason For Exam: sob Comparison 07/05/2020. Bibasal infiltrates show us minimal improvement. The lungs are fully inflated. Heart size is normal. Endotracheal tube ends at the thomas and should be retracted 3 to 4 cm. Right-sided IJ catheter ends at the cavoatrial junction. Monitoring leads superimpose the chest. XR/XR chest 1V portable [id number] IMPRESSION: 1. Bibasal infiltrates showing minimal improvement. 2. ET tube ends at the thomas and should be retracted 3 to 4 cm for optimal pos ition. 3. NG tube enters the stomach but the tip is not visible.
[2020-07-06 07:01] LABS: Creatine Phosphokinase 27 U/L (26-192)
[2020-07-06 07:25] LABS: Slide Review Slide Review Perform
[2020-07-06 07:35] LABS: Partial Thromboplastin Time 126.6 SECONDS (23.9-36.7)
--- NOTE | 2020-07-06 08:38 | PC.SOCIAL ---
IMM Update Pg. 2 of IMM updated. Attempted to called patient's Raymond MILLER. Voicemail left.
[2020-07-06] MEDS: atorvastatin 40 mg Tablet 20 MG PO (09:02)
[2020-07-06] MEDS: zinc gluconate 50 mg Tablet 100 MG PO (09:02)
[2020-07-06] MEDS: ascorbic acid 500 mg Tablet PO (09:03)
[2020-07-06] MEDS: dexamethasone 4 mg/mL INJ 6 MG IVP (09:03)
[2020-07-06] MEDS: sennosides-docusate Tablet 1 TAB PO (09:03)
[2020-07-06] MEDS: phosphorus 250 mg Tablet PO ×2 (09:06→17:31)
[2020-07-06] MEDS: aspirin 81 mg Chew Tablet PO (09:09)
[2020-07-06] MEDS: valproic acid 250 mg/5 mL UDC PO ×2 (09:09→17:30)
[2020-07-06] MEDS: cholecalciferol (vitamin D3) 5,000 unit Tablet 5000 UNIT PO (09:09)
[2020-07-06] MEDS: folic acid 1 mg Tablet PO (09:10)
[2020-07-06] MEDS: cyanocobalamin 1,000 mcg Tablet 1000 MCG PO (09:10)
[2020-07-06] MEDS: lactated ringers 500 ML 999 ML IV (11:19)
[2020-07-06 11:24] LABS: Glucose Point of Care 199 mg/dL (70-110)
--- NOTE | 2020-07-06 11:48 | P.PN_ITS ---
Subjective Subjective: Interval history: Patient was examined this morning, she remains intubated, sedated, on fentanyl, propofol, Levophed at 2, normal sinus rhythm, Cardizem drip off, hemoglobin dropped to 7.9 today, heparin drip held, will give 2 units PRBC, urine output is significantly improving 1350 cc, blood pressures are looking better, remains afebrile, on 60% FiO2 Vitals/I&O/Wt Last Vital Signs Temp 98.2 F 07/06/20 11:20 Pulse 84 07/06/20 11:00 Resp 16 07/06/20 09:03 BP 94/51 07/06/20 11:00 Pulse Ox 93 07/06/20 11:00 07/05/20 07/06/20 07/06/20 22:59 06:59 14:59 Intake Total 1605.323 / 2824.345 1527.890 / 4352.235 200 / 200 Output Total 275 / 575 750 / 1325 Balance 1330.323 / 2249.345 777.890 / 3027.235 200 / 200 Physical Exam Const: COMMON NORMALS: no acute distress OTHER: Intubated, sedated HENMT: COMMON NORMALS: normocephalic HEAD & SCALP: normocephalic Neck/C-Spine: COMMON NORMALS: no JVD Resp: COMMON NORMALS: normal respiratory effort, No retractions, No use of accessory muscles and clear to auscultation bilaterally AUSCULTATION: clear to auscultation bilaterally Cardio: COMMON NORMALS: no JVD, regular rate, regular rhythm, S1 normal heart sound present and S2 normal heart sound present RATE: regular rate RHYTHM: regular rhythm HEART SOUNDS: S1 normal heart sound present and S2 normal heart sound present GI: COMMON NORMALS: Normal to inspection, nondistended, normoactive bowel sounds present, Soft to palpation, non-tender, No hepatosplenomegaly present, no masses and no bruits PALPATION: Yes Soft to palpation and Yes No hepatosplenomegaly present Extremity: COMMON NORMALS: capillary refill normal, no clubbing, cyanosis or edema and no pedal edema Psych: COMMON NORMALS: mental status grossly normal Skin: NARRATIVE SKIN EXAM: Left arm: Levophed infiltration site, looks clean, dry, good blanching of the skin, no necrosis, no blocking Right neck central line placement, clean and dr Left neck, subclavian injury site, clean and dry, no signs of bleeding Urinary Catheter Management^: Kowalski: Cath Placed During This Visit: yes Reason for Continuing Indwelling Catheter: Accurate Measurement of Urinary Ou tput in Critically Ill Patients Urinary Catheter Date of Insertion: 07/03/20 Urinary Catheter Time of Insertion: 13:27 Data : 07/06/20 03:15 07/06/20 03:15 Micro: Microbiology 07/05/20 09:00 Blood Culture - Preliminary Blood NEGATIVE TO DATE 07/05/20 08:40 Blood Culture - Preliminary Blood NEGATIVE TO DATE 07/03/20 13:28 Urine Culture - Final Urine,Clean Catch Pseudomonas aeruginosa 07/03/20 14:50 Gram Stain - Final Sputum - Endotracheal Tube Aspirate Sputum Culture - Final Streptococcus pneumoniae A&P Assessment and plan (1) Pneumonia due to 2019 novel coronavirus: Status: Acute (2) Atrial fibrillation with RVR: -Cardizem drip as above -Hold anticoagulation given subclavian injury Status: Acute (3) Type 2 diabetes mellitus: A1c, moderate dose sliding scale Status: Acute Qualifiers: Diabetes mellitus supervisor intermediates insulin use: unspecified supervisor intermediates insulin use status Diabetes mellitus complication status: with other specified complication Qualified Code(s): E11.69 - Type 2 diabetes mellitus with other specified complication (4) NSTEMI (non-ST elevated myocardial infarction): -Likely supply demand ischemia from acute respiratory failure, septic shock, lactic acidosis -Continue aspirin 81 mg, atorvastatin 40 mg -Echocardiogram shows EF of 55%, segmental wall motion analysis difficult to lidia lyze because of arrhythmia, however no gross wall motion abnormalities were noted -Continue telemetry monitoring Status: Acute (5) Septic shock: Status: Acute (6) Acute respiratory failure with hypoxia: -Secondary to COVID-19 pneumonia, secondary bacterial infection, UTI, pulmonary edema -Evidence of multiorgan failure -Evidence of DIC -A. fib with RVR -Evidence of septic shock -CT of the chest shows bilateral lower lobe atelectasis and pneumonia, minimal peripheral pulmonary infiltrates -Respiratory cultures growing strep pneumoniae, urine cultures growing Pseudom onas PLAN: -Admit to viral ICU -Patient is a full code -Right central line in place, x-ray no pneumothorax, tip over SVC -Heparin drip on hold for hypercoagulability associate with COVID-19 -Hemoglobin down to 7.9, no overt signs of bleeding, continue Protonix, transfuse units PRBC, heparin drip on hold -Patient's DPOA is Sukh Andrade counts [phone], I have already updated on patient's status -Prognosis is guarded, status is critical -On the ventilator, minimize PEEP, minimize FiO2: Currently on 65% FiO2, 450 tidal volume, PEEP of 10, will try to titrate it down -pH this morning 7.38, PCO2 46.4, PO2 67.2 on 60% -Fentanyl and propofol for sedation -Decadron -Remdesivir on hold, her GFR has improved to 44, will consider starting remdesivir tonight, based on rapid Covid, Covid PCR -Broad-spectrum antibiotics vancomycin, Primaxin, azithromycin -tube feeds, Jevity, low-dose sliding scale, maintain blood sugars between 180- 225 -Fluids have been stopped for hypovolemic hyponatremia, urine output 1350 cc, creatinine 1.1, will give another 500 cc bolus of LR -Normal sinus rhythm, Cardizem drip on hold - Levophed, maintain MAP greater than 65, currently going minimal at 2 -Follow urine cultures, blood cultures, respiratory cultures, urine bacterial antigens -Follow serial inflammatory markers -Daily EKGs to monitor QTC -Consult pulmonary service PLAN: We will give 500 cc bolus, await Covid testing, will consider starting remdesivir, monitor serum sodium, monitor urine output, monitor creatinine, de- escalate antibiotics based on MRSA PCR Status: Acute (7) Acute renal insufficiency: -Acute kidney injury, secondary to sepsis, secondary to dehydration, creatinine 1.1 -Not performed cc, continue to monitor as above Status: Acute (8) DIC (disseminated intravascular coagulation): Status: Acute (9) Hypernatremia: Status: Acute (10) Secondary bacterial pneumonia: Status: Acute (11) Lactic acidosis: Status: Acute (12) UTI (urinary tract infection): Primaxin as above, CT abdomen pelvis shows left nephrolithiasis, small stone in proximal left ureter, no evidence hydronephrosis, urine growing Pseudomonas Status: Acute (13) Dehydration with hypernatremia: -Hypovolemic hypernatremia - Status: Acute (14) Transaminitis: Status: Acute (15) Injury of left subclavian artery: -ct chest showed: The catheter entering along the left side of the neck is intra arterial in position with its tip in the ascending thoracic aorta. -us LUE showed;Patent left subclavian, axillary, brachial, distal radial and ulnar arteries. The proximal and mid brachial, radial and ulnar arteries were not visualized Possibly no significant arterial obstruction, based on the above findings. Technically somewhat limited study -Site looks clean and dry, no active bleeding pressure dressing applied -It has been more than 48 hours since her arterial injury -No active bleeding around site -unFortunately Dr. Dias is not on for cardiothoracic surgery Status: Acute Attestations Medical Necessity Statement*: Patient requires hospitalization for acute respiratory failure, A. fib, acute renal failure, hyponatremia Coding Level of Care Code Acute Vulnerability Researcher for [facility] Fwd Diagnoses Pneumonia due to 2019 novel coronavirus U07.1; J12.89 Atrial fibrillation with RVR I48.91 Type 2 diabetes mellitus E11.69 Diabetes mellitus supervisor intermediates insulin use: unspecified correction insulin use status Diabetes mellitus complication status: with other specified complication NSTEMI (non-ST elevated myocardial infarction) I21.4 Septic shock A41.9; R65.21 Acute respiratory failure with hypoxia J96.01 Acute renal insufficiency N28.9 DIC (disseminated intravascular coagulation) D65 Hypernatremia E87.0 Secondary bacterial pneumonia J15.9 Lactic acidosis E87.2 UTI (urinary tract infection) N39.0 Dehydration with hypernatremia E87.0 Transaminitis R74.01 Injury of left subclavian artery S25.102A Sepsis Event Note Evaluation Current stage of sepsis: sepsis Initial hypotension due to sepsis/infection: SBP < 90 mmHg Possible source: pulmonary and genitourinary Focused Exam Vital Signs Temp Pulse Resp BP Pulse Ox 07/06/20 11:20 98.2 F 07/06/20 11:00 84 94/51 93 07/06/20 10:45 83 90/53 93 07/06/20 10:30 84 95/51 93 07/06/20 10:15 83 105/51 93 07/06/20 10:00 89 103/54 94 07/06/20 09:45 85 95/53 94 07/06/20 09:30 86 100/52 94 07/06/20 09:15 82 93/55 93 07/06/20 09:03 16 07/06/20 09:00 81 98/51 96 07/06/20 08:45 80 89/51 95 07/06/20 08:30 82 92/53 95 07/06/20 08:15 84 96/54 95 07/06/20 08:00 82 107/51 95 07/06/20 07:45 83 105/54 95 07/06/20 07:30 81 98/53 96 07/06/20 07:15 79 93/55 95 07/06/20 07:00 98.9 F 79 92/55 95 07/06/20 06:45 76 95/56 95 07/06/20 06:30 77 106/58 93 07/06/20 06:15 87 113/61 95 07/06/20 06:00 91 108/62 95 07/06/20 05:45 83 103/59 96 07/06/20 05:30 79 106/61 95 07/06/20 05:15 79 100/58 95 07/06/20 05:00 78 104/55 95 07/06/20 04:45 81 109/56 95 07/06/20 04:30 81 104/59 94 07/06/20 04:15 78 107/58 94 07/06/20 04:00 98.6 F 84 107/59 94 07/06/20 03:53 81 15 94 07/06/20 03:45 83 106/67 94 07/06/20 03:30 80 100/59 94 07/06/20 03:15 81 99/60 94 07/06/20 03:00 79 112/58 94 07/06/20 02:45 82 107/62 94 07/06/20 02:30 79 116/65 94 07/06/20 02:15 87 111/62 94 07/06/20 02:00 82 111/60 94 07/06/20 01:45 78 114/60 94 07/06/20 01:30 79 102/58 94 07/06/20 01:15 82 104/68 94 07/06/20 01:00 79 112/61 94 07/06/20 00:45 78 102/62 94 07/06/20 00:30 79 102/59 91 07/06/20 00:15 86 112/53 88 L 07/06/20 00:00 77 111/55 94 Peripheral pulse strength: 2+ Slightly Diminished Peripheral pulse location: Pedal Skin exam: normal turgor Date exam was performed: 07/06/20 Time exam was performed: 11:52 Problem List (1) Pneumonia due to 2019 novel coronavirus: Status: Acute (2) Atrial fibrillation with RVR: Status: Acute (3) Type 2 diabetes mellitus: Status: Acute (4) NSTEMI (non-ST elevated myocardial infarction): Status: Acute (5) Septic shock: Status: Acute (6) Acute respiratory failure with hypoxia: Status: Acute (7) Acute renal insufficiency: Status: Acute (8) DIC (disseminated intravascular coagulation): Status: Acute (9) Hypernatremia: Status: Acute (10) Secondary bacterial pneumonia: Status: Acute (11) Lactic acidosis: Status: Acute (12) UTI (urinary tract infection): Status: Acute (13) Dehydration with hypernatremia: Status: Acute (14) Transaminitis: Status: Acute (15) Injury of left subclavian artery: Status: Acute
--- NOTE | 2020-07-06 12:29 | P.PN_ITS ---
Subjective Subjective: Interval history: Patient seen via telemed today She remains intubated, sedated, on fentanyl, propofol, Levophed at 2, normal sinus rhythm, Cardizem drip off, hemoglobin dropped to 7.9 today, heparin drip held, will give 2 units PRBC, urine output is significantly improving 1350 cc, blood pressures are looking better, remains afebrile, on 60% FiO2 Medications: Reviewed: Yes Medication Review Details: Current Medications Albuterol/Ipratropium (Ipratropium-Albuterol 3 Ml Neb) 3 ml INHALATION Q4H.RESPIRATORY PRN PRN Reason: SHORTNESS OF BREATH Last Admin: 07/05/20 00:45 Dose: 3 ml Documented by: Ascorbic Acid (Ascorbic Acid 500 Mg Tablet) 500 mg PO DAILY [facility] Last Admin: 07/04/20 09:06 Dose: 500 mg Documented by: Aspirin (Aspirin 81 Mg Chew Tablet) 81 mg PO DAILY [facility] Last Admin: 07/04/20 09:07 Dose: 81 mg Documented by: Atorvastatin Calcium (Atorvastatin 40 Mg Tablet) 20 mg PO DAILY [facility] Last Admin: 07/04/20 09:06 Dose: 20 mg Documented by: Cyanocobalamin (Cyanocobalamin 1,000 Mcg Tablet) 1,000 mcg PO DAILY [facility] Last Admin: 07/04/20 09:07 Dose: 1,000 mcg Documented by: Dexamethasone (Dexamethasone 4 Mg/Ml Inj) 6 mg IVP Q24H [facility] Last Admin: 07/04/20 08:37 Dose: 6 mg Documented by: Dextrose (Dextrose 50% Syringe 50 Ml) 25 ml IVP ONCE PRN; Protocol PRN Reason: hypoglycemia protocol Dextrose (Dextrose 50% Syringe 50 Ml) 50 ml IVP PRN PRN; Protocol PRN Reason: hypoglycemia protocol Enoxaparin Sodium (Enoxaparin 60 Mg/0.6 Ml Syringe) 60 mg SUBCUT Q24H [facility] Folic Acid (Folic Acid 1 Mg Tablet) 1 mg PO DAILY [facility] Last Admin: 07/04/20 09:07 Dose: 1 mg Documented by: Glucagon (Glucagon 1 Mg/Ml Inj 1 Ml) 1 mg IM ONCE PRN; Protocol PRN Reason: Adult Acute Hypoglycemia Prot. Fentanyl 1,000 mcg/ Sodium (Chloride) 100 mls @ 0 mls/hr IV .Q0M [facility]; Protocol Last Admin: 07/04/20 21:47 Dose: 100 mcg/hr, 10 mls/hr Documented by: remdesivir (EUA) 100 mg/ (Sodium Chloride) 100 mls @ 100 mls/hr IV Q24H [facility] Propofol (Diprivan) 1,000 mg in 100 mls @ 0 mls/hr IV .Q0M [facility]; Protocol Last Titration: 07/05/20 00:30 Dose: 10 mcg/kg/min, 3.7 mls/hr Documented by: Vancomycin HCl 1,000 mg/ (Sodium Chloride) 250 mls @ 250 mls/hr IV Q24H [facility]; Protocol Last Admin: 07/05/20 00:07 Dose: 250 mls/hr Documented by: Azithromycin 500 mg/ Sodium (Chloride) 250 mls @ 250 mls/hr IV Q24H [facility]; Protocol Last Admin: 07/04/20 17:34 Dose: 250 mls/hr Documented by: Norepinephrine Bitartrate 4 mg (/ Dextrose) 254 mls @ 0 mls/hr IV .Q0M [facility]; Protocol Last Titration: 07/05/20 00:30 Dose: 0 mcg/min, 0 mls/hr Documented by: Dextrose (D5w) 500 mls @ 100 mls/hr IV ONCE PRN; Protocol PRN Reason: Adult Acute Hypoglycemia Prot Sodium Chloride (Sodium Chloride 0.45%) 1,000 mls @ 100 mls/hr IV .Q10H [facility] Last Admin: 07/05/20 00:07 Dose: 100 mls/hr Documented by: Imipenem/Cilastatin Sodium 250 (mg/ Sodium Chloride) 100 mls @ 200 mls/hr IV Q6H [facility] Last Admin: 07/05/20 03:37 Dose: 200 mls/hr Documented by: Diltiazem HCl 125 mg/ Sodium (Chloride) 125 mls @ 0 mls/hr IV .Q0M [facility]; Protocol Last Titration: 07/05/20 04:12 Dose: Infused Documented by: Insulin Aspart (Insulin Aspart 100 Unit/1 Ml) 0 unit SUBCUT TIDWM [facility]; Protocol Last Admin: 07/04/20 17:34 Dose: 6 unit Documented by: Naloxone HCl (Naloxone 0.4 Mg/Ml Sdv) 0.1 mg IVP Q2M PRN PRN Reason: OPIATERV Nitroglycerin (Nitroglycerin 1 Gm/Inch Oint Pkt) 1 inch TOPICAL Q12H [facility] Stop: 07/05/20 13:14 Last Admin: 07/05/20 01:49 Dose: 1 inch Documented by: Ondansetron HCl (Ondansetron 2 Mg/Ml Sdv 2 Ml) 4 mg IVP Q8H PRN PRN Reason: vomiting, or N/V if npo Pantoprazole Sodium (Pantoprazole 40 Mg Sdv) 40 mg IVP Q24H [facility] Last Admin: 07/04/20 17:34 Dose: 40 mg Documented by: Sodium Bicarbonate (Sodium Bicarbonate 8.4% 1 Meq/Ml 50ml Syr) 50 meq IVP ONCE ONE Stop: 07/05/20 08:01 Valproic Acid (Valproic Acid 250 Mg/5 Ml Udc) 250 mg PO BID [facility] Last Admin: 07/04/20 17:34 Dose: 250 mg Documented by: Vitamin D (Cholecalciferol (Vitamin D3) 5,000 Unit Tablet) 5,000 unit PO DAILY [facility] Last Admin: 07/04/20 09:07 Dose: 5,000 unit Documented by: Zinc Gluconate (Zinc Gluconate 50 Mg Tablet) 100 mg PO DAILY [facility] Last Admin: 07/04/20 09:06 Dose: 100 mg Documented by: Vitals/I&O/Wt Last Vital Signs Temp 98.2 F 07/06/20 11:20 Pulse 84 07/06/20 11:00 Resp 16 07/06/20 09:03 BP 94/51 07/06/20 11:00 Pulse Ox 93 07/06/20 11:00 07/05/20 07/06/20 07/06/20 22:59 06:59 14:59 Intake Total 1605.323 / 2824.345 1527.890 / 4352.235 200 / 200 Output Total 275 / 575 750 / 1325 Balance 1330.323 / 2249.345 777.890 / 3027.235 200 / 200 Physical Exam Narrative: EXAM NARRATIVE: Per RN Patient intubated and vented Rales in bases of lungs Belly soft, BS Ext without edema Grossly non focal but sedated on the vent Urinary Catheter Management^: Kowalski: Cath Placed During This Visit: yes Reason for Continuing Indwelling Catheter: Accurate Measurement of Urinary Output in Critically Ill Patients Urinary Catheter Date of Insertion: 07/03/20 Urinary Catheter Time of Insertion: 13:27 Data : 07/06/20 03:15 07/06/20 03:15 Micro: Microbiology 07/05/20 09:00 Blood Culture - Preliminary Blood NEGATIVE TO DATE 07/05/20 08:40 Blood Culture - Preliminary Blood NEGATIVE TO DATE 07/03/20 13:28 Urine Culture - Final Urine,Clean Catch Pseudomonas aeruginosa 07/03/20 14:50 Gram Stain - Final Sputum - Endotracheal Tube Aspirate Sputum Culture - Final Streptococcus pneumoniae A&P Additional A&P Information 1. Oligoanuric renal failure. Likely to have profound prerenal azotemia, also a high risk of developing ATN both from renal hypoperfusion and sepsis. Creatinine remains stable and urine output remains robust Continue pressors to maintain MAP greater than 65 Receiving some PRBCs and 500mL of LR today Avoid usual nephrotoxic agents Strict ins and outs 2. Hypernatremia High but stable Holding hypotonics at this time 3. Vent dependent respiratory failure Secondary to Covid, possible superimposed pneumonia On combination antibiotics including vancomycin, Primaxin, azithromycin Dexamethasone Remdesivir Vent management per ICU team Weaning as tolerated over the next 24hrs Interview performed via telemedicine with the aid of the bedside nurse. Albert Hitchcock MD [phone] Attestations Medical Necessity Statement*: Eval for TODD Coding Level of Care Code Acute Data Entry Coordinator for [facility]
[2020-07-06 14:20] LABS: SARS Covid-2 Antigen Positive (Negative)
[2020-07-06] MEDS: artificial tears Op Soln 15 mL Btl 1 DROP EYE-BOTH (15:16)
--- NOTE | 2020-07-06 16:07 | P.PN_ITS ---
Subjective Subjective: Interval history: acute hypoxic respiratory failure and septic shock all secondary to strep pneumonia and possible Pseudomonas UTI along with underlying COVID 19. Remains sedated and intubated Renal plan to give to units PRBC for hemoglobin 7.9 Improving urine outputs Normal sinus rhythm, on Cardizem held and heparin held Medications: Reviewed: Yes Medication Review Details: Current Medications Albuterol/Ipratropium (Ipratropium-Albuterol 3 Ml Neb) 3 ml INHALATION Q4H.RESPIRATORY PRN PRN Reason: SHORTNESS OF BREATH Last Admin: 07/05/20 00:45 Dose: 3 ml Documented by: Ascorbic Acid (Ascorbic Acid 500 Mg Tablet) 500 mg PO DAILY [facility] Last Admin: 07/04/20 09:06 Dose: 500 mg Documented by: Aspirin (Aspirin 81 Mg Chew Tablet) 81 mg PO DAILY [facility] Last Admin: 07/04/20 09:07 Dose: 81 mg Documented by: Atorvastatin Calcium (Atorvastatin 40 Mg Tablet) 20 mg PO DAILY [facility] Last Admin: 07/04/20 09:06 Dose: 20 mg Documented by: Cyanocobalamin (Cyanocobalamin 1,000 Mcg Tablet) 1,000 mcg PO DAILY [facility] Last Admin: 07/04/20 09:07 Dose: 1,000 mcg Documented by: Dexamethasone (Dexamethasone 4 Mg/Ml Inj) 6 mg IVP Q24H [facility] Last Admin: 07/04/20 08:37 Dose: 6 mg Documented by: Dextrose (Dextrose 50% Syringe 50 Ml) 25 ml IVP ONCE PRN; Protocol PRN Reason: hypoglycemia protocol Dextrose (Dextrose 50% Syringe 50 Ml) 50 ml IVP PRN PRN; Protocol PRN Reason: hypoglycemia protocol Enoxaparin Sodium (Enoxaparin 60 Mg/0.6 Ml Syringe) 60 mg SUBCUT Q24H [facility] Folic Acid (Folic Acid 1 Mg Tablet) 1 mg PO DAILY [facility] Last Admin: 07/04/20 09:07 Dose: 1 mg Documented by: Glucagon (Glucagon 1 Mg/Ml Inj 1 Ml) 1 mg IM ONCE PRN; Protocol PRN Reason: Adult Acute Hypoglycemia Prot. Fentanyl 1,000 mcg/ Sodium (Chloride) 100 mls @ 0 mls/hr IV .Q0M [facility]; Protocol Last Admin: 07/04/20 21:47 Dose: 100 mcg/hr, 10 mls/hr Documented by: remdesivir (EUA) 100 mg/ (Sodium Chloride) 100 mls @ 100 mls/hr IV Q24H TAJ Propofol (Diprivan) 1,000 mg in 100 mls @ 0 mls/hr IV .Q0M TAJ; Protocol Last Titration: 07/05/20 00:30 Dose: 10 mcg/kg/min, 3.7 mls/hr Documented by: Vancomycin HCl 1,000 mg/ (Sodium Chloride) 250 mls @ 250 mls/hr IV Q24H TAJ; Protocol Last Admin: 07/05/20 00:07 Dose: 250 mls/hr Documented by: Azithromycin 500 mg/ Sodium (Chloride) 250 mls @ 250 mls/hr IV Q24H TAJ; Protocol Last Admin: 07/04/20 17:34 Dose: 250 mls/hr Documented by: Norepinephrine Bitartrate 4 mg (/ Dextrose) 254 mls @ 0 mls/hr IV .Q0M TAJ; Protocol Last Titration: 07/05/20 00:30 Dose: 0 mcg/min, 0 mls/hr Documented by: Dextrose (D5w) 500 mls @ 100 mls/hr IV ONCE PRN; Protocol PRN Reason: Adult Acute Hypoglycemia Prot Sodium Chloride (Sodium Chloride 0.45%) 1,000 mls @ 100 mls/hr IV .Q10H TAJ Last Admin: 07/05/20 00:07 Dose: 100 mls/hr Documented by: Imipenem/Cilastatin Sodium 250 (mg/ Sodium Chloride) 100 mls @ 200 mls/hr IV Q6H [facility] Last Admin: 07/05/20 03:37 Dose: 200 mls/hr Documented by: Diltiazem HCl 125 mg/ Sodium (Chloride) 125 mls @ 0 mls/hr IV .Q0M TAJ; Protocol Last Titration: 07/05/20 04:12 Dose: Infused Documented by: Insulin Aspart (Insulin Aspart 100 Unit/1 Ml) 0 unit SUBCUT TIDWM [facility]; Protocol Last Admin: 07/04/20 17:34 Dose: 6 unit Documented by: Naloxone HCl (Naloxone 0.4 Mg/Ml Sdv) 0.1 mg IVP Q2M PRN PRN Reason: OPIATERV Nitroglycerin (Nitroglycerin 1 Gm/Inch Oint Pkt) 1 inch TOPICAL Q12H [facility] Stop: 07/05/20 13:14 Last Admin: 07/05/20 01:49 Dose: 1 inch Documented by: Ondansetron HCl (Ondansetron 2 Mg/Ml Sdv 2 Ml) 4 mg IVP Q8H PRN PRN Reason: vomiting, or N/V if npo Pantoprazole Sodium (Pantoprazole 40 Mg Sdv) 40 mg IVP Q24H [facility] Last Admin: 07/04/20 17:34 Dose: 40 mg Documented by: Sodium Bicarbonate (Sodium Bicarbonate 8.4% 1 Meq/Ml 50ml Syr) 50 meq IVP ONCE ONE Stop: 07/05/20 08:01 Valproic Acid (Valproic Acid 250 Mg/5 Ml Udc) 250 mg PO BID [facility] Last Admin: 07/04/20 17:34 Dose: 250 mg Documented by: Vitamin D (Cholecalciferol (Vitamin D3) 5,000 Unit Tablet) 5,000 unit PO DAILY [facility] Last Admin: 07/04/20 09:07 Dose: 5,000 unit Documented by: Zinc Gluconate (Zinc Gluconate 50 Mg Tablet) 100 mg PO DAILY [facility] Last Admin: 07/04/20 09:06 Dose: 100 mg Documented by: Vitals/I&O/Wt Last Vital Signs Temp 97.5 F L 07/06/20 15:00 Pulse 80 07/06/20 15:30 Resp 18 07/06/20 13:45 BP 111/62 07/06/20 15:30 Pulse Ox 94 07/06/20 15:30 07/06/20 07/06/20 07/06/20 06:59 14:59 22:59 Intake Total 1527.890 / 4352.235 300 / 300 Output Total 750 / 1325 450 / 450 Balance 777.890 / 3027.235 300 / 300 -450 / -150 Physical Exam Narrative: EXAM NARRATIVE: PHYSICAL EXAM: General: lying in bed, sedated and intubated. HEENT:NCAT, PERRLA, EOMI Neck: Supple Lungs: Clear, Heart: s1/s2, RRR Abd: soft, NT, ND, BS + Normoactive Extremities: No edema MACHINE BURRER: sedated and limited MACHINE BURRER exam possible. SKIN: no rash LDA: # CVC: Right IJ line 07/04/2020 #Urine Lieberman 07/03/2020 Urinary Catheter Management^: Lieberman: Cath Placed During This Visit: yes Reason for Continuing Indwelling Catheter: Accurate Measurement of Urinary Output in Critically Ill Patients Urinary Catheter Date of Insertion: 07/03/20 Urinary Catheter Time of Insertion: 13:27 Data : 07/06/20 03:15 07/06/20 03:15 Micro: Microbiology 07/05/20 18:05 MRSA Culture - Final Nose 07/05/20 09:00 Blood Culture - Preliminary Blood NEGATIVE TO DATE 07/05/20 08:40 Blood Culture - Preliminary Blood NEGATIVE TO DATE 07/03/20 13:28 Urine Culture - Final Urine,Clean Catch Pseudomonas aeruginosa 07/03/20 14:50 Gram Stain - Final Sputum - Endotracheal Tube Aspirate Sputum Culture - Final Streptococcus pneumoniae A&P Assessment and plan (1) Pneumonia due to 2019 novel coronavirus: Status: Acute (2) Atrial fibrillation with RVR: Status: Acute (3) Type 2 diabetes mellitus: Status: Acute Qualifiers: Diabetes mellitus half-way insulin use: unspecified half-way insulin use status Diabetes mellitus complication status: with other specified complication Qualified Code(s): E11.69 - Type 2 diabetes mellitus with other specified complication (4) NSTEMI (non-ST elevated myocardial infarction): Status: Acute (5) Septic shock: Status: Acute (6) Acute respiratory failure with hypoxia: Status: Acute (7) Acute renal insufficiency: Status: Acute (8) DIC (disseminated intravascular coagulation): Status: Acute (9) Hypernatremia: Status: Acute Assessment and plan: 75 year old female with PMH of TIA, frequent UTIs, COPD, HTN, type 2 DM, GERD, chronic back pain, depression and anxiety, possible CVA requiring transfer to [place] on June 14, 2019 admitted to viral ICU for acute hypoxic respiratory failure secondary to pneumonia, acute hypernatremia secondary to sepsis related dehydration and acute renal failure NEURO: #Altered mental status on presentation could be due to hypernatremia due to dehydration/sepsis - Recommended to gradually correct sodium -Sodium 148 -Patient opening eyes - continue am awakening trial #sedation -[id number], fentanyl 100 PULM: #Acute hypoxic respiratory failure likely due to strep pneumonia -Recently tested positive for Covid 3 weeks back in [facility] -Rapid Covid antigen positive -Intubated on arrival to ER for sats initially 80s on 15 L -CMV 450/14/PEEP 10 / 50% -ABG today morning 7.38/46/67/27 on 60% -CXR Bilateral pulmonary infiltrates show slight improvement -BNP 758 -Covered with vancomycin, azithromycin, dexamethasone, imipenem -To start remdesivir once creatinine clearance is more than 30 -Endotracheal tube aspirate strep pneumonia sensitive to penicillin but patient is penicillin allergic -Once patient is hemodynamically stable and vent requirements come down we can try awakening trial and breathing trial and plan to extubate accordingly CVS: #Shock - most likely sepsis #Troponinemia-could be secondary to demand ischemia due to sepsis/TODD -Currently down to Levophed 2-Target map> 65 -BNP 1245 today -Aspirin, Lipitor -Echo ejection fraction 55% with moderate TR and increased pulmonary artery pressure 36 #A. fib with RVR likely due to sepsis - currenlty NSR -Off Diltiazem-rate controlled -held heparin and pt has dropping hB/HCT GI: -Tube feeding Jevity at 60 mL/h -On bowel regimen senna at bedtime - If no bm tomorrow - will start on Lactulose RENAL: #TODD-likely due to hypoperfusion secondary to dehydration/sepsis/NSTEMI #Hypovolemic hyponatremia likely secondary to sepsis related dehydration -On pressors Levophed 2 with map goal greater than 65 -Improving renal functions -Strict I/O -Continue lieberman cath -Avoid nephrotoxins -Replace lytes prn -Renal following recommended 2 prbc and LR 500 Bolus #Renal stones -CT abdomen pelvis shows left nephrolithiasis, small stone in proximal left ureter, no evidence hydronephrosis, HEM: H&H - trending down and no active bleeding however heparin stopped and is given 2 prbc Plts stable,will trend earlier Coagulation profile suggestive of DIC DVT prophylaxis: Patient on heparin drip; patient has a reported history of allergy to Lovenox unknown type. Currently held heparin held due to drop in hb/hct Recent injury to left carotid artery while placing central line-currently no bleeding noted ENDO: Hyperglycemia -sugars 193/199 on high-dose SSI and check POCT Q6H -If consecutive readings of greater than 400 switch to IV insulin ID: - Severe sepsis secondary to strep pneumonia and Pseudomonas UTI -afebrile, leukocytosis trending 19K improving -Lactic acidosis improving -Procalcitonin high -Endotracheal aspirate positive for strep pneumonia -Recent COVID-19 test +3 weeks ago in [facility]-repeat COVID-19 testing positive -Elevated inflammatory markers -Coagulation profile suggestive of DIC with fibrin degradation products positive -Treat underlying pneumonia with imipenem, azithromycin, dexamethasone -Once renal functions improved can start on remdesivir -Send for MRSA nares and if negative can DC vancomycin Recommendations conveyed to hospitalist covering the patient Overall pt with acute hypoxic respiratory failure and septic shock all secondary to strep pneumonia and possible Pseudomonas UTI along with underlying COVID 19. Hypernatremia related to dehyration/hypoperfusion due to sepsis leading to prerenal renal failure responding to better MAPs and replacing intravascular volume. Attestations Medical Necessity Statement*: acute hypoxic respiratory failure and septic shock all secondary to strep pneumonia and possible Pseudomonas UTI along with underlying COVID 19, prerenal failure requiring pressors and mechanical ventilation Time Spent in Patient Care: Greater than 35 minutes (>than 50% of time spent in counselling and/or direct pt care on unit) . Coding Level of Care Code Established Pt Acute Progressive Care Manager for Michael Catalan Patient Type Established History Comprehensive Exam Comprehensive Medical Decision Making Moderate Complexity Diagnoses Pneumonia due to 2019 novel coronavirus U07.1; J12.89 Atrial fibrillation with RVR I48.91 Type 2 diabetes mellitus E11.69 Diabetes mellitus computer terminal operator insulin use: unspecified computer terminal operator insulin use status Diabetes mellitus complication status: with other specified complication NSTEMI (non-ST elevated myocardial infarction) I21.4 Septic shock A41.9; R65.21 Acute respiratory failure with hypoxia J96.01 Acute renal insufficiency N28.9 DIC (disseminated intravascular coagulation) D65 Hypernatremia E87.0 Time Spent (min) 45
[2020-07-06] MEDS: pantoprazole 40 mg SDV IVP (17:30)
[2020-07-06] MEDS: azithromycin 500 MG in sodium chloride 0.9% 250 ML 250 MG IV (17:30)
[2020-07-06 20:20] LABS: Glucose Point of Care 231 mg/dL (70-110)
--- NOTE | 2020-07-06 21:00 | PC.NURSE ---
VTE assessment: Patient was previous on a heparin gtt with an elevated PTT. Heparin gtt was placed on hold today due to a low HgB level. Currently SCDs are the patient's only VTE prevention intervention.
[2020-07-06 23:37] LABS: Glucose Point of Care 201 mg/dL (70-110)
[2020-07-06 23:39] LABS: Glucose Point of Care 253 mg/dL (70-110)
[2020-07-06] MEDS: propofol 1,000 MG/100 ML INJ 3.7 MG IV (23:39)
[2020-07-06] MEDS: vancomycin 1,000 MG in sodium chloride 0.9% 250 ML 250 MG IV (23:42)
[2020-07-07] VITALS (110 sets, daily range): BP systolic 90–154; BP diastolic 53–108; PULSE 62–112; RESP 14–20; TEMP -17.7–37.2; O2SAT 90–97
[2020-07-07 03:49] LABS: ABG PCO2 45.2 mmHg (35-45); ABG PH Result 7.41 (7.35-7.45); Arterial Blood Gas Hematocrit 34.9 % (37-47); Base Excess ABG 3.4 mmol/L (-2.0-2.0); Blood Gas Allen Test Pos; Blood Gas Sample Site Radial, right; Blood Gas Sample Type Arterial; Blood Gas Tidal Volume 0.45; HCO3 ABG 28.6 mmol/L (22-26); Oxygen Device VENT; PO2 ABG 66.9 mmHg (80.0-100.0)
[2020-07-07 03:56] LABS: Basophils # 0.1 10^3/uL (0.0-0.1); Basophils % 0.3 %; Hematocrit 34.3 % (37.0-47.0); Hemoglobin 10.7 g/dL (11.5-15.3); Lymphocytes # 1.6 10^3/uL (0.8-4.8); Lymphocytes % 10.4 %; Mean Corpuscular HGB Conc 31.2 g/dL (30.0-36.0); Mean Corpuscular Hemoglobin 30.4 pg (28.0-34.0); Mean Corpuscular Volume 97.4 fL (81-99); Mean Platelet Volume 12.3 fL (7.4-10.4); Monocytes # 0.9 10^3/uL (0.2-0.9); Monocytes % 5.9 %; Neutrophils % 76.5 %; Nucleated Red Blood Cells # 0.1 /100WBC; Nucleated Red Blood Cells % 0.8 %; Platelet Count 163 10^3/cmm (130-400); Red Blood Count 3.52 10^6/uL (4.1-5.3); White Blood Count 15.2 10^3/uL (4.0-10.0)
[2020-07-07 04:18] LABS: INR 1.09 (0.8-1.2)
[2020-07-07 04:19] LABS: Alanine Aminotransferase 15 U/L (0-33); Alkaline Phosphatase 102 IU/L (35-105); Anion Gap 11.1 (5-19); Aspartate Amino Transferase 28 U/L (0-32); Blood Urea Nitrogen 44 mg/dL (8-23); C Reactive Protein 27.4 mg/L (0.0-4.9); Calcium 7.9 mg/dL (8.5-10.5); Carbon Dioxide 28 mmol/L (22-29); Chloride 110 mmol/L (98-107); Creatinine Clr Calc Pharmacy 50.3709; Globulin 2.5 g/dL (1.3-4.6); Glucose 181 mg/dL (65-115); Magnesium 2.1 mg/dL (1.7-2.3); Osmolality Calculated 316 mOsm/kg (285-295); Phosphorus 2.5 mg/dL (2.5-4.5); Potassium 4.1 mmol/L (3.5-5.1); Sodium 145 mmol/L (136-145); Total Bilirubin 0.2 mg/dL (0.15-1.2); Total Protein 4.5 g/dL (6.6-8.7)
[2020-07-07 04:21] LABS: Fibrinogen 278 mg/dL (174-498)
[2020-07-07 04:24] LABS: Lactic Sepsis W/Reflex 1.7 mmol/L (0.5-2.2)
[2020-07-07 04:26] LABS: D Dimer 2.73 ug/mIFEU (0-0.59)
[2020-07-07 04:34] LABS: NT Pro B Type Natriuretic Pept 870 pg/mL (0-125)
[2020-07-07 04:45] LABS: Creatine Phosphokinase 29 U/L (26-192)
[2020-07-07 05:40] LABS: Slide Review Slide Review Perform
[2020-07-07 06:00] LABS: Glucose Point of Care 193 mg/dL (70-110)
--- NOTE | 2020-07-07 06:39 | PC.NURSE ---
Patient having large liquid fecal incontinence time 3 tonight. Patient continues to have liquid stool. Rectal tube placed to control fecal incontinence. Patient tolerated rectal tube placement well.
--- NOTE | 2020-07-07 07:00 | XR_ITS ---
WS: [id number] Exam: XR chest 1V portable [id number] Date/Time of Exam: 07/07/2020 5:09 AM Reason For Exam: sob Comparison 07/06/2020. Bibasal pulmonary infiltrates unchanged. The lungs are fully inflated. No pleural effusions. Heart si ze is stable. ET tube ends at the thomas unchanged in position. Right-sided IJ catheter ends in the l ower one third of the SVC. The mediastinum is not widened. XR/XR chest 1V portable [id number] IMPRESSION: 1. ET tube ending at the thomas. The tube should be retracted 3 to 4 cm for opt imal position. 2. No significant overall change since prior exam.
--- NOTE | 2020-07-07 09:11 | USCV_ITS ---
Naida Yap Age: 75 Gender: F : 1945 Exam Date: 07/07/2020 14:46 Ordering Phys: Omero Sanford MD Technologist: Sheri Merrill Exam Location: [facility] [place] Indication: INFILTRATION OF IV SITE LT AC SPACE Findings Edema in tissue surrounding the left antecubitial space. Superficial thrombophlebitis left cephalic vein. Conclusions Left cephalic vein thrombophlebitis. Dr. Franny Roa DO (Electronically Signed) Final Date: 08 July 2020 08:35 S
[2020-07-07] MEDS: valproic acid 250 mg/5 mL UDC PO ×2 (10:09→18:11)
[2020-07-07] MEDS: dexamethasone 4 mg/mL INJ 6 MG IVP (10:09)
[2020-07-07] MEDS: cholecalciferol (vitamin D3) 5,000 unit Tablet 5000 UNIT PO (10:09)
[2020-07-07] MEDS: folic acid 1 mg Tablet PO (10:09)
[2020-07-07] MEDS: aspirin 81 mg Chew Tablet PO (10:10)
[2020-07-07] MEDS: cyanocobalamin 1,000 mcg Tablet 1000 MCG PO (10:10)
[2020-07-07] MEDS: ascorbic acid 500 mg Tablet PO (10:10)
[2020-07-07] MEDS: zinc gluconate 50 mg Tablet 100 MG PO (10:10)
[2020-07-07] MEDS: phosphorus 250 mg Tablet PO ×2 (10:10→18:11)
[2020-07-07 10:50] LABS: Glucose Point of Care 141 mg/dL (70-110)
--- NOTE | 2020-07-07 11:17 | PM.PN ---
Subjective Subjective: Interval history: This morning patient was examined, she is on minimal sedation, he does follow some sister squeezing my fingers, she opens her eyes, overnight she did have some hypothermic episodes, is in normal sinus rhythm, Cardizem drip has been stopped, no bleeding events overnight, urine output was over 1300, she is off the Levophed, clinically she has stabilized from her sepsis, Vitals/I&O/Wt Last Vital Signs Temp 96.3 F L 07/07/20 09:00 Pulse 68 07/07/20 06:30 Resp 16 07/07/20 09:37 BP 112/91 07/07/20 06:30 Pulse Ox 93 07/07/20 06:30 07/06/20 07/07/20 07/07/20 22:59 06:59 14:59 Intake Total 1825 / 2125 100 / 2225 1581.596 / 1581.596 Output Total 700 / 700 552 / 1252 450 / 450 Balance 1125 / 1425 -452 / 973 1131.596 / 1131.596 Physical Exam Narrative: EXAM NARRATIVE: On minimal sedation does follow some commands Const: COMMON NORMALS: no acute distress GENERAL APPEARANCE: ill appearing NUTRITIONAL APPEARANCE: thin HENMT: COMMON NORMALS: normocephalic HEAD & SCALP: normocephalic Eye: COMMON NORMALS: Equal, round and reactive pupils present PUPIL: Yes Equal, round and reactive pupils present Neck/C-Spine: COMMON NORMALS: full ROM, no lymphadenopathy, no JVD and Thyroid normal THYROID: Thyroid normal OTHER: Right central line in place, left subclavian artery injury site, has a pressure dressing on top, no skin changes Lymph: LYMPHATIC: no lymphadenopathy noted Chest: COMMONS NORMALS: normal inspection of the chest Resp: COMMON NORMALS: normal respiratory effort, No retractions, No use of accessory muscles and clear to auscultation bilaterally AUSCULTATION: clear to auscultation bilaterally and wheezes Cardio: COMMON NORMALS: no JVD, regular rate, regular rhythm, S1 normal heart sound present, S2 normal heart sound present, No gallops present (Cardio), No clicks present (Cardio) and No murmurs present (Cardio) RATE: regular rate and tachycardic RHYTHM: regular rhythm and abnormal rhythm irregularly irregular HEART SOUNDS: S1 normal heart sound present and S2 normal heart sound present GI: COMMON NORMALS: Normal to inspection, nondistended, normoactive bowel sounds present, Soft to palpation, non-tender, No hepatosplenomegaly present, no masses and no bruits PALPATION: Yes Soft to palpation and Yes No hepatosplenomegaly present Extremity: COMMON NORMALS: normal to inspection, full ROM, capillary refill normal, no clubbing, cyanosis or edema and no pedal edema NARRATIVE EXTREMITY EXAM: Minimal skin mottling bilaterally Right upper extremity, radial and ulnar pulses palpable, good capillary refill Skin: NARRATIVE SKIN EXAM: Left arm: Levophed infiltration site, looks clean, dry, good blanching of the skin, no necrosis, no blocking Right neck central line placement, clean and dr Left neck, subclavian injury site, clean and dry, no signs of bleeding Urinary Catheter Management^: Kowalski: Cath Placed During This Visit: yes Reason for Continuing Indwelling Catheter: Accurate Measurement of Urinary Output in Critically Ill Patients Urinary Catheter Date of Insertion: 07/03/20 Urinary Catheter Time of Insertion: 13:27 Data : 07/07/20 03:20 07/07/20 03:20 Micro: Microbiology 07/05/20 18:05 MRSA Culture - Final Nose 07/05/20 09:00 Blood Culture - Preliminary Blood NEGATIVE TO DATE 07/05/20 08:40 Blood Culture - Preliminary Blood NEGATIVE TO DATE A&P Assessment and plan (1) Pneumonia due to 2019 novel coronavirus: Status: Acute (2) Atrial fibrillation with RVR: -Cardizem drip as above -Hold anticoagulation given subclavian injury Status: Acute (3) Type 2 diabetes mellitus: A1c, moderate dose sliding scale Status: Acute Qualifiers: Diabetes mellitus nursing home insulin use: unspecified nursing home insulin use status Diabetes mellitus complication status: with other specified complication Qualified Code(s): E11.69 - Type 2 diabetes mellitus with other specified complication (4) NSTEMI (non-ST elevated myocardial infarction): -Likely supply demand ischemia from acute respiratory failure, septic shock, lactic acidosis -Continue aspirin 81 mg, atorvastatin 40 mg -Echocardiogram shows EF of 55%, segmental wall motion analysis difficult to analyze because of arrhythmia, however no gross wall motion abnormalities were noted -Continue telemetry monitoring Status: Acute (5) Septic shock: Status: Acute (6) Acute respiratory failure with hypoxia: -Secondary to COVID-19 pneumonia, secondary bacterial infection, UTI, pulmonary edema -Evidence of multiorgan failure, resolving -Evidence of DIC resolving -A. fib with RVR, resolved -Evidence of septic shock, resolved -CT of the chest shows bilateral lower lobe atelectasis and pneumonia, minimal peripheral pulmonary infiltrates -Respiratory cultures growing strep pneumoniae, urine cultures growing Pseudomonas -COVID-19 PCR, and rapid was positive PLAN: -Admit to viral ICU -Patient is a full code --Patient's DPOA is Sukh Andrade counts [phone], I have already updated on patient's status -Prognosis is guarded, status is stable -Right central line in place, x-ray no pneumothorax, tip over SVC -Resume heparin drip hypercoagulability associate with COVID-19 -Anemia likely secondary to bone marrow suppression, acute renal failure, sepsis hemoglobin down to 10.7, no overt signs of bleeding, continue Protonix, status post 2 units PRBC, heparin drip will be carefully resume today -On the ventilator, minimize PEEP, minimize FiO2, daily sedation vacations, weaning trial, hopefully extubate in the next 24 to 48 hours -pH this morning 7.41, PCO2 45.2, bicarb 20.6, on 50% -Fentanyl and propofol for sedation -Decadron -Remdesivir on hold, continue to hold, as patient has clinically improved without it, will consider starting it if needed -Broad-spectrum antibiotics Primaxin, azithromycin, vancomycin was stopped yesterday -White blood cell count 15.2, pro-Tony 1.5 -tube feeds, Jevity, low-dose sliding scale, Levemir 10 units twice daily, maintain blood sugars between 180-225 -Fluids have been stopped for hypovolemic hyponatremia, urine output 1350 cc, creatinine 1.1, monitor for now as she is positive, will consider giving a dose of Lasix in the evening -Normal sinus rhythm, Cardizem drip on hold - Levophed, maintain MAP greater than 65, currently stopped -Follow urine cultures Pseudomonas, blood cultures negative so far, respiratory cultures strep pneumoniae, urine bacterial antigens -Follow serial inflammatory markers -Daily EKGs to monitor QTC -Consult pulmonary service PLAN: Continue to clinically monitor, daily spontaneous breathing trial, consider giving Lasix in the evening, remdesivir on hold we will consider starting it based on clinical progress, plan on extubating in the next 24 to 48 hours, heparin resumed today, monitor hemoglobin closely Status: Acute (7) Acute renal insufficiency: -Acute kidney injury, secondary to sepsis, secondary to dehydration, creatinine 1.1 -Not performed cc, continue to monitor as above Status: Acute (8) DIC (disseminated intravascular coagulation): Status: Acute (9) Hypernatremia: Status: Acute (10) Secondary bacterial pneumonia: Status: Acute (11) Lactic acidosis: Status: Acute (12) UTI (urinary tract infection): Primaxin as above, CT abdomen pelvis shows left nephrolithiasis, small stone in proximal left ureter, no evidence hydronephrosis, urine growing Pseudomonas Status: Acute (13) Dehydration with hypernatremia: -Hypovolemic hypernatremia - Status: Acute (14) Transaminitis: Status: Acute (15) Injury of left subclavian artery: -ct chest showed: The catheter entering along the left side of the neck is intra arterial in position with its tip in the ascending thoracic aorta. -us LUE showed;Patent left subclavian, axillary, brachial, distal radial and ulnar arteries. The proximal and mid brachial, radial and ulnar arteries were not visualized Possibly no significant arterial obstruction, based on the above findings. Technically somewhat limited study -Site looks clean and dry, no active bleeding pressure dressing applied -It has been more than 48 hours since her arterial injury -No active bleeding around site -unFortunately Dr. Dias is not on for cardiothoracic surgery Status: Acute Attestations Medical Necessity Statement*: Patient requires hospitalization, acute hypoxic respiratory failure secondary to COVID-19 pneumonia, secondary bacterial pneumonia, sepsis, A. fib, acute renal failure, Coding Level of Care Code Acute Marketing Communications Manager for [facility] Diagnoses Pneumonia due to 2019 novel coronavirus U07.1; J12.89 Atrial fibrillation with RVR I48.91 Type 2 diabetes mellitus E11.69 Diabetes mellitus exterminator helper termite insulin use: unspecified nursing home insulin use status Diabetes mellitus complication status: with other specified complication NSTEMI (non-ST elevated myocardial infarction) I21.4 Septic shock A41.9; R65.21 Acute respiratory failure with hypoxia J96.01 Acute renal insufficiency N28.9 DIC (disseminated intravascular coagulation) D65 Hypernatremia E87.0 Secondary bacterial pneumonia J15.9 Lactic acidosis E87.2 UTI (urinary tract infection) N39.0 Dehydration with hypernatremia E87.0 Transaminitis R74.01 Injury of left subclavian artery S25.102A
[2020-07-07 11:22] LABS: Glucose Point of Care 158 mg/dL (70-110)
[2020-07-07 11:28] LABS: Partial Thromboplastin Time 24.2 SECONDS (23.9-36.7)
--- NOTE | 2020-07-07 11:41 | PM.PN ---
Subjective Subjective: Interval history: Patient seen at bedside today morning -Opening eyes on fentanyl 75 and propofol 10 -Off pressors -Increasing urine output Medications: Reviewed: Yes Medication Review Details: Current Medications Albuterol/Ipratropium (Ipratropium-Albuterol 3 Ml Neb) 3 ml INHALATION Q4H.RESPIRATORY PRN PRN Reason: SHORTNESS OF BREATH Last Admin: 07/05/20 00:45 Dose: 3 ml Documented by: Ascorbic Acid (Ascorbic Acid 500 Mg Tablet) 500 mg PO DAILY [facility] Last Admin: 07/04/20 09:06 Dose: 500 mg Documented by: Aspirin (Aspirin 81 Mg Chew Tablet) 81 mg PO DAILY [facility] Last Admin: 07/04/20 09:07 Dose: 81 mg Documented by: Atorvastatin Calcium (Atorvastatin 40 Mg Tablet) 20 mg PO DAILY [facility] Last Admin: 07/04/20 09:06 Dose: 20 mg Documented by: Cyanocobalamin (Cyanocobalamin 1,000 Mcg Tablet) 1,000 mcg PO DAILY [facility] Last Admin: 07/04/20 09:07 Dose: 1,000 mcg Documented by: Dexamethasone (Dexamethasone 4 Mg/Ml Inj) 6 mg IVP Q24H [facility] Last Admin: 07/04/20 08:37 Dose: 6 mg Documented by: Dextrose (Dextrose 50% Syringe 50 Ml) 25 ml IVP ONCE PRN; Protocol PRN Reason: hypoglycemia protocol Dextrose (Dextrose 50% Syringe 50 Ml) 50 ml IVP PRN PRN; Protocol PRN Reason: hypoglycemia protocol Enoxaparin Sodium (Enoxaparin 60 Mg/0.6 Ml Syringe) 60 mg SUBCUT Q24H [facility] Folic Acid (Folic Acid 1 Mg Tablet) 1 mg PO DAILY [facility] Last Admin: 07/04/20 09:07 Dose: 1 mg Documented by: Glucagon (Glucagon 1 Mg/Ml Inj 1 Ml) 1 mg IM ONCE PRN; Protocol PRN Reason: Adult Acute Hypoglycemia Prot. Fentanyl 1,000 mcg/ Sodium (Chloride) 100 mls @ 0 mls/hr IV .Q0M [facility]; Protocol Last Admin: 07/04/20 21:47 Dose: 100 mcg/hr, 10 mls/hr Documented by: remdesivir (EUA) 100 mg/ (Sodium Chloride) 100 mls @ 100 mls/hr IV Q24H [facility] Propofol (Diprivan) 1,000 mg in 100 mls @ 0 mls/hr IV .Q0M [facility]; Protocol Last Titration: 07/05/20 00:30 Dose: 10 mcg/kg/min, 3.7 mls/hr Documented by: Vancomycin HCl 1,000 mg/ (Sodium Chloride) 250 mls @ 250 mls/hr IV Q24H [facility]; Protocol Last Admin: 07/05/20 00:07 Dose: 250 mls/hr Documented by: Azithromycin 500 mg/ Sodium (Chloride) 250 mls @ 250 mls/hr IV Q24H [facility]; Protocol Last Admin: 07/04/20 17:34 Dose: 250 mls/hr Documented by: Norepinephrine Bitartrate 4 mg (/ Dextrose) 254 mls @ 0 mls/hr IV .Q0M [facility]; Protocol Last Titration: 07/05/20 00:30 Dose: 0 mcg/min, 0 mls/hr Documented by: Dextrose (D5w) 500 mls @ 100 mls/hr IV ONCE PRN; Protocol PRN Reason: Adult Acute Hypoglycemia Prot Sodium Chloride (Sodium Chloride 0.45%) 1,000 mls @ 100 mls/hr IV .Q10H [facility] Last Admin: 07/05/20 00:07 Dose: 100 mls/hr Documented by: Imipenem/Cilastatin Sodium 250 (mg/ Sodium Chloride) 100 mls @ 200 mls/hr IV Q6H [facility] Last Admin: 07/05/20 03:37 Dose: 200 mls/hr Documented by: Diltiazem HCl 125 mg/ Sodium (Chloride) 125 mls @ 0 mls/hr IV .Q0M [facility]; Protocol Last Titration: 07/05/20 04:12 Dose: Infused Documented by: Insulin Aspart (Insulin Aspart 100 Unit/1 Ml) 0 unit SUBCUT TIDWM [facility]; Protocol Last Admin: 07/04/20 17:34 Dose: 6 unit Documented by: Naloxone HCl (Naloxone 0.4 Mg/Ml Sdv) 0.1 mg IVP Q2M PRN PRN Reason: OPIATERV Nitroglycerin (Nitroglycerin 1 Gm/Inch Oint Pkt) 1 inch TOPICAL Q12H [facility] Stop: 07/05/20 13:14 Last Admin: 07/05/20 01:49 Dose: 1 inch Documented by: Ondansetron HCl (Ondansetron 2 Mg/Ml Sdv 2 Ml) 4 mg IVP Q8H PRN PRN Reason: vomiting, or N/V if npo Pantoprazole Sodium (Pantoprazole 40 Mg Sdv) 40 mg IVP Q24H [facility] Last Admin: 07/04/20 17:34 Dose: 40 mg Documented by: Sodium Bicarbonate (Sodium Bicarbonate 8.4% 1 Meq/Ml 50ml Syr) 50 meq IVP ONCE ONE Stop: 07/05/20 08:01 Valproic Acid (Valproic Acid 250 Mg/5 Ml Udc) 250 mg PO BID [facility] Last Admin: 07/04/20 17:34 Dose: 250 mg Documented by: Vitamin D (Cholecalciferol (Vitamin D3) 5,000 Unit Tablet) 5,000 unit PO DAILY [facility] Last Admin: 07/04/20 09:07 Dose: 5,000 unit Documented by: Zinc Gluconate (Zinc Gluconate 50 Mg Tablet) 100 mg PO DAILY [facility] Last Admin: 07/04/20 09:06 Dose: 100 mg Documented by: Vitals/I&O/Wt Last Vital Signs Temp 96.8 F L 07/07/20 11:34 Pulse 68 07/07/20 06:30 Resp 16 07/07/20 09:37 BP 112/91 07/07/20 06:30 Pulse Ox 93 07/07/20 06:30 07/06/20 07/07/20 07/07/20 22:59 06:59 14:59 Intake Total 1825 / 2125 100 / 2225 1681.596 / 1681.596 Output Total 700 / 700 552 / 1252 450 / 450 Balance 1125 / 1425 -452 / 973 1231.596 / 1231.596 Physical Exam Narrative: EXAM NARRATIVE: PHYSICAL EXAM: General: lying in bed, sedated and intubated-opening eyes does not follow commands clearly yet HEENT:NCAT, PERRLA, EOMI Neck: Supple Lungs: Clear, Heart: s1/s2, RRR Abd: soft, NT, ND, BS + Normoactive Extremities: No edema COMPOSITE TECHNICIAN: Opening eyes, sedated and limited COMPOSITE TECHNICIAN exam possible. SKIN: no rash LDA: # CVC: Right IJ line 07/04/2020 #Urine Lieberman 07/03/2020 Urinary Catheter Management^: Lieberman: Cath Placed During This Visit: yes Reason for Continuing Indwelling Catheter: Accurate Measurement of Urinary Output in Critically Ill Patients Urinary Catheter Date of Insertion: 07/03/20 Urinary Catheter Time of Insertion: 13:27 Data : 07/07/20 03:20 07/07/20 03:20 Micro: Microbiology 07/05/20 18:05 MRSA Culture - Final Nose 07/05/20 09:00 Blood Culture - Preliminary Blood NEGATIVE TO DATE 07/05/20 08:40 Blood Culture - Preliminary Blood NEGATIVE TO DATE A&P Assessment and plan (1) Pneumonia due to 2019 novel coronavirus: Status: Acute (2) Atrial fibrillation with RVR: Status: Acute (3) Type 2 diabetes mellitus: Status: Acute Qualifiers: Diabetes mellitus retirement insulin use: unspecified [employer] insulin use status Diabetes mellitus complication status: with other specified complication Qualified Code(s): E11.69 - Type 2 diabetes mellitus with other specified complication (4) NSTEMI (non-ST elevated myocardial infarction): Status: Acute (5) Septic shock: Status: Acute (6) Acute respiratory failure with hypoxia: Status: Acute (7) Acute renal insufficiency: Status: Acute (8) DIC (disseminated intravascular coagulation): Status: Acute (9) Hypernatremia: Status: Acute Assessment and plan: 75 year old female with PMH of TIA, frequent UTIs, COPD, HTN, type 2 DM, GERD, chronic back pain, depression and anxiety, possible CVA requiring transfer to [place] on June 14, 2019 admitted to viral ICU for acute hypoxic respiratory failure secondary to pneumonia, acute hypernatremia secondary to sepsis related dehydration and acute renal failure. COVID-19 rapid antigen positive NEURO: #Altered mental status on presentation could be due to hypernatremia due to dehydration/sepsis and possible underlying dementia -Hypernatremia resolved -Patient opening eyes but not yet following commands yet -Recommended to DC propofol and taper down fentanyl and continue am awakening trial #sedation -[id number], fentanyl 100 PULM: #Acute hypoxic respiratory failure likely due to strep pneumonia -Recently tested positive for Covid 3 weeks back in half-way -Rapid Covid antigen positive -Intubated on arrival to ER for sats initially 80s on 15 L -CMV 450/14/PEEP 10 / 50% -ABG today morning 7.4 1/45/66/28/on 450/14/10/50 percent FiO2 volume control mode -CXR Bilateral pulmonary infiltrates unchanged -BNP 870 -Endotracheal tube aspirate strep pneumonia sensitive to penicillin but patient is penicillin allergic-currently on imipenem -Taper down sedation and if mentation improves then try breathing trial and plan to extubate accordingly CVS: #Shock - most likely sepsis-resolved #Troponinemia-could be secondary to demand ischemia due to sepsis/TODD -Off Levophed -BNP 870 today -Aspirin, Lipitor -Echo EF 55% with moderate TR and increased PAP 36 #A. fib with RVR likely due to sepsis - currenlty NSR -Off Cardizem-rate controlled GI: -Tube feeding Jevity at 55 mL/h -On bowel regimen senna at bedtime -Stool noted in rectal tube RENAL: #TODD-likely due to hypoperfusion secondary to dehydration/sepsis/NSTEMI #Hypovolemic hyponatremia likely secondary to sepsis related dehydration -Off pressor -Improving renal functions and urine output and normal electrolytes -Yesterday +900 cc after 2 PRBC transfusion -If patient continues to be positive by today evening will recommend to give Lasix 40 dose today evening --Strict I/O -Continue lieberman cath -Avoid nephrotoxins -Replace lytes prn #Renal stones -CT abdomen pelvis shows left nephrolithiasis, small stone in proximal left ureter, no evidence hydronephrosis, HEM: H&H -stable s/p 2 PRBC-monitor CBC and transfuse if H&H less than 03/09 or active bleeding noted with hemodynamic compromise Plts stable,will trend earlier Coagulation profile suggestive of DIC-today it looks normal DVT prophylaxis: As there is no active bleeding noted-can start heparin drip Recent injury to left carotid artery while placing central line-currently no bleeding noted ENDO: Hyperglycemia -sugars well controlled on high-dose SSI and check POCT Q6H -If consecutive readings of greater than 400 switch to IV insulin ID: -Septic shock secondary to strep pneumonia and Pseudomonas UTI -Shock resolved -afebrile, leukocytosis trending 15 K improving -Lactic acidosis improving -Initial procalcitonin high -Endotracheal aspirate positive for strep pneumonia -Recent COVID-19 test +3 weeks ago in half-way-repeat COVID-19 testing positive -Elevated inflammatory markers-unlikely due to bacterial pneumonia and UTI-less likely due to Covid -Coagulation profile suggestive of DIC with fibrin degradation products positive but now normalized -Treat underlying pneumonia with imipenem, azithromycin, dexamethasone -Can DC dexamethasone azithromycin and no need to start remdesivir as patient inflammatory markers are getting better and septic shock improving while treating septic shock secondary to strep pneumonia and Pseudomonas UTI. -MRSA nares negative -can DC vancomycin Recommendations conveyed to hospitalist covering the patient Overall pt with acute hypoxic respiratory failure and septic shock all secondary to strep pneumonia and possible Pseudomonas UTI along with underlying COVID 19. Hypernatremia related to dehyration/hypoperfusion due to sepsis leading to prerenal renal failure improving. Attestations Medical Necessity Statement*: acute hypoxic respiratory failure and septic shock all secondary to strep pneumonia and possible Pseudomonas UTI along with underlying COVID 19-still mechanically ventilated. Hypernatremia related to dehyration/hypoperfusion due to sepsis leading to prerenal renal failure improving. Time Spent in Patient Care: Greater than 35 minutes (>than 50% of time spent in counselling and/or direct pt care on unit). Critical Care Time: Critical Care Time (min): 45 Coding Level of Care Code Acute Rnfa for [facility] Fwd Diagnoses Pneumonia due to 2019 novel coronavirus U07.1; J12.89 Atrial fibrillation with RVR I48.91 Type 2 diabetes mellitus E11.69 Diabetes mellitus superintendent [employer] insulin use: unspecified retirement insulin use status Diabetes mellitus complication status: with other specified complication NSTEMI (non-ST elevated myocardial infarction) I21.4 Septic shock A41.9; R65.21 Acute respiratory failure with hypoxia J96.01 Acute renal insufficiency N28.9 DIC (disseminated intravascular coagulation) D65 Hypernatremia E87.0
[2020-07-07] MEDS: heparin drip 25,000 UNIT/500 ML PREMIX 17 UNIT IV (11:54)
--- NOTE | 2020-07-07 12:34 | PM.PN ---
Subjective Subjective: Interval history: Remains intubated and mechanically ventilated. Sedation has been switched off, however she is yet to wake up to interact. She did receive 2 units of packed red blood cells yesterday. She still has global anasarca. Ventilator settings remained stable with FiO2 50% and PEEP of 10. Robust urine output. Medications: Reviewed: Yes Medication Review Details: Current Medications Albuterol/Ipratropium (Ipratropium-Albuterol 3 Ml Neb) 3 ml INHALATION Q4H.RESPIRATORY PRN PRN Reason: SHORTNESS OF BREATH Last Admin: 07/05/20 00:45 Dose: 3 ml Documented by: Ascorbic Acid (Ascorbic Acid 500 Mg Tablet) 500 mg PO DAILY [facility] Last Admin: 07/04/20 09:06 Dose: 500 mg Documented by: Aspirin (Aspirin 81 Mg Chew Tablet) 81 mg PO DAILY [facility] Last Admin: 07/04/20 09:07 Dose: 81 mg Documented by: Atorvastatin Calcium (Atorvastatin 40 Mg Tablet) 20 mg PO DAILY [facility] Last Admin: 07/04/20 09:06 Dose: 20 mg Documented by: Cyanocobalamin (Cyanocobalamin 1,000 Mcg Tablet) 1,000 mcg PO DAILY [facility] Last Admin: 07/04/20 09:07 Dose: 1,000 mcg Documented by: Dexamethasone (Dexamethasone 4 Mg/Ml Inj) 6 mg IVP Q24H [facility] Last Admin: 07/04/20 08:37 Dose: 6 mg Documented by: Dextrose (Dextrose 50% Syringe 50 Ml) 25 ml IVP ONCE PRN; Protocol PRN Reason: hypoglycemia protocol Dextrose (Dextrose 50% Syringe 50 Ml) 50 ml IVP PRN PRN; Protocol PRN Reason: hypoglycemia protocol Enoxaparin Sodium (Enoxaparin 60 Mg/0.6 Ml Syringe) 60 mg SUBCUT Q24H [facility] Folic Acid (Folic Acid 1 Mg Tablet) 1 mg PO DAILY [facility] Last Admin: 07/04/20 09:07 Dose: 1 mg Documented by: Glucagon (Glucagon 1 Mg/Ml Inj 1 Ml) 1 mg IM ONCE PRN; Protocol PRN Reason: Adult Acute Hypoglycemia Prot. Fentanyl 1,000 mcg/ Sodium (Chloride) 100 mls @ 0 mls/hr IV .Q0M [facility]; Protocol Last Admin: 07/04/20 21:47 Dose: 100 mcg/hr, 10 mls/hr Documented by: remdesivir (EUA) 100 mg/ (Sodium Chloride) 100 mls @ 100 mls/hr IV Q24H [facility] Propofol (Diprivan) 1,000 mg in 100 mls @ 0 mls/hr IV .Q0M [facility]; Protocol Last Titration: 07/05/20 00:30 Dose: 10 mcg/kg/min, 3.7 mls/hr Documented by: Vancomycin HCl 1,000 mg/ (Sodium Chloride) 250 mls @ 250 mls/hr IV Q24H [facility]; Protocol Last Admin: 07/05/20 00:07 Dose: 250 mls/hr Documented by: Azithromycin 500 mg/ Sodium (Chloride) 250 mls @ 250 mls/hr IV Q24H [facility]; Protocol Last Admin: 07/04/20 17:34 Dose: 250 mls/hr Documented by: Norepinephrine Bitartrate 4 mg (/ Dextrose) 254 mls @ 0 mls/hr IV .Q0M [facility]; Protocol Last Titration: 07/05/20 00:30 Dose: 0 mcg/min, 0 mls/hr Documented by: Dextrose (D5w) 500 mls @ 100 mls/hr IV ONCE PRN; Protocol PRN Reason: Adult Acute Hypoglycemia Prot Sodium Chloride (Sodium Chloride 0.45%) 1,000 mls @ 100 mls/hr IV .Q10H [facility] Last Admin: 07/05/20 00:07 Dose: 100 mls/hr Documented by: Imipenem/Cilastatin Sodium 250 (mg/ Sodium Chloride) 100 mls @ 200 mls/hr IV Q6H [facility] Last Admin: 07/05/20 03:37 Dose: 200 mls/hr Documented by: Diltiazem HCl 125 mg/ Sodium (Chloride) 125 mls @ 0 mls/hr IV .Q0M [facility]; Protocol Last Titration: 07/05/20 04:12 Dose: Infused Documented by: Insulin Aspart (Insulin Aspart 100 Unit/1 Ml) 0 unit SUBCUT TIDWM [facility]; Protocol Last Admin: 07/04/20 17:34 Dose: 6 unit Documented by: Naloxone HCl (Naloxone 0.4 Mg/Ml Sdv) 0.1 mg IVP Q2M PRN PRN Reason: OPIATERV Nitroglycerin (Nitroglycerin 1 Gm/Inch Oint Pkt) 1 inch TOPICAL Q12H [facility] Stop: 07/05/20 13:14 Last Admin: 07/05/20 01:49 Dose: 1 inch Documented by: Ondansetron HCl (Ondansetron 2 Mg/Ml Sdv 2 Ml) 4 mg IVP Q8H PRN PRN Reason: vomiting, or N/V if npo Pantoprazole Sodium (Pantoprazole 40 Mg Sdv) 40 mg IVP Q24H [facility] Last Admin: 07/04/20 17:34 Dose: 40 mg Documented by: Sodium Bicarbonate (Sodium Bicarbonate 8.4% 1 Meq/Ml 50ml Syr) 50 meq IVP ONCE ONE Stop: 07/05/20 08:01 Valproic Acid (Valproic Acid 250 Mg/5 Ml Udc) 250 mg PO BID [facility] Last Admin: 07/04/20 17:34 Dose: 250 mg Documented by: Vitamin D (Cholecalciferol (Vitamin D3) 5,000 Unit Tablet) 5,000 unit PO DAILY [facility] Last Admin: 07/04/20 09:07 Dose: 5,000 unit Documented by: Zinc Gluconate (Zinc Gluconate 50 Mg Tablet) 100 mg PO DAILY [facility] Last Admin: 07/04/20 09:06 Dose: 100 mg Documented by: Vitals/I&O/Wt Last Vital Signs Temp 96.8 F L 07/07/20 11:34 Pulse 68 07/07/20 06:30 Resp 16 07/07/20 09:37 BP 112/91 07/07/20 06:30 Pulse Ox 93 07/07/20 06:30 07/06/20 07/07/20 07/07/20 22:59 06:59 14:59 Intake Total 1825 / 2125 450.117 / 2575.117 1681.596 / 1681.596 Output Total 700 / 700 552 / 1252 450 / 450 Balance 1125 / 1425 -101.883 / 9615.680 8978.596 / 1231.596 Physical Exam Narrative: EXAM NARRATIVE: Per RN Patient intubated and vented Rales in bases of lungs Belly soft, BS Ext without edema Grossly non focal but sedated on the vent Urinary Catheter Management^: Kowalski: Cath Placed During This Visit: yes Reason for Continuing Indwelling Catheter: Accurate Measurement of Urinary Output in Critically Ill Patients Urinary Catheter Date of Insertion: 07/03/20 Urinary Catheter Time of Insertion: 13:27 Data : 07/07/20 03:20 07/07/20 03:20 Micro: Microbiology 07/05/20 18:05 MRSA Culture - Final Nose 07/05/20 09:00 Blood Culture - Preliminary Blood NEGATIVE TO DATE 07/05/20 08:40 Blood Culture - Preliminary Blood NEGATIVE TO DATE A&P Additional A&P Information 1. Oligoanuric renal failure. Likely to have profound prerenal azotemia, also a high risk of developing ATN both from renal hypoperfusion and sepsis. Creatinine remains stable and urine output remains robust Avoid usual nephrotoxic agents Strict ins and outs 2. Hypernatremia Improved, on free water flushes 3. Vent dependent respiratory failure Secondary to Covid, possible superimposed pneumonia On combination antibiotics including vancomycin, Primaxin, azithromycin Dexamethasone Remdesivir Vent management per ICU team Weaning as tolerated Acute renal issues have now resolved. We will watch this case peripherally at this time. Please not hesitate to contact our team should further renal assistance be required. Interview performed via telemedicine with the aid of the bedside nurse. Albert Hitchcock MD [phone] Attestations Medical Necessity Statement*: Evaluation and management of acute kidney injury Coding Level of Care Code Acute Cat Cracker Operator for Michael Catalan
[2020-07-07 14:58] LABS: Coronavirus Lab Test PTC Positive
[2020-07-07] MEDS: pantoprazole 40 mg SDV IVP (16:04)
[2020-07-07] MEDS: azithromycin 500 MG in sodium chloride 0.9% 250 ML 250 MG IV (16:04)
[2020-07-07 17:56] LABS: Glucose Point of Care 179 mg/dL (70-110)
[2020-07-07 18:54] LABS: Partial Thromboplastin Time 41.3 SECONDS (23.9-36.7)
[2020-07-07 19:55] LABS: Glucose Point of Care 173 mg/dL (70-110)
[2020-07-07] MEDS: heparin 5,000 unit/mL INJ 1 mL IV (22:12)
[2020-07-07] MEDS: atorvastatin 40 mg Tablet 20 MG PO (22:13)
[2020-07-07 23:27] LABS: Glucose Point of Care 171 mg/dL (70-110)
[2020-07-08] VITALS (110 sets, daily range): BP systolic 84–158; BP diastolic 46–95; PULSE 67–119; RESP 14–24; TEMP 36.4–37.8; O2SAT 91–99
[2020-07-08 01:31] LABS: Partial Thromboplastin Time 193.6 SECONDS (23.9-36.7)
[2020-07-08 02:41] LABS: Hematocrit 33.5 % (37.0-47.0); Hemoglobin 10.9 g/dL (11.5-15.3); Mean Corpuscular HGB Conc 32.5 g/dL (30.0-36.0); Mean Corpuscular Volume 95.2 fL (81-99); Mean Platelet Volume 12.9 fL (7.4-10.4); Platelet Count 171 10^3/cmm (130-400); Red Blood Count 3.52 10^6/uL (4.1-5.3); Red Cell Distribution Width 15.4 % (12.1-15.1); White Blood Count 19.1 10^3/uL (4.0-10.0)
[2020-07-08 03:05] LABS: Alanine Aminotransferase 17 U/L (0-33); Albumin Level 2.1 g/dL (3.5-5.2); Alkaline Phosphatase 89 IU/L (35-105); Anion Gap 11.9 (5-19); Aspartate Amino Transferase 24 U/L (0-32); Blood Urea Nitrogen 37 mg/dL (8-23); C Reactive Protein 13.3 mg/L (0.0-4.9); Carbon Dioxide 29 mmol/L (22-29); Chloride 107 mmol/L (98-107); Creatinine Clr Calc Pharmacy 56.6672; Globulin 2.5 g/dL (1.3-4.6); Glucose 157 mg/dL (65-115); Magnesium 1.9 mg/dL (1.7-2.3); Osmolality Calculated 310 mOsm/kg (285-295); Potassium 3.9 mmol/L (3.5-5.1); Sodium 144 mmol/L (136-145); Total Bilirubin 0.2 mg/dL (0.15-1.2); Total Protein 4.6 g/dL (6.6-8.7)
[2020-07-08 03:06] LABS: INR 1.12 (0.8-1.2)
[2020-07-08 03:08] LABS: D Dimer 2.39 ug/mIFEU (0-0.59)
[2020-07-08] MEDS: propofol 1,000 MG/100 ML INJ 3.7 MG IV (03:57)
--- NOTE | 2020-07-08 04:07 | PC.NURSE ---
ASSUMING CARE Upon change of shift patient on 15 mcg/kg/hour of propofol and 25 mcg/hour of fentanyl. Patient also has 55 mL/hour of Jevity 1.2 running.
[2020-07-08 04:09] LABS: Absolute Segmented Neutrophil 14.5 10/cmm (1.6-7.1); Eosinophils 0 %; Lymphocytes 10 %; Monocytes Absolute 1.1 10^3/cmm (0.1-0.6); Segmented Neutrophils 76 %; Total Cells Counted 100 (0-100)
[2020-07-08 04:10] LABS: Absolute Neutrophil 14.5 10^3/cmm (1.4-6.5); Blastocytes 0 % (0-0); Hypochromasia 1+; Platelet Estimate Normal (Normal)
[2020-07-08 04:11] LABS: ABG PCO2 40.5 mmHg (35-45); Arterial Blood Gas Hematocrit 34.2 % (37-47); Base Excess ABG 7.3 mmol/L (-2.0-2.0); Blood Gas Allen Test Pos; Blood Gas Sample Type Arterial; HCO3 ABG 31.2 mmol/L (22-26); PO2 ABG 61.2 mmHg (80.0-100.0)
[2020-07-08 04:13] LABS: Blood Gas Sample Site Radial, right; Blood Gas Tidal Volume 0.45; Oxygen Device VENT
[2020-07-08 04:14] LABS: Partial Thromboplastin Time 107.9 SECONDS (23.9-36.7)
--- NOTE | 2020-07-08 04:20 | PC.NURSE ---
PTT PTT at 0039 came back at 193.6. Physician notified, gave order to hold the drip until redrawn. Redraw at 0230 was 107.9. Physician notified of new result and gave order to start heparin gtt back 4 mL/hour lower than it was when put on hold. Restarting heparin gtt at 15 mL/hour and recheck PTT in 6 hours.
[2020-07-08 04:26] LABS: Reflex Lactate Order REFLEX LACTIC ORDERD
[2020-07-08 04:29] LABS: Creatine Phosphokinase 26 U/L (26-192); NT Pro B Type Natriuretic Pept 1610 pg/mL (0-125); Procalcitonin 0.86 ng/mL (0-0.5)
[2020-07-08 06:10] LABS: Glucose Point of Care 128 mg/dL (70-110)
--- NOTE | 2020-07-08 07:00 | XR_ITS ---
WS: [id number] Exam: XR chest 1V portable [id number] Date/Time of Exam: 07/08/2020 7:00 AM Reason For Exam: sob Comparison 07/07/2020. Bibasal infiltrates are unchanged. Normal cardiomediastinal structures. No pleural effusions. The donnell gs are fully expanded. ET tube is in satisfactory position ending about 3 cm above the thomas. An ent cathryn tube enters the stomach but the tip is not visible. Right-sided IJ catheter ends at the cavoatri al junction. XR/XR chest 1V portable [id number] IMPRESSION: 1. Bibasal infiltrates unchanged. 2. ET tube and enteric tube as well as central line all appear to be in good po sition.
[2020-07-08] MEDS: ipratropium-albuterol 3 mL Neb INHALATION ×2 (08:19→20:31)
[2020-07-08 08:21] LABS: Lactic Acid level (Lactate) 2.7 mmol/L (0.5-2.2)
--- NOTE | 2020-07-08 08:44 | CT_ITS ---
WS: [id number] CT HEAD NONCONTRAST HISTORY: ams TECHNIQUE: Contiguous axial imaging performed through the brain in 2.5 mm imaging. Bone and soft tiss ue windows. Sagittal and coronal reformats reviewed. All CT scans at [facility] use at ast one of these dose optimization techniques: automated exposure control; mA and/or kV adjustment pe r patient size (includes targeted exams where dose is matched to clinical indication); or iterative r econstruction. DLP: 1379.47 mGy.cm COMPARISON: 01/15/2020 No acute intracranial hemorrhage, midline shift or mass effect. Moderate symmetric atrophy and chronic microvascular ischemic disease. No significant progression sin ce the prior examination. No acute infarcts are appreciated. Ventricles: Ventricles and extra-axial spaces are prominent on the basis of central and peripheral a trophy. Patient is intubated. Paranasal sinuses: As visualized are clear. Mastoid air cells: Well pneumatized. Calvarium and scalp: Skull is intact with no soft tissue edema or swelling. CT/CT head wo con* [id number] IMPRESSION: 1. No acute intracranial hemorrhage or edema. 2. Moderate atrophy and chronic ischemic disease. No interval change.
[2020-07-08 09:36] LABS: Glucose Point of Care 119 mg/dL (70-110)
[2020-07-08] MEDS: cholecalciferol (vitamin D3) 5,000 unit Tablet 5000 UNIT PO (09:37)
[2020-07-08] MEDS: valproic acid 250 mg/5 mL UDC PO ×2 (09:37→17:41)
[2020-07-08] MEDS: folic acid 1 mg Tablet PO (09:37)
[2020-07-08] MEDS: cyanocobalamin 1,000 mcg Tablet 1000 MCG PO (09:37)
[2020-07-08] MEDS: aspirin 81 mg Chew Tablet PO (09:37)
[2020-07-08] MEDS: zinc gluconate 50 mg Tablet 100 MG PO (09:37)
[2020-07-08] MEDS: vancomycin 1,000 MG in sodium chloride 0.9% 250 ML 250 MG IV (09:38)
[2020-07-08] MEDS: ascorbic acid 500 mg Tablet PO (09:38)
[2020-07-08] MEDS: FUROsemide 10 mg/mL SDV 2mL 20 MG IVP (09:38)
[2020-07-08] MEDS: phosphorus 250 mg Tablet PO ×2 (09:38→17:41)
[2020-07-08] MEDS: dexamethasone 4 mg/mL INJ 6 MG IVP (09:38)
[2020-07-08 11:35] LABS: Glucose Point of Care 123 mg/dL (70-110)
--- NOTE | 2020-07-08 12:06 | PM.PN ---
Subjective Subjective: Interval history: This morning patient was examined, she remained afebrile overnight, normotensive, is off Levophed, remains in normal sinus rhythm, she was taken off sedation, her responses are minimal, she does open her eyes when stimulated, she does preferentially gaze to the left, she does attempt to cough and gag, does not really follow commands, remains on the ventilator, intubated, 50% FiO2, urine output 2 L Vitals/I&O/Wt Last Vital Signs Temp 98.9 F 07/08/20 08:00 Pulse 103 H 07/08/20 11:15 Resp 18 07/08/20 11:00 BP 138/88 07/08/20 11:15 Pulse Ox 92 07/08/20 11:15 07/07/20 07/08/20 07/08/20 22:59 06:59 14:59 Intake Total 1397.45 / 3079.046 140.577 / 3219.623 550.050 / 550.050 Output Total 375 / 1025 1050 / 2075 Balance 1022.45 / 2054.046 -909.423 / 1144.623 550.050 / 550.050 Physical Exam Const: COMMON NORMALS: alert ORIENTATION/CONSCIOUSNESS: not oriented to person, not oriented to place and not oriented to time OTHER: Intubated, ventilator, preferentially gazes to the left Eye: OTHER: Pupils bilaterally minimally reactive to light, preferentially gazes to the left Neck/C-Spine: COMMON NORMALS: no JVD Resp: COMMON NORMALS: normal respiratory effort, No retractions, No use of accessory muscles and clear to auscultation bilaterally AUSCULTATION: clear to auscultation bilaterally Cardio: COMMON NORMALS: no JVD, regular rate, regular rhythm, S1 normal heart sound present and S2 normal heart sound present RATE: regular rate RHYTHM: regular rhythm HEART SOUNDS: S1 normal heart sound present and S2 normal heart sound present GI: COMMON NORMALS: Normal to inspection, nondistended, normoactive bowel sounds present, Soft to palpation, non-tender, No hepatosplenomegaly present, no masses and no bruits PALPATION: Yes Soft to palpation and Yes No hepatosplenomegaly present Extremity: COMMON NORMALS: capillary refill normal, no clubbing, cyanosis or edema and no calf tenderness NARRATIVE EXTREMITY EXAM: Diffuse anasarca Neuro: SENSORIUM/ORIENTATION: Yes alert, No oriented to person, No oriented to place and No oriented to time OTHER: Does open her eyes to commands, does not really follow any other commands, Urinary Catheter Management^: Kowalski: Cath Placed During This Visit: yes Reason for Continuing Indwelling Catheter: Accurate Measurement of Urinary Output in Critically Ill Patients Urinary Catheter Date of Insertion: 07/03/20 Urinary Catheter Time of Insertion: 13:27 Data : 07/08/20 02:15 07/08/20 02:15 Micro: Microbiology 07/07/20 12:40 C.difficile Toxin B Gene (PCR) - Final Stool - Stool Aspirate A&P Assessment and plan (1) Pneumonia due to 2019 novel coronavirus: -Holding remdesivir for now Status: Acute (2) Atrial fibrillation with RVR: -Currently normal sinus rhythm -Cardizem drip as needed -Heparin drip Status: Acute (3) Type 2 diabetes mellitus: A1c, moderate dose sliding scale Status: Acute Qualifiers: 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: unspecified snf insulin use status Diabetes mellitus complication status: with other specified complication Qualified Code(s): E11.69 - Type 2 diabetes mellitus with other specified complication (4) NSTEMI (non-ST elevated myocardial infarction): -Likely supply demand ischemia from acute respiratory failure, septic shock, lactic acidosis -Continue aspirin 81 mg, atorvastatin 40 mg -Echocardiogram shows EF of 55%, segmental wall motion analysis difficult to analyze because of arrhythmia, however no gross wall motion abnormalities were noted -Continue telemetry monitoring Status: Acute (5) Septic shock: Resolved Status: Acute (6) Acute respiratory failure with hypoxia: -Secondary to COVID-19 pneumonia, secondary bacterial infection, UTI, pulmonary edema -Evidence of multiorgan failure, resolving -Evidence of DIC resolving -A. fib with RVR, resolved -Evidence of septic shock, resolved -CT of the chest shows bilateral lower lobe atelectasis and pneumonia, minimal peripheral pulmonary infiltrates -Respiratory cultures growing strep pneumoniae, urine cultures growing Pseudomonas -COVID-19 PCR, and rapid was positive -This morning, is minimally responsive, does preferentially gaze to the left PLAN: -Admit to viral ICU -Patient is a full code -Mentation, gaze to the left, minimally responsive, sedation currently on hold, reassess mental status, neurochecks, will order CT of the head rule out intracranial bleed versus stroke --Patient's DPOA is Sukh Andrade counts [id number], I have already updated on patient's status -Prognosis is guarded, status is stable -Right central line in place, x-ray no pneumothorax, tip over SVC -Resume heparin drip hypercoagulability associate with COVID-19 -Anemia likely secondary to bone marrow suppression, acute renal failure, sepsis hemoglobin down to 10.9, no overt signs of bleeding, continue Protonix, status post 2 units PRBC, heparin drip will be carefully resume today -On the ventilator, minimize PEEP, minimize FiO2, daily sedation vacations, weaning trial, -pH this morning pH 7.5, PO2 61.2, bicarb 31.2 -Fentanyl and propofol for sedation -Decadron -Remdesivir on hold, continue to hold, as patient has clinically improved without it, will consider starting it if needed -Broad-spectrum antibiotics Primaxin, azithromycin, white blood cell count 19, will restart vancomycin -White blood cell count 19.1, pro-Tony 0.86 -tube feeds, Jevity, low-dose sliding scale, Levemir 10 units twice daily, maintain blood sugars between 180-225 -Fluids have been stopped for hypovolemic hyponatremia, urine output 2075 cc, creatinine 0.8, has generalized edema, will give 20 mg of Lasix today, consider giving 40 mg in the evening -Normal sinus rhythm, Cardizem drip on hold - Levophed, maintain MAP greater than 65, currently stopped -Follow urine cultures Pseudomonas, blood cultures negative so far, respiratory cultures strep pneumoniae, urine bacterial antigens -Follow serial inflammatory markers -Daily EKGs to monitor QTC -Consult pulmonary service PLAN: Continue to clinically monitor, daily spontaneous breathing trial, consider giving Lasix in the evening, remdesivir on hold we will consider starting it based on clinical progress, plan on extubating in the next 24 to 48 hours, heparin resumed today, monitor hemoglobin closely Status: Acute (7) Acute renal insufficiency: -Acute kidney injury, secondary to sepsis, secondary to dehydration, creatinine 0.8 -Continue to monitor Status: Acute (8) DIC (disseminated intravascular coagulation): Resolving Status: Acute (9) Hypernatremia: Resolved Status: Acute (10) Secondary bacterial pneumonia: Status: Acute (11) Lactic acidosis: Lactic acid this morning 3.0 Status: Acute (12) UTI (urinary tract infection): Primaxin as above, CT abdomen pelvis shows left nephrolithiasis, small stone in proximal left ureter, no evidence hydronephrosis, urine growing Pseudomonas Status: Acute (13) Dehydration with hypernatremia: -Hypovolemic hypernatremia - Status: Acute (14) Transaminitis: Status: Acute (15) Injury of left subclavian artery: -ct chest showed: The catheter entering along the left side of the neck is intra arterial in position with its tip in the ascending thoracic aorta. -us LUE showed;Patent left subclavian, axillary, brachial, distal radial and ulnar arteries. The proximal and mid brachial, radial and ulnar arteries were not visualized Possibly no significant arterial obstruction, based on the above findings. Technically somewhat limited study -Site looks clean and dry, no active bleeding pressure dressing applied -It has been more than 48 hours since her arterial injury -No active bleeding around site -unFortunately Dr. Dias is not on for cardiothoracic surgery Status: Acute (16) IV infiltration: Left arm, area looks clean and dry, no skin mottling, good blanching, ultrasound over the area shows left cephalic vein thrombophlebitis Status: Acute Additional A&P Information Plan for today, assess neurologic status, will do CT of the head, continue weaning trial, consider giving another dose of Lasix this evening Attestations Medical Necessity Statement*: Patient requires hospitalization for acute hypoxic respiratory failure secondary to strep pneumoniae, COVID-19, Pseudomonas UTI, sepsis, DIC, TODD Coding Level of Care Code 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 [facility] Diagnoses Pneumonia due to 2019 novel coronavirus U07.1; J12.89 Atrial fibrillation with RVR I48.91 Type 2 diabetes mellitus E11.69 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
[2020-07-08 12:21] LABS: Partial Thromboplastin Time 38.6 SECONDS (23.9-36.7)
--- NOTE | 2020-07-08 15:57 | PC.SOCIAL ---
IMM Updated Updated pt's family on Pg 2 IMM. No questions voiced. Signed,dated, & timed copy in chart.
[2020-07-08 16:41] LABS: Lactate (Lactic Acid level) 2.7 mmol/L (0.5-2.2)
[2020-07-08] MEDS: pantoprazole 40 mg SDV IVP (16:41)
[2020-07-08] MEDS: azithromycin 500 MG in sodium chloride 0.9% 250 ML 250 MG IV (16:41)
[2020-07-08 17:34] LABS: Glucose Point of Care 197 mg/dL (70-110)
--- NOTE | 2020-07-08 18:45 | PC.NURSE ---
Received report on patient from Melani BARAHONA. Assumed care at this time.
--- NOTE | 2020-07-08 19:44 | P.PN_ITS ---
Subjective Subjective: Interval history: No acute events overnight Opens eyes but does not follow commands Was off sedation yesterday and was tachypneic Started back on low-dose sedation Medications: Reviewed: Yes Medication Review Details: Current Medications Albuterol/Ipratropium (Ipratropium-Albuterol 3 Ml Neb) 3 ml INHALATION Q4H.RESPIRATORY PRN PRN Reason: SHORTNESS OF BREATH Last Admin: 07/05/20 00:45 Dose: 3 ml Documented by: Ascorbic Acid (Ascorbic Acid 500 Mg Tablet) 500 mg PO DAILY [facility] Last Admin: 07/04/20 09:06 Dose: 500 mg Documented by: Aspirin (Aspirin 81 Mg Chew Tablet) 81 mg PO DAILY [facility] Last Admin: 07/04/20 09:07 Dose: 81 mg Documented by: Atorvastatin Calcium (Atorvastatin 40 Mg Tablet) 20 mg PO DAILY [facility] Last Admin: 07/04/20 09:06 Dose: 20 mg Documented by: Cyanocobalamin (Cyanocobalamin 1,000 Mcg Tablet) 1,000 mcg PO DAILY [facility] Last Admin: 07/04/20 09:07 Dose: 1,000 mcg Documented by: Dexamethasone (Dexamethasone 4 Mg/Ml Inj) 6 mg IVP Q24H [facility] Last Admin: 07/04/20 08:37 Dose: 6 mg Documented by: Dextrose (Dextrose 50% Syringe 50 Ml) 25 ml IVP ONCE PRN; Protocol PRN Reason: hypoglycemia protocol Dextrose (Dextrose 50% Syringe 50 Ml) 50 ml IVP PRN PRN; Protocol PRN Reason: hypoglycemia protocol Enoxaparin Sodium (Enoxaparin 60 Mg/0.6 Ml Syringe) 60 mg SUBCUT Q24H [facility] Folic Acid (Folic Acid 1 Mg Tablet) 1 mg PO DAILY [facility] Last Admin: 07/04/20 09:07 Dose: 1 mg Documented by: Glucagon (Glucagon 1 Mg/Ml Inj 1 Ml) 1 mg IM ONCE PRN; Protocol PRN Reason: Adult Acute Hypoglycemia Prot. Fentanyl 1,000 mcg/ Sodium (Chloride) 100 mls @ 0 mls/hr IV .Q0M [facility]; Protocol Last Admin: 07/04/20 21:47 Dose: 100 mcg/hr, 10 mls/hr Documented by: remdesivir (EUA) 100 mg/ (Sodium Chloride) 100 mls @ 100 mls/hr IV Q24H [facility] Propofol (Diprivan) 1,000 mg in 100 mls @ 0 mls/hr IV .Q0M [facility]; Protocol Last Titration: 07/05/20 00:30 Dose: 10 mcg/kg/min, 3.7 mls/hr Documented by: Vancomycin HCl 1,000 mg/ (Sodium Chloride) 250 mls @ 250 mls/hr IV Q24H [facility]; Protocol Last Admin: 07/05/20 00:07 Dose: 250 mls/hr Documented by: Azithromycin 500 mg/ Sodium (Chloride) 250 mls @ 250 mls/hr IV Q24H [facility]; Protocol Last Admin: 07/04/20 17:34 Dose: 250 mls/hr Documented by: Norepinephrine Bitartrate 4 mg (/ Dextrose) 254 mls @ 0 mls/hr IV .Q0M [facility]; Protocol Last Titration: 07/05/20 00:30 Dose: 0 mcg/min, 0 mls/hr Documented by: Dextrose (D5w) 500 mls @ 100 mls/hr IV ONCE PRN; Protocol PRN Reason: Adult Acute Hypoglycemia Prot Sodium Chloride (Sodium Chloride 0.45%) 1,000 mls @ 100 mls/hr IV .Q10H [facility] Last Admin: 07/05/20 00:07 Dose: 100 mls/hr Documented by: Imipenem/Cilastatin Sodium 250 (mg/ Sodium Chloride) 100 mls @ 200 mls/hr IV Q6H [facility] Last Admin: 07/05/20 03:37 Dose: 200 mls/hr Documented by: Diltiazem HCl 125 mg/ Sodium (Chloride) 125 mls @ 0 mls/hr IV .Q0M [facility]; Protocol Last Titration: 07/05/20 04:12 Dose: Infused Documented by: Insulin Aspart (Insulin Aspart 100 Unit/1 Ml) 0 unit SUBCUT TIDWM [facility]; Protocol Last Admin: 07/04/20 17:34 Dose: 6 unit Documented by: Naloxone HCl (Naloxone 0.4 Mg/Ml Sdv) 0.1 mg IVP Q2M PRN PRN Reason: OPIATERV Nitroglycerin (Nitroglycerin 1 Gm/Inch Oint Pkt) 1 inch TOPICAL Q12H [facility] Stop: 07/05/20 13:14 Last Admin: 07/05/20 01:49 Dose: 1 inch Documented by: Ondansetron HCl (Ondansetron 2 Mg/Ml Sdv 2 Ml) 4 mg IVP Q8H PRN PRN Reason: vomiting, or N/V if npo Pantoprazole Sodium (Pantoprazole 40 Mg Sdv) 40 mg IVP Q24H [facility] Last Admin: 07/04/20 17:34 Dose: 40 mg Documented by: Sodium Bicarbonate (Sodium Bicarbonate 8.4% 1 Meq/Ml 50ml Syr) 50 meq IVP ONCE ONE Stop: 07/05/20 08:01 Valproic Acid (Valproic Acid 250 Mg/5 Ml Udc) 250 mg PO BID [facility] Last Admin: 07/04/20 17:34 Dose: 250 mg Documented by: Vitamin D (Cholecalciferol (Vitamin D3) 5,000 Unit Tablet) 5,000 unit PO DAILY [facility] Last Admin: 07/04/20 09:07 Dose: 5,000 unit Documented by: Zinc Gluconate (Zinc Gluconate 50 Mg Tablet) 100 mg PO DAILY [facility] Last Admin: 07/04/20 09:06 Dose: 100 mg Documented by: Vitals/I&O/Wt Last Vital Signs Temp 100.0 F H 07/08/20 16:01 Pulse 103 H 07/08/20 18:45 Resp 20 H 07/08/20 18:45 BP 113/72 07/08/20 18:45 Pulse Ox 93 07/08/20 18:45 07/08/20 07/08/20 07/08/20 06:59 14:59 22:59 Intake Total 140.577 / 3219.623 2300.300 / 2300.300 814 / 3114.300 Output Total 1050 / 2075 1525 / 1525 575 / 2100 Balance -909.423 / 1144.623 775.300 / 775.300 239 / 1014.300 Physical Exam Narrative: EXAM NARRATIVE: PHYSICAL EXAM: General: lying in bed, sedated and intubated-opening eyes does not follow commands clearly yet HEENT:NCAT, PERRLA, EOMI Neck: Supple Lungs: Clear, Heart: s1/s2, RRR Abd: soft, NT, ND, BS + Normoactive Extremities: No edema 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 SKIN: no rash LDA: # CVC: Right IJ line 07/04/2020 #Urine Lieberman 07/03/2020 Urinary Catheter Management^: Lieberman: Cath Placed During This Visit: yes Reason for Continuing Indwelling Catheter: Accurate Measurement of Urinary Output in Critically Ill Patients Urinary Catheter Date of Insertion: 07/03/20 Urinary Catheter Time of Insertion: 13:27 Data : 07/08/20 02:15 07/08/20 02:15 Micro: Microbiology 07/07/20 12:40 C.difficile Toxin B Gene (PCR) - Final Stool - Stool Aspirate A&P Assessment and plan (1) Pneumonia due to 2019 novel coronavirus: Status: Acute (2) Atrial fibrillation with RVR: Status: Acute (3) Type 2 diabetes mellitus: Status: Acute Qualifiers: 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: unspecified jail insulin use status Diabetes mellitus complication status: with other specified complication Qualified Code(s): E11.69 - Type 2 diabetes mellitus with other specified complication (4) NSTEMI (non-ST elevated myocardial infarction): Status: Acute (5) Septic shock: Status: Acute (6) Acute respiratory failure with hypoxia: Status: Acute (7) Acute renal insufficiency: Status: Acute (8) DIC (disseminated intravascular coagulation): Status: Acute (9) Hypernatremia: Status: Acute Assessment and plan: 75 year old female with PMH of TIA, frequent UTIs, COPD, HTN, type 2 DM, GERD, chronic back pain, depression and anxiety, possible CVA requiring transfer to [place] on June 14, 2019 admitted to viral ICU for acute hypoxic respiratory failure secondary to pneumonia, acute hypernatremia secondary to sepsis related dehydration and acute renal failure. COVID-19 rapid antigen positive NEURO: #Altered mental status on presentation could be due to hypernatremia due to dehydration/sepsis and possible underlying dementia -Hypernatremia resolved -Patient opening eyes but not yet following commands yet -Recommended to DC propofol and taper down fentanyl and continue am awakening trial -As per shelter patient baseline mentation is alert and oriented -CT head did not show any acute intracranial hemorrhage or acute infarct or edema but showed moderate symmetric atrophy and chronic microvascular ischemic disease #sedation -[id number], fentanyl 25 PULM: #Acute hypoxic respiratory failure likely due to strep pneumonia -Recently tested positive for Covid 3 weeks back in shelter -Rapid Covid antigen positive -Intubated on arrival to ER for sats initially 80s on 15 L -CMV 450/14/PEEP 10 / 50% -ABG today morning 7.4 1/45/66/28/on 450/14/10/50 percent FiO2 volume control mode -CXR Bilateral pulmonary infiltrates unchanged -BNP 870 -Endotracheal tube aspirate strep pneumonia sensitive to penicillin but patient is penicillin allergic-currently on imipenem -Taper down sedation and if mentation improves then try breathing trial and plan to extubate accordingly CVS: #Shock - most likely sepsis-resolved #Troponinemia-could be secondary to demand ischemia due to sepsis/TODD - -Off Levophed -hemodynamically stable -Normal urine output but worsening BNP and lactic acidosis is concerning for TACO -aspirin, Lipitor -Echo EF 55% with moderate TR and increased PAP 36 -If continues to be in positive balance and recommended to give Lasix 41 dose #A. fib with RVR likely due to sepsis - currenlty NSR -Off Cardizem-rate controlled GI: -Tube feeding Jevity at 55 mL/h -On bowel regimen senna at bedtime -Stool noted in rectal tube RENAL: #TODD-likely due to hypoperfusion secondary to dehydration/sepsis -resolved #Hypovolemic hypERnatremia likely secondary to sepsis related dehydration - resolved -Clinically volume overloaded - off pressor -Improving renal functions and urine output and normal electrolytes; BUN correction is lagging -+ 1000 cc -If patient continues to be positive - will recommend to give Lasix 40 dose today evening -Strict I/O -Continue lieberman cath -Avoid nephrotoxins -Replace lytes prn #Renal stones -CT abdomen pelvis shows left nephrolithiasis, small stone in proximal left ureter, no evidence hydronephrosis, HEM: H&H -stable s/p 2 PRBC-monitor CBC and transfuse if H&H less than 03/09 or active bleeding noted with hemodynamic compromise Plts stable,will trend earlier Coagulation profile suggestive of DIC-labs normalized DVT prophylaxis: As there is no active bleeding noted-can start heparin drip Recent injury to left carotid artery while placing central line-currently no bleeding noted ENDO: Hyperglycemia -sugars well controlled on high-dose SSI and check POCT Q6H -If consecutive readings of greater than 400 switch to IV insulin ID: -Septic shock secondary to strep pneumonia and Pseudomonas UTI -Shock resolved -afebrile, [id number] K -Lactic acidosis 3 -Initial procalcitonin high -Endotracheal aspirate positive for strep pneumonia -Recent COVID-19 test +3 weeks ago in shelter-repeat COVID-19 testing positive -Elevated inflammatory markers-unlikely due to bacterial pneumonia and UTI-less likely due to Covid -Coagulation profile suggestive of DIC with fibrin degradation products positive but now normalized -Treat underlying pneumonia with imipenem, azithromycin, dexamethasone -Can DC dexamethasone azithromycin and no need to start remdesivir as patient inflammatory markers are getting better and septic shock improving while treating septic shock secondary to strep pneumonia and Pseudomonas UTI. -MRSA nares negative -can DC vancomycin Recommendations conveyed to hospitalist covering the patient Overall pt with acute hypoxic respiratory failure and septic shock all secondary to strep pneumonia and possible Pseudomonas UTI along with underlying COVID 19. Hypernatremia related to dehyration/hypoperfusion due to sepsis leading to prerenal renal failure improving. Major concern that he is preventing extubation is her mentation. If extubated with this equivocal mentation there are high chances of aspiration and reintubation in this elderly woman with chronic microvascular changes and atrophy of her brain. Family should be involved in decision making and goals of care should be established in case if patient needs reintubation. Attestations Medical Necessity Statement*: Patient requires hospitalization for acute hypoxic respiratory failure secondary to strep pneumoniae, COVID-19, Pseudomonas UTI, sepsis, DIC, TODD Time Spent in Patient Care: Greater than 35 minutes (>than 50% of time spent in counselling and/or direct pt care on unit) . 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
[2020-07-08 19:59] LABS: Partial Thromboplastin Time 32.3 SECONDS (23.9-36.7)
[2020-07-08] MEDS: atorvastatin 40 mg Tablet 20 MG PO (21:38)
[2020-07-08 21:50] LABS: Glucose Point of Care 134 mg/dL (70-110)
[2020-07-08] MEDS: LORazepam 2 mg/mL INJ 1 mL 1 MG IVP (22:46)
[2020-07-09] VITALS (57 sets, daily range): BP systolic 88–149; BP diastolic 51–81; PULSE 81–109; RESP 14–23; TEMP 35.9–36.8; O2SAT 90–100
[2020-07-09] MEDS: vancomycin 1,000 MG in sodium chloride 0.9% 250 ML 250 MG IV ×2 (03:00→20:54)
[2020-07-09] MEDS: ipratropium-albuterol 3 mL Neb INHALATION ×4 (03:41→23:55)
[2020-07-09 04:19] LABS: ABG PCO2 44.2 mmHg (35-45); Arterial Blood Gas Hematocrit 33.7 % (37-47); Base Excess ABG 10.3 mmol/L (-2.0-2.0); Blood Gas Allen Test Pos; Blood Gas Sample Site Radial, right; Blood Gas Sample Type Arterial; Blood Gas Tidal Volume 0.45; HCO3 ABG 34.6 mmol/L (22-26); Oxygen Device VENT
[2020-07-09 05:44] LABS: Basophils # 0.1 10^3/uL (0.0-0.1); Basophils % 0.3 %; Hematocrit 33.4 % (37.0-47.0); Hemoglobin 10.5 g/dL (11.5-15.3); Lymphocytes # 3.2 10^3/uL (0.8-4.8); Mean Corpuscular HGB Conc 31.4 g/dL (30.0-36.0); Mean Corpuscular Volume 98.5 fL (81-99); Mean Platelet Volume 13.7 fL (7.4-10.4); Monocytes # 1.4 10^3/uL (0.2-0.9); Monocytes % 5.9 %; Neutrophils # 16.97 10^3/uL (1.8-7.7); Neutrophils % 73.8 %; Nucleated Red Blood Cells # 0.1 /100WBC; Nucleated Red Blood Cells % 0.3 %; Platelet Count 173 10^3/cmm (130-400); Red Blood Count 3.39 10^6/uL (4.1-5.3); Red Cell Distribution Width 15.1 % (12.1-15.1)
[2020-07-09 05:58] LABS: INR 1.14 (0.8-1.2)
[2020-07-09 06:02] LABS: Lactic Sepsis W/Reflex 2.8 mmol/L (0.5-2.2)
[2020-07-09 06:03] LABS: D Dimer 2.34 ug/mIFEU (0-0.59)
[2020-07-09 06:32] LABS: NT Pro B Type Natriuretic Pept 1572 pg/mL (0-125); Procalcitonin 0.48 ng/mL (0-0.5)
[2020-07-09 06:42] LABS: Glucose Point of Care 102 mg/dL (70-110)
[2020-07-09 06:43] LABS: Creatine Phosphokinase 27 U/L (26-192)
--- NOTE | 2020-07-09 07:00 | XR_ITS ---
WS: [id number] Exam: XR chest 1V portable [id number] Date/Time of Exam: 07/09/2020 7:00 AM Reason For Exam: sob Comparison 07/08/2020. Bibasal infiltrates are unchanged. ET tube is in place ending about 3 cm above the thomas. Right IJ c atheter remains in good position ending in the lower one third of the SVC. An enteric tube enters the stomach but the tip is not visible. XR/XR chest 1V portable [id number] IMPRESSION: 1. Bibasal infiltrates unchanged. 2. ET tube has advanced slightly since previous study. The tip of the tube is a bout 3 cm above the thomas. No other change.
--- NOTE | 2020-07-09 07:00 | PC.NURSE ---
Received report from Sabrina. Pt intubated. she has a central line in right IJ a peripheral line in let FA. she has Fentanyl infusing [id number] and heparin gtt infusing at 21ml/hr. She has a OG with Jevity1.2 infusing at 55ml/hr , the goal rate. Pump is also set with 200ml H2O flushes every6 hrs. Kowalski and rectal tue present. At bedside noted heparin gtt to be infusing at 21.9ml/hr.
[2020-07-09 07:05] LABS: Reflex Lactate Order REFLEX LACTIC ORDERD
[2020-07-09 07:32] LABS: Partial Thromboplastin Time 40.1 SECONDS (23.9-36.7)
[2020-07-09 07:41] LABS: Slide Review Slide Review Perform
[2020-07-09] MEDS: dexamethasone 4 mg/mL INJ 6 MG IVP (07:53)
--- NOTE | 2020-07-09 07:59 | USCV_ITS ---
Naida Yap Age: 75 Gender: F : 1945 Exam Date: 07/09/2020 15:03 Ordering Phys: Omero Sanford MD Technologist: Sheri Merrill Exam Location: [facility] Indication: ENDOCARDITIS BP: 96 / 54 HR: 83 Rhythm: Sinus Technical Quality: Very technically difficult study MEASUREMENTS (Male / Female) Normal Values 2D ECHO LV Chamber Size 1.9 cm RV Chamber Size 3.1 cm LVOT Diameter 2.0 cm LA Width 3.2 cm LA Height 5.1 cm RA Width 2.2 cm RA Height 2.4 cm DOPPLER AV Peak Velocity 139.0 cm/s LVOT Peak Velocity 81.0 cm/s AV Area Cont Eq vti 2.2 cm squared AV Area Cont Eq pk 1.9 cm squared MV Area PHT 2.9 cm squared Mitral E to A Ratio 0.8 MV E' Velocity 44.5 cm/s Mitral E to MV E' Ratio 13.2 Mitral E to LV E' Lateral Ratio 12.3 Mitral E to LV E' Septal Ratio 14.7 TR Peak Velocity 299.5 cm/s TR Peak Gradient 35.9 mmHg TR Mean Velocity 227.8 cm/s TR Mean Gradient 23.5 mmHg TR Velocity Time Integral 93.3 cm Right Atrial Pressure 15.0 mmHg Pulmonary Artery Systolic Pressu 50.9 mmHg PV Peak Velocity 80.0 cm/s RV Acceleration Time 0.1 s RV Ejection Time 0.3 s RV AcT/ET 0.4 FINDINGS Left Ventricle Limited ultrasonic windows. Subcostal views obtained. Grossly LV systolic function is normal. Grade 1 diastolic dysfunction is noted. Right Ventricle Grossly normal Right Atrium The right atrium is normal in size. There is a fluttering structure in the right atrium which does not appear to be attached to the tricuspid valve, this is likely eustachian valve. Left Atrium The left atrium is grossly normal in size. Mitral Valve Mitral annular calcification. However because of limited quality echocardiogram, cannot rule out abnormalities on valve. Aortic Valve Grossly normal. Tricuspid Valve Grossly normal. Insufficient TR jet to calculate RVSP. Pulmonic Valve Not visualized Pericardium Grossly normal Aorta Not visualized CONCLUSIONS This is technically very difficult study. Limited ultrasonic windows. Grossly LV systolic function is normal. Grade 1 diastolic dysfunction is noted. There is a fluttering structure in the right atrium which does not appear to be attached to tricuspid valve, this likely represents eustachian valve. Comparison with prior study from 07/04/2020 is difficult because of poor quality and technical difficulty of both studies. Eric Kaiser MD (Electronically Signed) Final Date: 09 July 2020 17:13 S
[2020-07-09 08:11] LABS: Lactic Acid level (Lactate) 2.1 mmol/L (0.5-2.2)
[2020-07-09 09:16] LABS: Alanine Aminotransferase 17 U/L (0-33); Albumin Level 2.4 g/dL (3.5-5.2); Alkaline Phosphatase 79 IU/L (35-105); Aspartate Amino Transferase 27 U/L (0-32); Blood Urea Nitrogen 32 mg/dL (8-23); C Reactive Protein 8.5 mg/L (0.0-4.9); Calcium 8.1 mg/dL (8.5-10.5); Carbon Dioxide 30 mmol/L (22-29); Creatinine Clr Calc Pharmacy 56.6672; Globulin 2.3 g/dL (1.3-4.6); Glucose 107 mg/dL (65-115); Magnesium 1.9 mg/dL (1.7-2.3); Phosphorus 4.3 mg/dL (2.5-4.5); Total Bilirubin 0.2 mg/dL (0.15-1.2); Total Protein 4.7 g/dL (6.6-8.7)
[2020-07-09] MEDS: cholecalciferol (vitamin D3) 5,000 unit Tablet 5000 UNIT PO (09:18)
[2020-07-09] MEDS: ascorbic acid 500 mg Tablet PO (09:18)
[2020-07-09] MEDS: aspirin 81 mg Chew Tablet PO (09:18)
[2020-07-09] MEDS: folic acid 1 mg Tablet PO (09:19)
[2020-07-09] MEDS: zinc gluconate 50 mg Tablet 100 MG PO (09:19)
[2020-07-09] MEDS: phosphorus 250 mg Tablet PO ×2 (09:20→17:14)
[2020-07-09] MEDS: valproic acid 250 mg/5 mL UDC PO ×2 (09:21→17:14)
[2020-07-09] MEDS: cyanocobalamin 1,000 mcg Tablet 1000 MCG PO (09:23)
[2020-07-09 09:40] LABS: Chloride 102 mmol/L (98-107); Osmolality Calculated 307 mOsm/kg (285-295); Sodium 145 mmol/L (136-145)
--- NOTE | 2020-07-09 10:50 | PC.NURSE ---
Per Dr Sanford's and Dr Eisenberg's request [facility] contacted to ascertain pt's normal mentation orientation. Pt is oriented to self only. At times she does recognize family. She does not recognize staff. She will wake up and have a conversation, but it probably will not make sense. Pt has been W/C bound for about a year but she still tries to transfer self.
[2020-07-09 11:31] LABS: Glucose Point of Care 129 mg/dL (70-110)
--- NOTE | 2020-07-09 12:04 | P.PN_ITS ---
Subjective Subjective: Interval history: This morning patient was examined, she is on minimal sedation, she does open her eyes when I say her name, she does follow me, she did squeeze my finger bilaterally, but her mentation does wax and wane, T-max of 100 last night, has been normotensive, not on any pressors, in normal sinus rhythm, CT of the head was negative for acute stroke or intracranial bleed, she has had good urine output in the last 24 hours, 4.9 L, Nurses spoke to the correction, at baseline patient is wheelchair-bound, is oriented to self, sometimes oriented to family members, Vitals/I&O/Wt Last Vital Signs Temp 98.2 F 07/09/20 02:00 Pulse 95 07/09/20 07:58 Resp 21 H 07/09/20 11:35 BP 145/81 07/09/20 06:16 Pulse Ox 96 07/09/20 07:58 07/08/20 07/09/20 07/09/20 22:59 06:59 14:59 Intake Total 1368.342 / 3668.642 1460 / 5128.642 250.499 / 250.499 Output Total 2052 / 3577 1325 / 4902 Balance -683.658 / 91.642 135 / 226.642 250.499 / 250.499 Physical Exam Const: COMMON NORMALS: no acute distress GENERAL APPEARANCE: ill appearing NUTRITIONAL APPEARANCE: thin ORIENTATION/CONSCIOUSNESS: Yes awake; not oriented to person, not oriented to place and not oriented to time OTHER: Intubated, on minimal sedation HENMT: COMMON NORMALS: normocephalic HEAD & SCALP: normocephalic Eye: COMMON NORMALS: Equal, round and reactive pupils present PUPIL: Yes Equal, round and reactive pupils present Neck/C-Spine: COMMON NORMALS: no JVD OTHER: Right central line in place Lymph: LYMPHATIC: no lymphadenopathy noted Chest: COMMONS NORMALS: normal inspection of the chest Resp: COMMON NORMALS: normal respiratory effort, No retractions and No use of accessory muscles AUSCULTATION: crackles Cardio: COMMON NORMALS: no JVD, regular rate, regular rhythm, S1 normal heart sound present and S2 normal heart sound present RATE: regular rate RHYTHM: regular rhythm HEART SOUNDS: S1 normal heart sound present and S2 normal heart sound present GI: COMMON NORMALS: Normal to inspection, nondistended, normoactive bowel sounds present, Soft to palpation, non-tender, No hepatosplenomegaly present, no masses and no bruits PALPATION: Yes Soft to palpation and Yes No hepatosple nomegaly present Extremity: COMMON NORMALS: capillary refill normal, no clubbing, cyanosis or edema, no calf tenderness and no pedal edema NARRATIVE EXTREMITY EXAM: Diffuse anasarca Neuro: SENSORIUM/ORIENTATION: No oriented to person, No oriented to place and No oriented to time Psych: COMMON NORMALS: mental status grossly normal Skin: NARRATIVE SKIN EXAM: Left arm: Levophed infiltration site, looks clean, dry, good blanching of the skin, no necrosis, no blocking Right neck central line placement, clean and dr Left neck, subclavian injury site, clean and dry, no signs of bleeding Urinary Catheter Management^: Kowalski: Cath Placed During This Visit: yes Reason for Continuing Indwelling Catheter: Accurate Measurement of Urinary Output in Critically Ill Patients Urinary Catheter Date of Insertion: 07/03/20 Urinary Catheter Time of Insertion: 13:27 Data : 07/09/20 04:15 07/09/20 04:15 Micro: Microbiology 07/09/20 10:30 Blood Culture - Preliminary Blood SPECIMEN COLLECTED A&P Assessment and plan (1) Pneumonia due to 2019 novel coronavirus: -Started on remdesivir today Status: Acute (2) Atrial fibrillation with RVR: -Currently normal sinus rhythm -Cardizem drip as needed -Heparin drip Status: Acute (3) Type 2 diabetes mellitus: A1c, moderate dose sliding scale Status: Acute Qualifiers: Diabetes mellitus penitentiary insulin use: 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 Diabetes mellitus complication status: with other specified complication Qualified Code(s): E11.69 - Type 2 diabetes mellitus with other specified complication (4) NSTEMI (non-ST elevated myocardial infarction): -Likely supply demand ischemia from acute respiratory failure, septic shock, lactic acidosis -Continue aspirin 81 mg, atorvastatin 40 mg -Echocardiogram shows EF of 55%, segmental wall motion analysis difficult to analyze because of arrhythmia, however no gross wall motion abnormalities were noted -Continue telemetry monitoring Status: Acute (5) Septic shock: Resolved Status: Acute (6) Acute respiratory failure with hypoxia: -Secondary to COVID-19 pneumonia, secondary bacterial infection, UTI, pulmonary edema -Evidence of multiorgan failure, resolving -Evidence of DIC resolving -A. fib with RVR, resolved -Evidence of septic shock, resolved -CT of the chest shows bilateral lower lobe atelectasis and pneumonia, minimal peripheral pulmonary infiltrates -Respiratory cultures growing strep pneumoniae, urine cultures growing Pseudomonas -COVID-19 PCR, and rapid was positive -T-max 100 overnight, leukocytosis, 23.0, neutrophilic, lactic acid 2.8, CRP 8.5, pro-Tony 0.48 PLAN: -Admit to viral ICU -Patient is a full code -Patient's DPOA is Sukh Andrade counts [phone], I have already updated on patient's status -Mentation at baseline the patient is alert to self, to family members, wheelchair-bound -Currently she does open her eyes, she does follow me, she did squeeze my fingers, but mentation does wax and wane, CT of the head was negative for intracranial hemorrhage or bleed -Right central line in place, x-ray no pneumothorax, tip over SVC, will remove -Resume heparin drip hypercoagulability associate with COVID-19 -Anemia likely secondary to bone marrow suppression, acute renal failure, sepsis hemoglobin down to 10.5, no overt signs of bleeding, continue Protonix, status post 2 units PRBC, heparin drip will be carefully resume today -On the ventilator, minimize PEEP, minimize FiO2, daily sedation vacations, weaning trial, -pH this morning pH 7.5, PO2 66, bicarb 34.6, and 45% -Primary metabolic alkalosis, with secondary respiratory alkalosis -Fentanyl and propofol for sedation -Decadron -Remdesivir started today, load was started on admission -Broad-spectrum antibiotics Primaxin, azithromycin, vancomycin -tube feeds, Jevity, low-dose sliding scale, Levemir 10 units twice daily, maintain blood sugars between 180-225 -Fluids have been stopped for hypovolemic hyponatremia, urine output 4.9 cc, creatinine 0.8, has generalized edema, will give 40 mg of Lasix today, consider giving 40 mg in the evening -Normal sinus rhythm, Cardizem drip on hold - Levophed, maintain MAP greater than 65, currently stopped -Follow urine cultures Pseudomonas, blood cultures negative so far, respiratory cultures strep pneumoniae, urine bacterial antigens -Follow serial inflammatory markers -Daily EKGs to monitor QTC -Consult pulmonary service -Given persistent fevers, elevated leukocytosis, elevated lactic acid, will remove central line, culture tip, remove Kowalski catheter, culture tip, place PICC line in the meantime as she is possibly heading down sepsis, repeat blood cultures, urine cultures, sputum cultures, remdesivir started today PLAN: Continue to monitor mentation off sedation, spontaneous breathing trial, given 1 dose of Lasix, remove central line replaced with PICC line, remove Kowalski catheter placed new full catheter, repeat cultures, blood cultures, urine cultures, catheter cultures, start remdesivir today Status: Acute (7) Acute renal insufficiency: -Acute kidney injury, secondary to sepsis, secondary to dehydration, creatinine 0.8 -Continue to monitor Status: Acute (8) DIC (disseminated intravascular coagulation): Resolving Status: Acute (9) Hypernatremia: Resolved Status: Acute (10) Secondary bacterial pneumonia: Status: Acute (11) Lactic acidosis: Lactic acid this morning 3.0 Status: Acute (12) UTI (urinary tract infection): Primaxin as above, CT abdomen pelvis shows left nephrolithiasis, small stone in proximal left ureter, no evidence hydronephrosis, urine growing Pseudomonas Status: Acute (13) Dehydration with hypernatremia: -Hypovolemic hypernatremia - Status: Acute (14) Transaminitis: Status: Acute (15) Injury of left subclavian artery: -ct chest showed: The catheter entering along the left side of the neck is intra arterial in position with its tip in the ascending thoracic aorta. -us LUE showed;Patent left subclavian, axillary, brachial, distal radial and ulnar arteries. The proximal and mid brachial, radial and ulnar arteries were not visualized Possibly no significant arterial obstruction, based on the above findings. Technically somewhat limited study -Site looks clean and dry, no active bleeding pressure dressing applied -It has been more than 48 hours since her arterial injury -No active bleeding around site -unFortunately Dr. Dias is not on for cardiothoracic surgery Status: Acute (16) IV infiltration: Left arm, area looks clean and dry, no skin mottling, good blanching, ultrasound over the area shows left cephalic vein thrombophlebitis Status: Acute Attestations Medical Necessity Statement*: Patient requires hospitalization for acute respiratory failure secondary to COVID-19 pneumonia, strep pneumoniae, Pseudomonas UTI Coding Level of Care Code Acute Vp Compliance for [facility] Fwd Diagnoses Pneumonia due to 2019 novel coronavirus U07.1; J12.89 Atrial fibrillation with RVR I48.91 Type 2 diabetes mellitus E11.69 Diabetes mellitus penitentiary insulin use: unspecified penitentiary insulin use status Diabetes mellitus complication status: with other specified complication NSTEMI (non-ST elevated myocardial infarction) I21.4 Septic shock A41.9; R65.21 Acute respiratory failure with hypoxia J96.01 Acute renal insufficiency N28.9 DIC (disseminated intravascular coagulation) D65 Hypernatremia E87.0 Secondary bacterial pneumonia J15.9 Lactic acidosis E87.2 UTI (urinary tract infection) N39.0 Dehydration with hypernatremia E87.0 Transaminitis R74.01 Injury of left subclavian artery S25.102A IV infiltration T80.1XXA
[2020-07-09] MEDS: FUROsemide 10 mg/mL SDV 4mL 40 MG IVP (13:01)
--- NOTE | 2020-07-09 13:02 | XR_ITS ---
WS: [id number] Exam: XR chest 1V portable [id number] Date/Time of Exam: 07/09/2020 1:02 PM Reason For Exam: PICC inseertion/placement Comparison 07/09/2020 at 0520 hours. Right-sided PICC has been placed and appears to extend into the right atrium. ET tube is noted that e nds about 2 cm above the thomas. The tube should be retracted about 3 cm for optimal position. Previo usly noted right IJ catheter has been removed. Infiltrates in the bilateral lower lung zones are unch anged. NG tube looped in the stomach but the tip is not visible. Heart size is within normal limits. No pneumothorax or pleural effusion. XR/XR chest 1V portable [id number] IMPRESSION: 1. Right-sided PICC line appearing to end in the right atrium. 2. ET tube is positioned about 2 cm above the thomas. The tube should be retrac abad at least 3 cm for optimal position. 3. Bibasal pulmonary infiltrates unchanged.
--- NOTE | 2020-07-09 13:21 | PM.PN ---
Subjective Subjective: Interval history: Sedation patient is opening eyes and squeezing hands and but overall mentation seems to be waxing and waning. director consumer reported that patient is wheelchair-bound for last 1 year and at times self oriented and to some family members but overall poor mentation. Worsening leukocytosis, recultured and broaden coverage with vancomycin. Yesterday CT scan did not reveal any acute changes but she has Moderate atrophy and chronic ischemic disease. We will attempt extubating this weekend but given her poor baseline mental status since highly likely Medications: Reviewed: Yes Medication Review Details: Current Medications Albuterol/Ipratropium (Ipratropium-Albuterol 3 Ml Neb) 3 ml INHALATION Q4H.RESPIRATORY PRN PRN Reason: SHORTNESS OF BREATH Last Admin: 07/05/20 00:45 Dose: 3 ml Documented by: Ascorbic Acid (Ascorbic Acid 500 Mg Tablet) 500 mg PO DAILY [facility] Last Admin: 07/04/20 09:06 Dose: 500 mg Documented by: Aspirin (Aspirin 81 Mg Chew Tablet) 81 mg PO DAILY [facility] Last Admin: 07/04/20 09:07 Dose: 81 mg Documented by: Atorvastatin Calcium (Atorvastatin 40 Mg Tablet) 20 mg PO DAILY [facility] Last Admin: 07/04/20 09:06 Dose: 20 mg Documented by: Cyanocobalamin (Cyanocobalamin 1,000 Mcg Tablet) 1,000 mcg PO DAILY [facility] Last Admin: 07/04/20 09:07 Dose: 1,000 mcg Documented by: Dexamethasone (Dexamethasone 4 Mg/Ml Inj) 6 mg IVP Q24H [facility] Last Admin: 07/04/20 08:37 Dose: 6 mg Documented by: Dextrose (Dextrose 50% Syringe 50 Ml) 25 ml IVP ONCE PRN; Protocol PRN Reason: hypoglycemia protocol Dextrose (Dextrose 50% Syringe 50 Ml) 50 ml IVP PRN PRN; Protocol PRN Reason: hypoglycemia protocol Enoxaparin Sodium (Enoxaparin 60 Mg/0.6 Ml Syringe) 60 mg SUBCUT Q24H [facility] Folic Acid (Folic Acid 1 Mg Tablet) 1 mg PO DAILY [facility] Last Admin: 07/04/20 09:07 Dose: 1 mg Documented by: Glucagon (Glucagon 1 Mg/Ml Inj 1 Ml) 1 mg IM ONCE PRN; Protocol PRN Reason: Adult Acute Hypoglycemia Prot. Fentanyl 1,000 mcg/ Sodium (Chloride) 100 mls @ 0 mls/hr IV .Q0M TAJ; Protocol Last Admin: 07/04/20 21:47 Dose: 100 mcg/hr, 10 mls/hr Documented by: remdesivir (EUA) 100 mg/ (Sodium Chloride) 100 mls @ 100 mls/hr IV Q24H [facility]J Propofol (Diprivan) 1,000 mg in 100 mls @ 0 mls/hr IV .Q0M TAJ; Protocol Last Titration: 07/05/20 00:30 Dose: 10 mcg/kg/min, 3.7 mls/hr Documented by: Vancomycin HCl 1,000 mg/ (Sodium Chloride) 250 mls @ 250 mls/hr IV Q24H [facility]J; Protocol Last Admin: 07/05/20 00:07 Dose: 250 mls/hr Documented by: Azithromycin 500 mg/ Sodium (Chloride) 250 mls @ 250 mls/hr IV Q24H [facility]; Protocol Last Admin: 07/04/20 17:34 Dose: 250 mls/hr Documented by: Norepinephrine Bitartrate 4 mg (/ Dextrose) 254 mls @ 0 mls/hr IV .Q0M [facility]; Protocol Last Titration: 07/05/20 00:30 Dose: 0 mcg/min, 0 mls/hr Documented by: Dextrose (D5w) 500 mls @ 100 mls/hr IV ONCE PRN; Protocol PRN Reason: Adult Acute Hypoglycemia Prot Sodium Chloride (Sodium Chloride 0.45%) 1,000 mls @ 100 mls/hr IV .Q10H [facility] Last Admin: 07/05/20 00:07 Dose: 100 mls/hr Documented by: Imipenem/Cilastatin Sodium 250 (mg/ Sodium Chloride) 100 mls @ 200 mls/hr IV Q6H [facility] Last Admin: 07/05/20 03:37 Dose: 200 mls/hr Documented by: Diltiazem HCl 125 mg/ Sodium (Chloride) 125 mls @ 0 mls/hr IV .Q0M TAJ; Protocol Last Titration: 07/05/20 04:12 Dose: Infused Documented by: Insulin Aspart (Insulin Aspart 100 Unit/1 Ml) 0 unit SUBCUT TIDWM [facility]; Protocol Last Admin: 07/04/20 17:34 Dose: 6 unit Documented by: Naloxone HCl (Naloxone 0.4 Mg/Ml Sdv) 0.1 mg IVP Q2M PRN PRN Reason: OPIATERV Nitroglycerin (Nitroglycerin 1 Gm/Inch Oint Pkt) 1 inch TOPICAL Q12H [facility] Stop: 07/05/20 13:14 Last Admin: 07/05/20 01:49 Dose: 1 inch Documented by: Ondansetron HCl (Ondansetron 2 Mg/Ml Sdv 2 Ml) 4 mg IVP Q8H PRN PRN Reason: vomiting, or N/V if npo Pantoprazole Sodium (Pantoprazole 40 Mg Sdv) 40 mg IVP Q24H [facility] Last Admin: 07/04/20 17:34 Dose: 40 mg Documented by: Sodium Bicarbonate (Sodium Bicarbonate 8.4% 1 Meq/Ml 50ml Syr) 50 meq IVP ONCE ONE Stop: 07/05/20 08:01 Valproic Acid (Valproic Acid 250 Mg/5 Ml Udc) 250 mg PO BID [facility] Last Admin: 07/04/20 17:34 Dose: 250 mg Documented by: Vitamin D (Cholecalciferol (Vitamin D3) 5,000 Unit Tablet) 5,000 unit PO DAILY [facility] Last Admin: 07/04/20 09:07 Dose: 5,000 unit Documented by: Zinc Gluconate (Zinc Gluconate 50 Mg Tablet) 100 mg PO DAILY [facility] Last Admin: 07/04/20 09:06 Dose: 100 mg Documented by: Vitals/I&O/Wt Last Vital Signs Temp 98.2 F 07/09/20 02:00 Pulse 95 07/09/20 07:58 Resp 21 H 07/09/20 11:35 BP 145/81 07/09/20 06:16 Pulse Ox 96 07/09/20 07:58 07/08/20 07/09/20 07/09/20 22:59 06:59 14:59 Intake Total 1368.342 / 3668.642 1460 / 5128.642 252.582 / 252.582 Output Total 2 / 9437 1325 / 4902 Balance -683.658 / 91.642 135 / 226.642 252.582 / 252.582 Physical Exam Narrative: EXAM NARRATIVE: PHYSICAL EXAM: General: lying in bed, sedated and intubated-opening eyes HEENT:NCAT, PERRLA, EOMI Neck: Supple Lungs: Clear, Heart: s1/s2, RRR Abd: soft, NT, ND, BS + Normoactive Extremities: No edema ACUTE CARE CLINICAL NURSE SPECIALIST: Opening eyes, sedated and limited ACUTE CARE CLINICAL NURSE SPECIALIST exam possible. SKIN: no rash LDA: # CVC: Right IJ line 07/04/2020 #Urine Lieberman 07/03/2020 Urinary Catheter Management^: Lieberman: Cath Placed During This Visit: yes Reason for Continuing Indwelling Catheter: Accurate Measurement of Urinary Output in Critically Ill Patients Urinary Catheter Date of Insertion: 07/03/20 Urinary Catheter Time of Insertion: 13:27 Data : 07/09/20 04:15 07/09/20 04:15 Micro: Microbiology 07/09/20 10:30 Blood Culture - Preliminary Blood SPECIMEN COLLECTED A&P Assessment and plan (1) Pneumonia due to 2019 novel coronavirus: Status: Acute (2) Atrial fibrillation with RVR: Status: Acute (3) Type 2 diabetes mellitus: Status: Acute Qualifiers: Diabetes mellitus fdc insulin use: unspecified fdc insulin use status Diabetes mellitus complication status: with other specified complication Qualified Code(s): E11.69 - Type 2 diabetes mellitus with other specified complication (4) NSTEMI (non-ST elevated myocardial infarction): Status: Acute (5) Septic shock: Status: Acute (6) Acute respiratory failure with hypoxia: Status: Acute (7) Acute renal insufficiency: Status: Acute (8) DIC (disseminated intravascular coagulation): Status: Acute (9) Hypernatremia: Status: Acute Assessment and plan: 75 year old female with PMH of TIA, frequent UTIs, COPD, HTN, type 2 DM, GERD, chronic back pain, depression and anxiety, possible CVA requiring transfer to [place] on June 14, 2019 admitted to viral ICU for acute hypoxic respiratory failure secondary to pneumonia, acute hypernatremia secondary to sepsis related dehydration and acute renal failure. COVID-19 rapid antigen positive NEURO: #Altered mental status on presentation could be due to hypernatremia due to dehydration/sepsis and possible underlying dementia -Hypernatremia resolved -Patient opening eyes spontaneously -Recommended to DC propofol and taper down fentanyl and continue am awakening trial -director consumer reported that patient is wheelchair-bound for last 1 year and at times self oriented and to some family members but overall poor mentation. -CT head did not show any acute intracranial hemorrhage or acute infarct or edema but showed moderate symmetric atrophy and chronic microvascular ischemic disease #sedation -[id number], fentanyl 25 PULM: #Acute hypoxic respiratory failure likely due to strep pneumonia -Recently tested positive for Covid 3 weeks back in jail -Rapid Covid antigen positive -Intubated on arrival to ER for sats initially 80s on 15 L -CMV 450/14/PEEP 10 / 50% -ABG today morning 7.5 0/44/66/34 on 450/14/10/45 percent FiO2 volume control mode -CXR Bilateral pulmonary infiltrates unchanged -BNP 870 -Endotracheal tube aspirate strep pneumonia sensitive to penicillin but patient is penicillin allergic-currently on imipenem -Taper down sedation and if mentation improves then try breathing trial and plan to extubate accordingly -Extubation is challenging because of poor baseline mentation would like to set goals of care about reintubation before attempting extubation this weekend CVS: #Shock - most likely sepsis-resolved #Troponinemia-could be secondary to demand ischemia due to sepsis/TODD - -Off Levophed -hemodynamically stable -Normal urine output but worsening BNP and lactic acidosis is concerning for TACO -aspirin, Lipitor -Echo EF 55% with moderate TR and increased PAP 36 -If continues to be in positive balance and recommended to give Lasix 40 mg 1 dose #A. fib with RVR likely due to sepsis - currenlty NSR -Off Cardizem-rate controlled GI: -#Diarrhea, C. difficile negative -Tube feeding Jevity at 55 mL/h -DC senna -Stool noted in rectal tube RENAL: #TODD-likely due to hypoperfusion secondary to dehydration/sepsis -resolved #Hypovolemic hypERnatremia likely secondary to sepsis related dehydration -resolved -Clinically volume overloaded - off pressor -Metabolic alkalosis on ABG and CMP - Improving renal functions and urine output and normal electrolytes; BUN correction is lagging -+ 1000 cc -If patient continues to be positive - will recommend to give Lasix 40 dose today evening -Strict I/O -Continue lieberman cath -Avoid nephrotoxins -Replace lytes prn #Renal stones -CT abdomen pelvis shows left nephrolithiasis, small stone in proximal left ureter, no evidence hydronephrosis, HEM: H&H -stable s/p 2 PRBC-monitor CBC and transfuse if H&H less than 03/09 or active bleeding noted with hemodynamic compromise Plts stable,will trend earlier Coagulation profile suggestive of DIC-labs normalized DVT prophylaxis: As there is no active bleeding noted-can start heparin drip Recent injury to left carotid artery while placing central line-currently no bleeding noted ENDO: Hyperglycemia -sugars well controlled on high-dose SSI and check POCT Q6H -If consecutive readings of greater than 400 switch to IV insulin ID: -Septic shock secondary to strep pneumonia and Pseudomonas UTI -Shock resolved -afebrile, worsening leukocytosis -added vancomycin and sent for repeat blood cultures and urine cultures -Plan to DC central line and place a PICC line and change Lieberman -Improving lactic acidosis -Initial procalcitonin high -Endotracheal aspirate positive for strep pneumonia -Recent COVID-19 test +3 weeks ago in jail-repeat COVID-19 testing positive -Elevated inflammatory markers-unlikely due to bacterial pneumonia and UTI-less likely due to Covid -Coagulation profile suggestive of DIC with fibrin degradation products positive but now normalized -Treat underlying pneumonia with imipenem, azithromycin, dexamethasone --Given persistent fevers, elevated leukocytosis, elevated lactic acid, will remove central line, culture tip, remove Lieberman catheter, culture tip, place PICC line in the meantime as she is possibly heading down sepsis, repeat blood cultures, urine cultures, sputum cultures, remdesivir started today Recommendations conveyed to hospitalist covering the patient Overall pt with acute hypoxic respiratory failure and septic shock all secondary to strep pneumonia and possible Pseudomonas UTI along with underlying COVID 19. Hypernatremia related to dehyration/hypoperfusion due to sepsis leading to prerenal renal failure improving. Major concern that he is preventing extubation is her mentation. If extubated with this equivocal mentation there are high chances of aspiration and reintubation in this elderly woman with chronic microvascular changes and atrophy of her brain. Family should be involved in decision making and goals of care should be established in case if patient needs reintubation. Attestations Medical Necessity Statement*: Patient requires hospitalization for acute respiratory failure secondary to COVID-19 pneumonia, strep pneumoniae, Pseudomonas UTI Time Spent in Patient Care: (>than 50% of time spent in counselling and/or direct pt care on unit). 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 Patient Type Established History Comprehensive Exam Comprehensive Medical Decision Making High Complexity Diagnoses Pneumonia due to 2019 novel coronavirus U07.1; J12.89 Atrial fibrillation with RVR I48.91 Type 2 diabetes mellitus E11.69 Diabetes mellitus buttermaker helper insulin use: unspecified buttermaker helper insulin use status Diabetes mellitus complication status: with other specified complication NSTEMI (non-ST elevated myocardial infarction) I21.4 Septic shock A41.9; R65.21 Acute respiratory failure with hypoxia J96.01 Acute renal insufficiency N28.9 DIC (disseminated intravascular coagulation) D65 Hypernatremia E87.0 Time Spent (min) 45
--- NOTE | 2020-07-09 13:27 | US_ITS ---
WS: [id number] RENAL ULTRASOUND HISTORY: left renal stone, developing sepsis, COMPARISON: 07/04/2020 TECHNIQUE: 2-D and color Doppler imaging of the kidney submitted. Right kidney: 10.7 cm x 5.1 cm x 4.6 cm. Normal echogenicity with no hydronephrosis or mass. Left kidney: 9.3 cm x 4.6 cm x 4.9 cm. Normal size kidney. Irregularity mild thinning of the cortex. No obstruction. Calcification in the up per pole of the kidney is reidentified measuring 7 mm. There are numerous calcifications in the LEFT kidney as seen by recent CT. Not all of these calcifications are identified by ultrasound. Aorta: Ectatic aorta. Urinary Bladder: Kowalski catheter present in a nondistended urinary bladder. US/US renal BI* [id number] IMPRESSION: 1. No renal obstruction or mass. 2. 7 mm unchanged calcification upper pole LEFT kidney. 3. Nondistended urinary bladder with Kowalski catheter.
--- NOTE | 2020-07-09 13:43 | XR_ITS ---
WS: [id number] Exam: XR chest 1V portable [id number] Date/Time of Exam: 07/09/2020 1:43 PM Reason For Exam: PICC placement Comparison with previous exam performed on the same day at 0131 hours. Right-sided PICC line has been repositioned and now appears to end near the cavoatrial junction in go od position. ET tube and enteric tube unchanged in position. Bibasal infiltrates are again noted. XR/XR chest 1V portable [id number] IMPRESSION: 1. Right-sided PICC line is been repositioned and now ends at the expected nj on of the cavoatrial junction. No other changes since the latest exam.
--- NOTE | 2020-07-09 14:00 | PC.NURSE ---
Central line removed. Stitches removed prior\. Cath tip intact, sent to lab as ordered. Pressure held on site until hemostasis obtained. [place] PICC nurse, at bedside to attempt PICC.
[2020-07-09 15:02] LABS: Partial Thromboplastin Time 31.7 SECONDS (23.9-36.7)
[2020-07-09] MEDS: azithromycin 500 MG in sodium chloride 0.9% 250 ML 250 MG IV (17:14)
[2020-07-09] MEDS: pantoprazole 40 mg SDV IVP (17:14)
--- NOTE | 2020-07-09 17:45 | PC.NURSE ---
Heparin gtt: Please see paper heparin gtt flow sheet for actual rates and times infusing. MAR shows infusing stopped at 0745, this is incorrect. Heparin infusing up until 0930, when stopped for possible LP. Dr Datar determined LP not indicated, at 1050 restarted at same rate 24ml/hr Then it was interrupted again at 1330 for PICC placement,restarted at 1415. Final rate this sift was 28ml/hr which was adjusted at 1430 for lowere PTT value.
[2020-07-09] MEDS: heparin drip 25,000 UNIT/500 ML PREMIX 28 UNIT IV (18:00)
--- NOTE | 2020-07-09 18:00 | PC.NURSE ---
PICC very oozing around insertion site. Changed dressing and statlock again. Surgi-seal applied around insertin site. Pressure dressing applied over fresh dressing.
[2020-07-09 18:30] LABS: Glucose Point of Care 184 mg/dL (70-110)
--- NOTE | 2020-07-09 19:47 | PC.NURSE ---
Shift summary: Pt remains intubated and sedated. Sedation vacation did not yield much response from pt this am. She would open eyes. she does have a gaze preference. She also prefers o have her head turned to the right. Attempts to decrease FIO2 ween made, but unsuccessful today. Central line removed and tip sent for culture. PICC line placed. Picc has been oozy, dressing changed twice since insertion. Surgi-seal applied around insertion site at last dressing change. Lieberman cath changed out this am. Tip of lieberman sent for culture along with urine this am. Pt's arm's are very edematous with very fragile skin, weeping noted. Pt has a pressure inury on left upper lip from tube tamer. Lieberman cath is patent and draining, 2100ml output/. Rectal tube remains in place, minimal drainage noted this shift. Pt turned frequently for comfort and prevent breakdown.
[2020-07-09 20:46] LABS: Glucose Point of Care 120 mg/dL (70-110)
[2020-07-09] MEDS: atorvastatin 40 mg Tablet 20 MG PO (20:54)
[2020-07-09 22:01] LABS: Partial Thromboplastin Time 168.8 SECONDS (23.9-36.7)
[2020-07-09 23:40] LABS: Glucose Point of Care 99 mg/dL (70-110)
[2020-07-10] VITALS (29 sets, daily range): BP systolic 75–150; BP diastolic 38–83; PULSE 0–141; RESP 16–47; TEMP 36.6–37.4; O2SAT 0–100
[2020-07-10] MEDS: LORazepam 2 mg/mL INJ 1 mL 1 MG IVP (01:08)
--- NOTE | 2020-07-10 03:13 | PC.NURSE ---
Notified Dr. Valadez that Cardizem given IVP, HR remains 110-120's, B/P 78/56, O2 sats have been trending down. O2 sat was 100% on 45% when coming on shift tonight and now O2 sat is 89-90% on 50% FIO2. RT in room with patient and an ABG drawn. No new orders given.
--- NOTE | 2020-07-10 04:54 | PC.NURSE ---
Notified Dr. Valadez of systolic blood pressure 50-60's, HR 120-130's, Respiratory rate 50's with labored breathing on the vent. Order given to infuse 500ml NS bolus, 2mg Ativan IVP, Start Amio drip, Levophed prn.
[2020-07-10 05:00] LABS: Alanine Aminotransferase 14 U/L (0-33); Alkaline Phosphatase 68 IU/L (35-105); Anion Gap 9.1 (5-19); Aspartate Amino Transferase 21 U/L (0-32); Blood Urea Nitrogen 30 mg/dL (8-23); C Reactive Protein 7.3 mg/L (0.0-4.9); Calcium 7.7 mg/dL (8.5-10.5); Carbon Dioxide 34 mmol/L (22-29); Chloride 100 mmol/L (98-107); Creatinine Clr Calc Pharmacy 56.6672; Globulin 2.1 g/dL (1.3-4.6); Glucose 142 mg/dL (65-115); Magnesium 1.8 mg/dL (1.7-2.3); Osmolality Calculated 297 mOsm/kg (285-295); Phosphorus 4.1 mg/dL (2.5-4.5); Potassium 4.1 mmol/L (3.5-5.1); Sodium 139 mmol/L (136-145); Total Bilirubin 0.3 mg/dL (0.15-1.2); Total Protein 4.1 g/dL (6.6-8.7)
[2020-07-10] MEDS: LORazepam 2 mg/mL INJ 1 mL IVP (05:06)
[2020-07-10] MEDS: sodium chloride 0.9% 500 ML 999 ML IV (05:06)
[2020-07-10 05:12] LABS: Glucose Point of Care 367 mg/dL (70-110)
[2020-07-10 05:12] LABS: Glucose Point of Care 350 mg/dL (70-110)
[2020-07-10 05:24] LABS: NT Pro B Type Natriuretic Pept 1047 pg/mL (0-125); Procalcitonin 0.35 ng/mL (0-0.5)
[2020-07-10 05:36] LABS: Creatine Phosphokinase 59 U/L (26-192)
[2020-07-10 05:44] LABS: Basophils # 0.1 10^3/uL (0.0-0.1); Basophils % 0.2 %; Eosinophils # 0.1 10^3/uL (0.0-0.8); Eosinophils % 0.5 %; Hematocrit 24.5 % (37.0-47.0); Lymphocytes # 4.6 10^3/uL (0.8-4.8); Lymphocytes % 16.1 %; Mean Corpuscular HGB Conc 30.6 g/dL (30.0-36.0); Mean Corpuscular Hemoglobin 31.1 pg (28.0-34.0); Mean Corpuscular Volume 101.7 fL (81-99); Monocytes # 1.9 10^3/uL (0.2-0.9); Monocytes % 6.5 %; Neutrophils % 70.6 %; Nucleated Red Blood Cells # 0.1 /100WBC; Nucleated Red Blood Cells % 0.2 %; Platelet Count 164 10^3/cmm (130-400); Red Blood Count 2.41 10^6/uL (4.1-5.3); Red Cell Distribution Width 15.4 % (12.1-15.1); White Blood Count 28.6 10^3/uL (4.0-10.0)
[2020-07-10 05:46] LABS: Mean Platelet Volume 14.2 fL (7.4-10.4)
[2020-07-10 05:49] LABS: Hemoglobin 7.5 g/dL (11.5-15.3)
--- NOTE | 2020-07-10 05:57 | PC.NURSE ---
0538 - Notified Dr Valadez that patients blood pressure remains low with at map 30's to 40's, order given to increase levophed to 16mcg/min. Notified that patient is not responsive to painful stimuli with much diminished gag reflex. Dr. Valadez states that he will be down to see the patient and would like me to update the family. 0545 - Notified Sukh byrne, son of patients decline in status. Son states that he is not sure if he wants her to continue to be a full code and would like to talk to the DrNela when he comes down to see patient. Notified Dr. Valadez.
[2020-07-10 06:04] LABS: INR 1.22 (0.8-1.2)
[2020-07-10 06:06] LABS: D Dimer 2.96 ug/mIFEU (0-0.59)
--- NOTE | 2020-07-10 06:17 | PC.NURSE ---
Dr. Valadez to bedside, patient evaluated, placing call to patients son.
--- NOTE | 2020-07-10 06:27 | PC.NURSE ---
Dr. Valadez spoke with son and son wishes to change patients code status to AND. Dr. Valadez to bedside, reviewed labs, order given to stop heparin drip related to low H&H and to stop amiodarone.
--- NOTE | 2020-07-10 06:32 | ECG_ITS ---
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 Measurements Intervals [place] Rate: 119 P: 70 ND: 104 QRS: 22 QRSD: 79 T: 78 QT: 275 QTc: 387 Interpretive Statements SINUS TACHYCARDIA WITH SHORT ND INTERVAL LOW QRS VOLTAGE [QRS DEFLECTION < 0.5/1.0 mV IN LIMB/CHEST LEADS] Compared to ECG 07/06/2020 03:57:55 Short ND interval now present Sinus rhythm no longer present Electronically Signed On 07-21-2020 6:47:45 YACHT BUILDER by Blessing Bertrand M.D. [id number] f
[2020-07-10] MEDS: phenylephrine inj 25 MG in sodium chloride 0.9% 250 ML 24.2 MG IV (06:44)
--- NOTE | 2020-07-10 07:00 | XRR_ITS ---
PROCEDURE INFORMATION: Exam: XR Chest, 1 View Exam date and time: 07/10/2020 4:24 AM Age: 75 years old Clinical indication: Condition or disease; Lung condition and disease; Other: Covid; Additional info: SOB TECHNIQUE: Imaging protocol: XR of the chest Views: 1 view. COMPARISON: CR XR chest 1V portable [id number] 07/09/2020 1:46 PM FINDINGS: Tubes, catheters and devices: An endotracheal tube, nasogastric tube and PICC projects in satisfactory position. Lungs: There is left basilar infiltrate with elevation of left hemidiaphragm. Other bilateral pulmonary infiltrates have significantly improved since previous study. Pleural space: Unremarkable. No pleural effusion. No pneumothorax. Heart/Mediastinum: Unremarkable. No cardiomegaly. Bones/joints: Unremarkable. XR/XR chest 1V portable [id number] IMPRESSION: 1. Satisfactory position of the endotracheal tube, nasogastric tube and PICC. 2. Improving bilateral pulmonary infiltrates predominantly remaining in the left base.
--- NOTE | 2020-07-10 07:01 | PC.NURSE ---
Naida, from Organ transplant. review COVID testing was within 3 days pt is inelgible for transplant donation. Request to call back with time of .
--- NOTE | 2020-07-10 07:12 | PM.EVENT ---
Event Note Event Note: I was called regarding persistent tachycardia and tachypnea Blood gas was obtained which showed respiratory alkalosis Patient's blood pressure was running soft, initially telemetry semmed like atrial fibrillation hence amiodarone drip was initiated which was turned off after getting EKG which showed sinus tachycardia Patient's sedation was turned off due to hypotension, vasopressor Levophed failure-were started This morning hemoglobin dropped to 7 from 10, I noticed hematuria, chest x-ray is not showing new changes from yesterday, repeated H&H Family was updated who decided to pursue DNR/DNI status Currently her pupils are fixed, we are not able to get meaningful perfusion despite vasopressors, she also received 500 mL bolus, I have updated family twice, son Sukh Patrick wants to discuss with his brother regarding withdrawing life support, poor prognosis explained to the family, ICU nurse at the bedside
--- NOTE | 2020-07-10 07:26 | PC.NURSE ---
07 - Dr. Sanford at bedside, spoke with son Sukh Yap and notified that patient did not have a pulse or any respirations over the ventilator. Dr. Sanofrd assessed patient, no blood pressure, no audible heart tones, no spontaneous respirations noted. Time of 724.
--- NOTE | 2020-07-10 07:40 | PC.NURSE ---
PICC removed. Peripheral Iv removed. Kowalski removed. Rectal tube removed. ETT and OG removed.
--- NOTE | 2020-07-10 08:04 | PC.SOCIAL ---
*IMM* Called family and gave IM . Patient family stated that the doctor said if the patient does not do well today that she likely will not make it.
[2020-07-10 08:14] LABS: Hematocrit 19.3 % (37.0-47.0); Hemoglobin 5.3 g/dL (11.5-15.3)
--- NOTE | 2020-07-10 10:21 | PC.NURSE ---
0815 MTS notification completed. 0825: Son notified of time of . 0845[facility] [place] [place] [facility].
--- NOTE | 2020-07-10 11:05 | PC.NURSE ---
[facility] outbound telemarketing representative here to transport body.
--- NOTE | 2020-07-10 13:53 | PM.DDS ---
Discharge Providers DDS Date of Admission: 07/03/20 16:55 Date Summary Completed: 07/10/20 Attending Provider at Admission: Kaitlynn Valadez MD Time of : 07:25 Attending Provider at Discharge: Omero Sanford MD DS Diagnoses Hospital Diagnoses (1) Pneumonia due to 2019 novel coronavirus: (2) Atrial fibrillation with RVR: (3) Type 2 diabetes mellitus: Qualifiers: Diabetes mellitus long term care pharmacist insulin use: unspecified [facility] insulin use status Diabetes mellitus complication status: with other specified complication Qualified Code(s): E11.69 - Type 2 diabetes mellitus with other specified complication (4) NSTEMI (non-ST elevated myocardial infarction): (5) Septic shock: (6) Acute respiratory failure with hypoxia: (7) Acute renal insufficiency: (8) DIC (disseminated intravascular coagulation): (9) Hypernatremia: Reason for Visit Reason for Visit: RESP DISTRESS; COVID + Summary Date and Time of Date of : 07/10/20 Time of : 07:25 Summary Summary: This is a 75-year-old female with a past medical history of TIA, frequent UTIs, COPD, hypertension, type 2 diabetes mellitus, GERD, chronic back pain, depression and anxiety, possible CVA requiring transfer to [place] on June 14, 2019 who presents to [facility] due to complaints of confusion, hypoxia, shortness of breath, cough, fevers, fatigue, malaise. Patient was admitted to [facility] for acute hypoxic respiratory failure secondary to COVID-19 pneumonia, strep pneumonia secondary bacterial infection, Pseudomonas UTI, pulmonary edema, multiorgan failure, DIC, A. fib with RVR, septic shock, acute renal failure Patient was admitted to the viral ICU, patient was intubated, sedated, placed on the ventilator, started on broad-spectrum antibiotic therapy, Decadron, she did receive 1 dose of remdesivir, but subsequently was not a candidate for remdesivir given her acute renal failure, received fluid therapy, received pressor therapy, nephrology was consulted, pulmonary was consulted. For patient's acute respiratory failure with hypoxia secondary to COVID-19 pneumonia, strep pneumoniae secondary bacterial infection, pulmonary edema, she was intubated, sedated, placed on the ventilator, received broad-spectrum antibiotic therapy, as needed Lasix therapy as her renal function improved. Due to persistent fevers, and improving renal function, she was started on remdesivir. On the morning of 07/10/2020, patient developed tachypnea, septic shock requiring , requiring pressors, sinus bradycardia, anemia hemoglobin 5.3 on hold, no signs of active bleeding. Overnight physician spoke to family, they wanted to pursue DNR/DNI. When I arrived in the morning, patient had agonal breathing, heart rate was 44, pupils were fixed dilated, no carotid pulse was measurable, no meaningful responses, I spoke to Raymond Yap who is the DPOA, after discussion of the risks and benefits, proceeded to make patient DNR/DNI, did not want aggressive interventions. Patient 07/10/2020 at 7:25 AM. (1) Pneumonia due to 2018 novel coronavirus: -Started on remdesivir dose 2/ Status: Acute (2) Atrial fibrillation with RVR: -Currently normal sinus rhythm -Went back into A. fib with RVR the morning of 07/10/2020 -Cardizem drip as needed -Heparin drip Status: Acute (3) Type 2 diabetes mellitus: A1c, moderate dose sliding scale Status: Acute Qualifiers: Diabetes mellitus [facility] insulin use: unspecified long term care pharmacist insulin use status Diabetes mellitus complication status: with other specified complication Qualified Code(s): E11.69 - Type 2 diabetes mellitus with other specified complication (4) NSTEMI (non-ST elevated myocardial infarction): -Likely supply demand ischemia from acute respiratory failure, septic shock, lactic acidosis -Continue aspirin 81 mg, atorvastatin 40 mg -Echocardiogram shows EF of 55%, segmental wall motion analysis difficult to analyze because of arrhythmia, however no gross wall motion abnormalities were noted -Continue telemetry monitoring Status: Acute (5) Septic shock: Resolved Status: Acute (6) Acute respiratory failure with hypoxia: -Secondary to COVID-19 pneumonia, secondary bacterial infection, UTI, pulmonary edema -Evidence of multiorgan failure, resolving -Evidence of DIC resolving -A. fib with RVR, delivered helped overnight -Evidence of septic shock, developed overnight -CT of the chest shows bilateral lower lobe atelectasis and pneumonia, minimal peripheral pulmonary infiltrates -Respiratory cultures growing strep pneumoniae, urine cultures growing Pseudomonas -COVID-19 PCR, and rapid was positive PLAN: -Admit to viral ICU -Patient was a full code initially, changed to DNR/DNI -Patient's DPOA is Sukh Raymond counts [phone], I have already updated on patient's status -Mentation at baseline the patient is alert to self, to family members, wheelchair-bound -The morning of 07/09/2020 currently she does open her eyes, she does follow me, she did squeeze my fingers, but mentation does wax and wane, CT of the head was negative for intracranial hemorrhage or bleed -Right central line in place, x-ray no pneumothorax, tip over SVC, will remove -Resume heparin drip hypercoagulability associate with COVID-19 -Anemia likely secondary to bone marrow suppression, acute renal failure, sepsis hemoglobin down to 5.3, no overt signs of bleeding, continue Protonix, status post 2 units PRBC this admission, heparin drip on hold -On the ventilator, minimize PEEP, minimize FiO2, daily sedation vacations, weaning trial, stopped according to family -Fentanyl and propofol for sedation stopped overnight -Decadron -Remdesivir status post 2 doses -Broad-spectrum antibiotics Primaxin, azithromycin, vancomycin -tube feeds, Jevity, low-dose sliding scale, Levemir 10 units twice daily, maintain blood sugars between 180-225 -Fluids have been stopped for hypovolemic hyponatremia, urine output 4.9 cc, creatinine 0.8, has generalized edema, will give 40 mg of Lasix today, consider giving 40 mg in the evening -Back into A. fib with RVR overnight, on Cardizem drip - Levophed, maintain MAP greater than 65, -Follow urine cultures Pseudomonas, blood cultures negative so far, respiratory cultures strep pneumoniae, urine bacterial antigens -Follow serial inflammatory markers -Daily EKGs to monitor QTC -Consult pulmonary service -Given persistent fevers, elevated leukocytosis, elevated lactic acid, removed central line, culture tip, removes Kowalski catheter, culture tip, placed PICC line in the meantime as she is possibly heading down sepsis, repeat blood cultures, urine cultures, sputum cultures, remdesivir 07/09/2020 Status: Acute (7) Acute renal insufficiency: -Acute kidney injury, secondary to sepsis, secondary to dehydration, creatinine 0.6 -Continue to monitor Status: Acute (8) DIC (disseminated intravascular coagulation): Resolving Status: Acute (9) Hypernatremia: Resolved Status: Acute (10) Secondary bacterial pneumonia: Status: Acute (11) Lactic acidosis: Lactic acid this morning 3.0 Status: Acute (12) UTI (urinary tract infection): Primaxin as above, CT abdomen pelvis shows left nephrolithiasis, small stone in proximal left ureter, no evidence hydronephrosis, urine growing Pseudomonas Status: Acute (13) Dehydration with hypernatremia: -Hypovolemic hypernatremia - Status: Acute (14) Transaminitis: Status: Acute (15) Injury of left subclavian artery: -ct chest showed: The catheter entering along the left side of the neck is intra arterial in position with its tip in the ascending thoracic aorta. -us LUE showed;Patent left subclavian, axillary, brachial, distal radial and ulnar arteries. The proximal and mid brachial, radial and ulnar arteries were not visualized Possibly no significant arterial obstruction, based on the above findings. Technically somewhat limited study -Site looks clean and dry, no active bleeding pressure dressing applied -It has been more than 48 hours since her arterial injury -No active bleeding around site Status: Acute (16) IV infiltration: Left arm, area looks clean and dry, no skin mottling, good blanching, ultrasound over the area shows left cephalic vein thrombophlebitis Additional Data Confirmation of as documented by pronouncing clinician: no pulse, no respirations and pupils fixed and dilated Family: contacted Additional persons at bedside: nursing staff Attending/PCP notified?: Attending notified Advance directives?: No Discharge Plan Discharge Patient Disposition: Condition: Stable Prescriptions: No Action zinc 100 mg Tablet 100 mg PO DAILY RF: 0 azithromycin 250 mg Tablet 250 mg PO DAILY RF: 0 dexamethasone 6 mg Tablet 6 mg PO DAILY RF: 0 Vitamin C 1,500 mg Tablet 1 tab PO DAILY RF: 0 Vitamin D3 125 mcg (5,000 unit) Tablet 125 mcg PO DAILY RF: 0 metformin 500 mg Tablet 500 mg PO DAILY RF: 0 fluticasone propion-salmeterol [Advair Diskus] 250-50 mcg/dose Blister With Device 1 inh INHALATION BID RF: 0 atorvastatin 20 mg Tablet 20 mg PO DAILY RF: 0 divalproex 250 mg Tablet,Delayed Release (Dr/Ec) 250 mg PO BID RF: 0 cyanocobalamin (vitamin B-12) 1,000 mcg Tablet 1,000 mcg PO DAILY RF: 0 amlodipine [Norvasc] 5 mg Tablet 5 mg PO DAILY RF: 0 aspirin [Aspir-81] 81 mg Tablet,Delayed Release (Dr/Ec) 81 mg PO DAILY RF: 0 venlafaxine 100 mg Tablet 100 mg PO BID RF: 0 benztropine 1 mg Tablet 1 mg PO DAILY RF: 0 omeprazole 20 mg Capsule,Delayed Release(Dr/Ec) 20 mg PO DAILY RF: 0 folic acid 1 mg Tablet 1 mg PO DAILY RF: 0 montelukast [Singulair] 10 mg Tablet 10 mg PO DAILY RF: 0 mirtazapine 15 mg Tablet 15 mg PO DAILY RF: 0 fluticasone propionate [Flonase Allergy Relief] 50 mcg/actuation [place],Suspension 2 spray INTRANASAL DAILY RF: 0 memantine 5 mg Tablet 5 mg PO BID RF: 0 metoprolol tartrate 25 mg Tablet 25 mg PO DAILY RF: 0 T-Gel Shampoo See Rx Instructions .ROUTE .COMPLEX RF: 0 sennosides-docusate sodium [Senna-S] 8.6-50 mg Tablet 1 tab-cap PO BID PRN (Reason: Constipation) RF: 0 bisacodyl 10 mg Suppository 10 mg VT DAILY PRN (Reason: Constipation) RF: 0 docusate sodium [Colace] 100 mg Capsule 100 mg PO BID PRN (Reason: unknown) RF: 0 Referrals: [facility] [Outside] DS Attestations Time Spent in /Discharge Care*: greater than 30 min Quality - AMI: AMI present?: No Quality - Stroke: CVA present?: No Symptom Onset Unknown: No Quality - VTE: VTE present?: No Deep Vein Thrombosis/Pulmonary Embolism Present on Admission: No Coding Level of Care Code Acute Climatology Teacher for [facility] Fwd Diagnoses Pneumonia due to 2019 novel coronavirus U07.1; J12.89 Atrial fibrillation with RVR I48.91 Type 2 diabetes mellitus E11.69 Diabetes mellitus [facility] use: unspecified [facility] use status Diabetes mellitus complication status: with other specified complication NSTEMI (non-ST elevated myocardial infarction) I21.4 Septic shock A41.9; R65.21 Acute respiratory failure with hypoxia J96.01 Acute renal insufficiency N28.9 DIC (disseminated intravascular coagulation) D65 Hypernatremia E87.0
[2020-07-14 18:27] LABS: Aspergillus AG,EIA,Serum NOT DETECTED; Aspergillus Galactomannan Inde <0.50
== END 2020-07-10 11:00 | disposition expired | DRG 870 ==
LOC: ER 17:03 → ICU 21:51
PROVIDERS: Emergency Medicine; Internal Medicine Nephrology; Internal Medicine Pulmonary Disease; Admitting Provider Internal Medicine; Emergency Provider Emergency Medicine; Visit Provider Family Medicine
DX: A41.9 Sepsis, unspecified organism (principal); R65.21 Severe sepsis with septic shock; U07.1 COVID-19; J12.89 Other viral pneumonia; J96.01 Acute respiratory failure with hypoxia; J15.9 Unspecified bacterial pneumonia; S25.102A Unspecified injury of left innominate or subclavian artery, initial encounter; D65 Disseminated intravascular coagulation [defibrination syndrome]; I21.A1 Myocardial infarction type 2; N39.0 Urinary tract infection, site not specified; E87.1 Hypo-osmolality and hyponatremia; N17.9 Acute kidney failure, unspecified; E87.4 Mixed disorder of acid-base balance; T80.1XXA Vascular complications following infusion, transfusion and therapeutic injection, initial encounter; Z86.73 Personal history of transient ischemic attack (TIA), and cerebral infarction without residual deficits; Z87.440 Personal history of urinary (tract) infections; J44.9 Chronic obstructive pulmonary disease, unspecified; I10 Essential (primary) hypertension; E11.65 Type 2 diabetes mellitus with hyperglycemia; K21.9 Gastro-esophageal reflux disease without esophagitis; G89.29 Other chronic pain; M54.9 Dorsalgia, unspecified; F41.9 Anxiety disorder, unspecified; F32.9 Major depressive disorder, single episode, unspecified; E86.0 Dehydration; B96.5 Pseudomonas (aeruginosa) (mallei) (pseudomallei) as the cause of diseases classified elsewhere; Z66 Do not resuscitate; R31.9 Hematuria, unspecified; I80.8 Phlebitis and thrombophlebitis of other sites; B95.3 Streptococcus pneumoniae as the cause of diseases classified elsewhere; I95.9 Hypotension, unspecified; I48.91 Unspecified atrial fibrillation
CPT/HCPCS: 12345; 31500; 36415; 36416; 36430; 36556; 36569; 36592; 36600; 51702; 70450; 70490; 71045; 71250; 74018; 74176; 76770; 80053; 80164; 80202; 81001; 82436; 82533; 82550; 82570; 82803; 82962; 83605; 83735; 83880; 84100; 84133; 84145; 84156; 84295; 84300; 84443; 84484; 84540; 84550; 85007; 85014; 85018; 85025; 85362; 85378; 85384; 85610; 85730; 85999; 86140; 86403; 86850; 86900; 86920; 87040; 87070; 87075; 87077; 87086; 87106; 87186; 87205; 87305; 87426; 87493; 87635; 87641; 87804; 93005; 93306; 93931; 93971; 94002; 94003; 94640; 94799; 96372; 96375; 99284; 99291; C9113; J0131; J0282; J0330; J0456; J0743; J1100; J1644; J1650; J1815; J1940; J2060; J2250; J2370; J2704; J3010; J3370; J3490; J7030; J7040; J7050; J7060; P9016; Q3014